=== PATIENT | male | born 1945 | race Caucasian/White ===

== ENCOUNTER → 2017-03-06 | Day surgery (SDC) | payer OTHER, BC ==
[2017-03-05 07:34] VITALS: Ht 170.2 cm; Wt 113.6 kg
[~2017-03-06] VITALS: Ht 170.2 cm; Wt 113.6 kg
[~2017-03-06] MED LIST: ACET-749 PO; ACETAMINOPHEN/CODEINE 300/30MG TAB PO PRN; ALLO300T2 PO; ATOR-54 PO; ATROPINE SULFATE 0.1 MG/ML 5ML SYR IV PRN; BUPIVACAINE 0.5 % 5 MG/1 ML MPF 30ML VIAL ONE; CLINDAMYCIN PHOS 150 MG/ML 2 ML VIAL IV SCH; DEXAMETHASONE SOD INJ 4 MG/ML VIAL ONE; FENTANYL CITRATE INJ 50 MCG/1 ML 2 ML VIAL IV PRN; FENTANYL CITRATE INJ 50 MCG/1 ML 2 ML VIAL ONE; KRIL1000 PO; LABETALOL HCL IV 5 MG/ML 20ML IV PRN; LACTATED RINGER'S 1000ML 1,000 ML IV SCH; LIDOCAINE HCL 2% 2 ML VIAL (20MG/ML) ONE; LIDOCAINE HCL 2% LOCAL 20 ML VIAL ONE; LISI20TA3 PO; MIDAZOLAM HCL 1 MG/ML 2ML VIAL ONE; NAPR1TAB9 PO; ONDANSETRON INJ 2 MG/ML 2 ML VIAL IV PRN; ONDANSETRON INJ 2 MG/ML 2 ML VIAL ONE; PANT40TA PO; PROPOFOL IV EMULSION 10 MG/ML 20 ML VIAL IV ONE; SODIUM CHLORIDE 0.9% 1000ML 1,000 ML IV SCH
--- NOTE | 2017-03-06 06:53 | History & Physical Bridge - [place] ---
H&P Re-Evaluation Bridge Note: I have examined the patient, reviewed the History & Physical and in the interval since the performance of the History & Physical I have noted the following changes of clinical significance: No changes noted
--- NOTE | 2017-03-06 07:35 | [facility] Post Operative Brief Note ---
Immediate Operative Summary Operative Date Mar 06, 2017. Pre-Operative Diagnosis Right Carpal Tunnel Syndrome Post-Operative Diagnosis Same Procedure(s) Performed Right Carpal Tunnel Release Surgeon Dr Atkinson Gettering Filament Machine Operator Surgeon(s) Norm Dukes PA-C Estimated Blood Loss Minimal Findings Right Carpal Tunnel Syndrome Specimens None Anesthesia Local with IV Sedation Complication(s) None Disposition Recovery Room / PACU
--- NOTE | 2017-03-06 07:36 | Discharge Instructions-SurgCtr ---
Discharge Instructions Date of Service Mar 06, 2017. Visit Reason for Visit: Right Carpal Tunnel Syndrome Discharge Discharge Diagnosis / Problem: RIGHT CARPAL TUNNEL SYNDROME Discharge Goals Goal(s): Decrease discomfort, Improve function, Therapeutic intervention Activity Recommendations Activity Limitations: per Instructions/Follow-up section LIMITED USE OF RIGHT HAND Anesthesia . Post Anesthesia Instructions: If you have had General Anesthesia or IV Sedation: * Do not drive today. * Resume driving when surgeon permits. * Do not make important decisions or sign legal documents today. * Call surgeon for: 1. Temperature elevations greater than 101 degrees F. 2. Uncontrollable pain. 3. Excessive bleeding. 4. Persistent nausea and vomiting. 5. Medication intolerance (nausea, vomiting or rash). * For nausea and vomiting use only clear liquids such as: tea, soda, bouillon until nausea subsides, then gradually increase diet as tolerated. * If you have any concerns or questions, call your surgeon's office. If physician is unavailable and it is an emergency, call 911 or go to the nearest emergency room. . Instructions / Follow-Up Instructions / Follow-Up MEDICATIONS: * Resume previous medications unless instructed otherwise by your surgeon. * Always take pain medication on a full stomach or with food to avoid upset stomach. * Do not drink alcohol or drive while taking narcotics. * Ibuprofen or Tylenol may be taken if narcotic not needed. SPECIAL CARE INSTRUCTIONS: __ None __ Keep extremity elevated and iced x 48 hours; apply ice 20-30 minutes 8-10 times/day. May remove at night. __ Sling __24 hrs/day __ Remove at night __ Shoulder Immobilizer __ 24 hrs/day __ Remove at night _X_ Dressing _X_ Maintain until seen in office, may shower with plastic over site __ Remove dressings in 24-48 hours and then may shower __ Cover incisions with band-aids after showering __ Do not remove steri-strips Call physician if chills or temperature rises above 102 degrees or pain unrelieved by prescribed pain medications at . . FOLLOW UP IN 2 WEEKS Diet Recommendations Home Diet: resume previous diet Procedures Procedures Performed: Right Carpal Tunnel Release Pending Studies Studies pending at discharge: no Medical Emergencies . Who to Call and When: Medical Emergencies: If at any time you feel your situation is an emergency, please call 911 immediately. . Non-Emergent Contact Non-Emergency issues call your: Surgeon . . "Provider Documentation" section prepared by Moreno Dukes. .
[2017-03-06 07:37] VITALS: TEMP 36.9
--- NOTE | 2017-03-06 07:50 | OPERATIVE REPORT ---
DATE OF OPERATION: 03/06/2017 SURGEON: Farhan Atkinson MD. RADIO ARTIST: REGLA Aceves. PREOPERATIVE DIAGNOSIS: Right carpal tunnel syndrome. POSTOPERATIVE DIAGNOSIS: Same. PROCEDURE PERFORMED: Right carpal tunnel release. COMPLICATION: None. ESTIMATED BLOOD LOSS: Minimal. TOURNIQUET TIME: 7 minutes at 250 mmHg. ANESTHESIA: Local with IV sedation. OPERATIVE INDICATIONS: The patient is a 71-year-old gentleman who has had a several-year history of right hand pain, discomfort and numbness consistent with a fairly classic carpal tunnel syndrome. His symptoms continued to progress despite conservative care. Significant nighttime awakening. He had some slight thenar atrophy as well. The patient elected to proceed with operative treatment. OPERATIVE PROCEDURE: The patient taken to the operating room, identified and placed on the operating table in supine position. All contact areas were appropriately padded. IV antibiotics provided by anesthesia team. A right forearm tourniquet was placed. Some IV sedation was provided. 9 mL of a 50:50 combination of 0.5% Marcaine and 2% lidocaine were then injected in and around the proposed incision site. The right hand was then prepped and draped in the usual sterile fashion. The right arm was elevated and exsanguinated with Esmarch and tourniquet was placed at 250 mmHg. A 3 cm incision was made in the palm, just ulnar to the palmaris longus tendon. Blunt dissection was carried out through the subcutaneous tissues down to the level of the palmar fascia. The palmar fascia was incised longitudinally in line with skin incision. The underlying transverse carpal ligament was identified. It was cleaned of all soft tissues. It was transected distally with use of a Donaldson blade knife and then bluntly spread. Attention then drawn proximally. Blunt dissection was carried out above and below the ligament proximally. The ligament was transected for a minimum distance of 3 cm proximal to the wrist flexion crease. The ligament was bluntly spread and found to be completely released. Of note, there was significant compression of the nerve underneath the ligament. The tourniquet was then let down for a tourniquet time of 7 minutes. Hemostasis was assured with use of electrocautery. The wound was once again irrigated. The skin was closed with 5-0 nylon suture in a horizontal mattress fashion. The hand was then cleaned and dried, and a sterile dressing of Xeroform, 4 x 4, sterile cast padding and Jaime bandage were applied. The patient then transferred to the recovery room in stable condition. The patient tolerated the procedure well with no complications. All needle and sponge counts were correct at the end of the operation. I attest to the content of the Intraoperative Record and any orders documented therein. Any exceptio ns are noted below.
[2017-03-06 07:58] VITALS: BP 137/84; PULSE 70; O2SAT 98
--- NOTE | 2017-03-06 08:05 | Anesthesia Progress Nt - [facility] ---
Anesthesia Post Op Note Date & Time Mar 06, 2017 at 08:04 Vital Signs Pain Intensity: 0 Vital Signs Past 12 Hours Date Time Temp Pulse Resp B/P Pulse Ox O2 Delivery O2 Flow Rate FiO2 03/06/17 07:58 70 18 137/84 98 Room Air 03/06/17 07:37 36.9 76 18 121/68 93 Room Air 03/06/17 06:22 36.8 79 20 139/78 96 Room Air Notes Mental Status: alert / awake / arousable, participated in evaluation Pt Amnestic to Procedure: Yes Nausea / Vomiting: adequately controlled Pain: adequately controlled Airway Patency, RR, SpO2: stable & adequate BP & HR: stable & adequate Hydration State: stable & adequate Anesthetic Complications: no major complications apparent
== END | disposition home or self-care (01) ==
LOC: X.SURG 06:06
PROVIDERS: ATTEND Orthopaedic Surgery Sports Medicine
DX: G56.01 Carpal tunnel syndrome, right upper limb (principal); I10 Essential (primary) hypertension; Z88.0 Allergy status to penicillin; Z96.651 Presence of right artificial knee joint; M19.90 Unspecified osteoarthritis, unspecified site

== ENCOUNTER → 2017-05-16 | Outpatient (CLI) | payer OTHER, BC ==
[~2017-05-16] MED LIST changes: -ACETAMINOPHEN/CODEINE 300/30MG TAB PO PRN; -ATROPINE SULFATE 0.1 MG/ML 5ML SYR IV PRN; -BUPIVACAINE 0.5 % 5 MG/1 ML MPF 30ML VIAL ONE; -CLINDAMYCIN PHOS 150 MG/ML 2 ML VIAL IV SCH; -DEXAMETHASONE SOD INJ 4 MG/ML VIAL ONE; -FENTANYL CITRATE INJ 50 MCG/1 ML 2 ML VIAL IV PRN; -FENTANYL CITRATE INJ 50 MCG/1 ML 2 ML VIAL ONE; -LABETALOL HCL IV 5 MG/ML 20ML IV PRN; -LACTATED RINGER'S 1000ML 1,000 ML IV SCH; -LIDOCAINE HCL 2% 2 ML VIAL (20MG/ML) ONE; -LIDOCAINE HCL 2% LOCAL 20 ML VIAL ONE; -MIDAZOLAM HCL 1 MG/ML 2ML VIAL ONE; -ONDANSETRON INJ 2 MG/ML 2 ML VIAL IV PRN; -ONDANSETRON INJ 2 MG/ML 2 ML VIAL ONE; -PROPOFOL IV EMULSION 10 MG/ML 20 ML VIAL IV ONE; -SODIUM CHLORIDE 0.9% 1000ML 1,000 ML IV SCH
[2017-05-16 09:37] LABS: BASO % 0.7 %; BASO ABS # 0.05 K/uL (0-0.2); COMPLETE YES; EOS % 4.7 %; HEMATOCRIT 42.3 % (42-52); IG% 0.4 %; LYMPH % 23.9 %; LYMPH ABS # 1.78 K/uL (1.2-3.4); MEAN CELL VOLUME 93.8 fL (80-100); MEAN CORPUSCULAR HEMOGLOBIN 29.5 pg (25-34); MEAN CORPUSCULAR HGB CONC 31.4 g/dl (32-36); MEAN PLATELET VOLUME 10.4 fL (7.4-10.4); MONO % 11.4 %; NEUT % 58.9 %; PLATELET COUNT 251 K/uL (130-400); RED BLOOD COUNT 4.51 M/uL (4.7-6.1); WHITE BLOOD COUNT 7.46 K/uL (4.8-10.8)
[2017-05-16 09:49] LABS: BLOOD UREA NITROGEN 28 mg/dl (7-18); BUN/CREATININE RATIO 21.3 (10-20); CALCIUM 9.4 mg/dl (8.5-10.1); CARBON DIOXIDE 23 mmol/L (21-32); CHLORIDE 104 mmol/L (98-107); GLUCOSE 95 mg/dl (70-99); POTASSIUM 4.8 mmol/L (3.5-5.1); SODIUM 135 mmol/L (136-145)
== END | disposition home or self-care (01) ==
LOC: C.LAB1850 07:00
PROVIDERS: ATTEND Internal Medicine Geriatric Medicine
DX: I10 Essential (primary) hypertension (principal); D64.9 Anemia, unspecified

== ENCOUNTER → 2017-08-05 | Outpatient (CLI) | payer OTHER, BC ==
[2017-08-05 13:24] LABS: BASO % 0.6 %; BASO ABS # 0.05 K/uL (0-0.2); COMPLETE YES; EOS % 2.8 %; IG% 0.5 %; LYMPH % 20.5 %; LYMPH ABS # 1.64 K/uL (1.2-3.4); MEAN CELL VOLUME 93.4 fL (80-100); MEAN CORPUSCULAR HEMOGLOBIN 32.1 pg (25-34); MEAN CORPUSCULAR HGB CONC 34.4 g/dl (32-36); MEAN PLATELET VOLUME 10.5 fL (7.4-10.4); MONO % 12.5 %; NEUT % 63.1 %; PLATELET COUNT 220 K/uL (130-400); RED BLOOD COUNT 4.39 M/uL (4.7-6.1)
[2017-08-05 17:26] LABS: ALT/SGPT 35 U/L (12-78); AMYLASE 79 U/L (25-115); AST/SGOT 27 U/L (15-37); BLOOD UREA NITROGEN 25 mg/dl (7-18); BUN/CREATININE RATIO 20.6 (10-20); CALCIUM 9.4 mg/dl (8.5-10.1); CARBON DIOXIDE 26 mmol/L (21-32); CHLORIDE 104 mmol/L (98-107); GLUCOSE 90 mg/dl (70-99); POTASSIUM 4.8 mmol/L (3.5-5.1); SODIUM 136 mmol/L (136-145)
[2017-08-05 17:29] LABS: ALB/GLOB RATIO 0.9 (0.9-2); ALKALINE PHOSPHATASE 75 U/L (45-117)
== END | disposition home or self-care (01) ==
LOC: C.LABBC 12:22
PROVIDERS: ATTEND Physician Assistant Medical
DX: R10.9 Unspecified abdominal pain (principal)

== ENCOUNTER → 2017-12-03 | Outpatient (CLI) | payer OTHER, BC ==
[~2017-12-03] MED LIST changes: -ACET-749 PO
[2017-12-03 09:33] LABS: BASO % 0.8 %; BASO ABS # 0.05 K/uL (0-0.2); EOS % 4.2 %; EOS ABS # 0.27 K/uL (0-0.5); HEMATOCRIT 40.7 % (42-52); HEMOGLOBIN 13.8 g/dL (14.0-18.0); IG# 0.02 K/uL (0.00-0.02); LYMPH % 25.8 %; LYMPH ABS # 1.68 K/uL (1.2-3.4); MEAN CELL VOLUME 95.1 fL (80-100); MEAN CORPUSCULAR HEMOGLOBIN 32.2 pg (25-34); MEAN CORPUSCULAR HGB CONC 33.9 g/dl (32-36); MONO ABS # 0.78 K/uL (0.11-0.59); NEUT % 56.9 %; PLATELET COUNT 249 K/uL (130-400); RED CELL DISTRIBUTION WIDTH SD 47.9 fL (36.4-46.3)
[2017-12-03 10:23] LABS: ALBUMIN 3.6 gm/dl (3.4-5.0); ALT/SGPT 35 U/L (12-78); AST/SGOT 27 U/L (15-37); BLOOD UREA NITROGEN 23 mg/dl (7-18); CALCIUM 9.6 mg/dl (8.5-10.1); CARBON DIOXIDE 28 mmol/L (21-32); CHOLESTEROL 165 mg/dl (0-200); CREATININE 1.17 mg/dl (0.60-1.40); GLUCOSE 93 mg/dl (70-99); POTASSIUM 4.3 mmol/L (3.5-5.1); SODIUM 138 mmol/L (136-145)
[2017-12-03 10:34] LABS: ALKALINE PHOSPHATASE 65 U/L (45-117); LDL CHOLESTEROL CALCULATED 74 mg/dl; TOTAL PROTEIN 7.4 gm/dl (6.4-8.2); URIC ACID 4.6 mg/dl (2.6-7.2)
== END | disposition home or self-care (01) ==
LOC: C.LAB1850 06:54
PROVIDERS: ATTEND Internal Medicine Geriatric Medicine
DX: Z12.5 Encounter for screening for malignant neoplasm of prostate (principal); I10 Essential (primary) hypertension; E78.5 Hyperlipidemia, unspecified; M19.90 Unspecified osteoarthritis, unspecified site; D64.9 Anemia, unspecified; M10.9 Gout, unspecified; R73.9 Hyperglycemia, unspecified; Z68.41 Body mass index [BMI] 40.0-44.9, adult

== ENCOUNTER 2022-02-01 06:37 | Inpatient (IN) ==
--- NOTE | 2022-01-26 13:39 | Anesthesiology Consultation ---
Date of Service January 26, 2022 Assessment & Plan (1) Encounter for pre-operative examination: Chart Review Chart Review: Acceptable Risk for Surgery (pending preop Covid testing results ) and Patient NOT seen in Pre Admission Testing Pt initially scheduled 12/04/21 for surgery (seen in PAT 11/14/21)- patient rescheduled to 02/01/22 Per nursing assessment 01/26/2022, patient denies any recent travel. Wears mask in public. No known Covid infection in the past 90 days. Patient is fully vaccinated for Covid. No known Covid positive exposures or Covid related symptoms. Preop Covid testing scheduled 01/30/22= will await results Patient seen by cardiology 11/24/2021= patient seen for preoperative cardiovascular evaluation. Recent diagnosis of left bundle branch block. "He is currently stable and asymptomatic from a cardiovascular standpoint with no anginal symptoms or shortness of breath. His functional status is somewhat limited due to his knee arthritis, though, and ECG shows new LBBB.Given his limited functional status, new LBBB, and cardiovascular risk factors, will perform a pharmacologic nuclear stress test to further evaluate for myocardial ischemia prior to surgery. The nuclear study will be scheduled in the near future. Pending the results, patient is at an acceptable risk to proceed with orthopedic surgery." Per cardio communication note 12/15/21= "Please notify patient that his stress test was normal... He can proceed with surgery from a heart standpoint." History Surgery Operation Date: 02/01/22 12:30 Proposed Procedures p Left Total Knee Arthroplasty - Farhan Atkinson MD Height/Weight Height: 5 ft 3 in Weight: 97 kg Allergies Allergy/AdvReac Type Severity Reaction Status Date / Time Penicillins Allergy Intermediate RASH Verified 01/26/22 11:52 clindamycin Allergy Unknown Rash Verified 01/26/22 11:52 shellfish derived Allergy Unknown Rash-WITH Verified 01/26/22 12:14 SHELLFISH Medications Home Medications Medication Instructions Recorded Confirmed Last Taken Prevagen 1 dose PO QAM 10/30/21 01/26/22 Unknown allopurinol 300 mg tablet 300 mg PO QAM 10/30/21 01/26/22 Unknown amino acids (Amino Acid) 1 cap PO QAM 10/30/21 01/26/22 Unknown atorvastatin 40 mg tablet 40 mg PO QAM 10/30/21 01/26/22 Unknown famotidine 20 mg tablet 20 mg PO QAM PRN 10/30/21 01/26/22 Unknown lisinopril 40 mg tablet 40 mg PO QAM 10/30/21 01/26/22 Unknown pantoprazole 40 mg tablet,delayed 40 mg PO QAM 10/30/21 01/26/22 Unknown release Past Medical History Medical History Chronic kidney disease F/U PCP GERD (gastroesophageal reflux disease) Well controlled and stable Gout No recent issues Hx of hiatal hernia Hyperlipidemia Hypertension Lumbar radiculopathy Mild cognitive disorder Osteoarthritis Past Family History Family History Mother Myocardial infarction Father Lung cancer Denies family history of Ovarian cancer Prostate cancer Breast cancer Colorectal cancer Past Surgical History Surgical History History of carpal tunnel release bilat History of colonoscopy History of total right knee replacement History of ventral hernia repair History of wisdom tooth extraction S/P cholecystectomy Social History Smoking Status: Never smoker Do You Dip or Chew Tobacco: No Hx Alcohol Use: Yes Alcohol type: beer alcohol intake frequency: a few times a week Hx Substance Use: No substance use type: does not use Lab Results Anesthesia Preop Results Results Anesthesia Widget: WBC 6.39 K/uL (4.8-10.8) 01/25/22 Hgb 13.3 g/dL (14.0-18.0) L 01/25/22 Hct 40.5 % (42-52) L 01/25/22 Plt 267 K/uL (130-400) 01/25/22 Na 139 mmol/L (136-145) 01/25/22 K 3.5 mmol/L (3.5-5.1) 01/25/22 Cl 104 mmol/L (98-107) 01/25/22 CO2 29 mmol/L (21-32) 01/25/22 BUN 17 mg/dl (6-23) 01/25/22 Creat 1.12 mg/dl (0.6-1.4) 01/25/22 Glucose Level 92 mg/dl (70-99(Fasting)) 01/25/22 PT 11.9 Seconds (9.0-12.0) 01/25/22 INR 1.1 (0.9-1.1) 01/25/22 Blood Type O Negative 01/25/22 Antibody Screen NEGATIVE 01/25/22 Lab Comments: Pt's creatinine on initial preop testing on 11/14/21 was 1.51- did inform PCP- had repeat labs- PCP changed patient from Aleve to Tylenol and cleared patient to proceed with surgery 12/22/21 per [employer] Communication notes- pt's creatinine improved on 01/25/22 labs Testing Electrocardiogram Date: 11/14/21 Findings: + NSR @ (73bpm) LBBB (Referred to cardio- had negative nuclear stress test 12/14/21) Chest X-Ray Date: 11/14/21 Findings: + NAD and + cardiomegaly (mild) Stress Test Date: 12/14/21 Type: nuclear Negative myocardial perfusion study for ischemia or infarct. Hyperdynamic LV systolic function. EF 71%. Normal wall motion. Left bundle branch block developed at faster heart rate suggesting rate related bundle. No Lexiscan induced symptoms. Indeterminate Lexiscan EKG due to left bundle branch block.
--- NOTE | 2022-01-29 00:50 | History and Physical Report ---
CHIEF COMPLAINT: Left knee pain and discomfort. HISTORY OF PRESENT ILLNESS: The patient is a 76-year-old gentleman well known to me from a previous right knee replacement 9 years ago. Over the years, he has developed increased pain and discomfort in his left knee. It is a global pain. The more he is up on it, the more it hurts. He limps more as the day goes on. He has difficulty going up and down steps. He uses a cane intermittently. The more he is up on it, the more it hurts. He has failed conservative treatment and would like to have his left knee replaced. Very happy with his right knee. PAST MEDICAL HISTORY: 1. Osteoarthritis. 2. Elevated cholesterol. 3. Hypertension. 4. Obesity with a BMI of 40. PAST SURGICAL HISTORY: Includes, 1. Cholecystectomy. 2. Right knee replacement done on 11/19/2011. 3. Left carpal tunnel release. ALLERGIES: PENICILLIN, REACTION IS UNKNOWN. ALSO, DESCRIBES AN ALLERGY TO CLINDAMYCIN. CURRENT MEDICATIONS: Include, 1. Allopurinol. 2. Atorvastatin. 3. Lisinopril. 4. Famotidine. 5. Unspecified med. SOCIAL HISTORY: A 76-year-old male. He is . One drink per week. He does not smoke. FAMILY HISTORY: Significant for lung cancer. REVIEW OF SYSTEMS: Negative for diabetes. Denies any chest pain or shortness of breath. No history of DVT or PE. He has a limited walking tolerance due to his knee. He did have a cardiac stress test, which was normal. PHYSICAL EXAMINATION: GENERAL: Shows a large middle-aged male. He looks to be in reasonably good health. HEENT: Benign. NECK: Supple. No lymphadenopathy. LUNGS: Clear to auscultation. HEART: Has a regular rate and rhythm. ABDOMEN: Soft, nontender, nondistended. EXTREMITIES: Grossly neurovascularly intact except as follows: Examination of the left knee reveals the patient walks with a stiff knee gait. He keeps his knee pretty straight. He does limp on this left side. Range of motion is about 5 degrees short of full extension to about 100 degrees of flexion at best. Fairly stiff knee. Small knee effusion. No pain with hip motion. Examination of the right knee reveals a well-healed incision. Anatomic alignment. Range of motion is 0-120. X-RAYS: X-rays of the left knee reveal advanced left knee tricompartment DJD. He has got complete loss of his medial joint space. He has significant tibiofemoral subluxation. He has got destruction of the medial tibial plateau. Osteophytes in all 3 compartments. ASSESSMENT: A 76-year-old male 9 years out from a right knee replacement with advanced left knee tricompartment degenerative joint disease. He has failed conservative measures. He has got other medical comorbidities including elevated cholesterol, hypertension, and obesity. PLAN: We are going to take him to the operating room and do a left knee replacement. The risks and benefits of this procedure were explained to the patient to include, but not limited to, DVT, PE, , infection, neurological injury, vascular injury, bleeding problems, pain, limited range of motion, stiffness, failure to relieve his symptoms, incomplete relief of symptoms, need for further surgery in the future, etc. The patient understands and desires to proceed. Informed consent was obtained. As far as discharge plans, he is going to be discharged to home using [facility]. We will likely put a stem in his tibia due to his severe deformity along with some vancomycin in the cement. Will hold the lisinopril the morning of surgery. Job ID: [id number] [facility]
[~2022-02-01 06:37] MED LIST changes: +ACETAMINOPHEN 500 MG TAB PO SCH; -ALLO300T2 PO; -ATOR-54 PO; +BUPIVACAINE 0.5 % 5 MG/1 ML PF 10ML VIAL ONE; -KRIL1000 PO; -LISI20TA3 PO; +LR 500ML BOLUS, THEN 15ML/HR IV SCH; +LR 60ML/HR IV SCH; -NAPR1TAB9 PO; -PANT40TA PO; +ceFAZolin 2000MG 2,000 MG/15 ML SYR IV SCH
--- NOTE | 2022-02-01 06:49 | History & Physical Bridge Note ---
Date of Service February 01, 2022 History & Physical Bridge Note I have examined the patient, reviewed the History & Physical and in the interval since the performance of the History & Physical I have noted the following changes of clinical significance: no changes noted
[2022-02-01] MEDS ORDERED: fentaNYL citrate 100 MCG/2 ML VIAL ONE (07:46)
[2022-02-01] MEDS ORDERED: MIDAZOLAM HCL 1 MG/ML 2ML VIAL ONE (07:46)
[2022-02-01] MEDS ORDERED: ATROPINE SULFATE 0.1 MG/ML 10ML SYR IV PRN (08:11)
[2022-02-01] MEDS ORDERED: fentaNYL citrate 100 MCG/2 ML VIAL IV PRN (08:11)
[2022-02-01] MEDS ORDERED: ePHEDrine sulfate 50 MG/ML AMP IV PRN (08:11)
[2022-02-01] MEDS ORDERED: ONDANSETRON INJ 2 MG/ML 2 ML VIAL IV PRN ×2 (08:11→12:36)
[2022-02-01] MEDS ORDERED: PROPOFOL IV EMULSION 10 MG/ML 20 ML VIAL IV ONE ×6 (08:12→10:41)
[2022-02-01] MEDS ORDERED: ONDANSETRON INJ 2 MG/ML 2 ML VIAL ONE (08:12)
[2022-02-01] MEDS ORDERED: ACETAMINOPHEN 500 MG TAB ONE (08:45)
[2022-02-01] MEDS ORDERED: FAMOTIDINE 20 MG TAB ONE (08:45)
[2022-02-01] MEDS ORDERED: TRANEXAMIC ACID / 0.7% NACL 1000MG/100ML BAG IV ONE (08:46)
[2022-02-01] MEDS ORDERED: SODIUM CHLORIDE 0.9% PF 50 ML VIAL ONE (09:05)
[2022-02-01] MEDS ORDERED: BUPIVACAINE/EPINEPHRINE 0.25% 1:200,000 30 ML VIAL ONE (09:05)
[2022-02-01] MEDS ORDERED: BUPIVACAINE LIPOSOME 1.3% 266 MG/20 ML VIAL ONE (09:06)
[2022-02-01] MEDS ORDERED: TRANEXAMIC ACID 1,000 MG **IV Intra-op IV SCH (09:15)
[2022-02-01] MEDS ORDERED: BUPIVACAINE LIPOSOME/PF 266 MG, BUPIVACAINE/EPINEPHRINE 50 ML, SODIUM CHLORIDE 0.9% 30 ... INFIL SCH (09:15)
[2022-02-01] MEDS ORDERED: FAMOTIDINE 20 MG TAB PO SCH (09:15)
[2022-02-01] MEDS ORDERED: LABETALOL HCL IV 5 MG/ML 20ML IV ONE (10:41)
--- NOTE | 2022-02-01 11:28 | Operative Report ---
[facility] Post Operative Report Pre & Post Diagnosis Operation Date: 02/01/22 08:50 Pre-Op Diagnosis: left knee tricompartment degenerative joint disease Post-Op Diagnosis: left knee tricompartment degenerative joint disease I identified the patient and participated in the time-out.: Yes Procedure Operation Date: 02/01/22 08:50 Actual Procedures p Left Total Knee Replacement(Left) - Farhan Atkinson MD Surgeon Farhan Atkinson MD Early Breastfeeding Care Specialist Norm Dukes PA-C Estimated Blood Loss 100 Findings Consistent with Post-Op Diagnosis Operative findings revealed extensive grade 4 [id number] disease in all 3 compartments. He had severe destruction medial tibial plateau. Large osteophytes in all 3 compartments. Fixed varus deformity to his knee and about a 10 degree flexion contracture. Chronic ACL deficiency. Fluids 500 cc Specimens Right knee sent for pathology Anesthesia Type Spinal MAC Complications none Disposition Accompanied Patient To Recovery: No Indications Patient is a 76-year-old gentleman said a long history of knee problems. He had a right knee replaced about 8 years ago and is done well from this. Over the past several years he developed increased pain discomfort in his knee. He has been through extensive conservative treatment. He was having trouble even walking at all due to his severe pain in this left knee. X-rays show extensive arthritis. He elected proceed with total knee arthroplasty. Patient had a very significant tibiofemoral subluxation and therefore we used a tibial stem to maximize that stability. Description of Procedure Operative implants consist of: 1 Biomet Vanguard size 65 left posterior stabilized femoral component. 2. Biomet size 71 tibial tray with an 80 mm x 14 mm stem with a 2.5 mm offset and small cruciate wing. 3. 14 mm posterior stabilized polyethylene insert. 4. 31 x 8 all polypatella. The patient was taken the operating, identified, and placed on the operating table supine position protectors were properly padded. IV antibiotics tried by anesthesia team. A spinal anesthetic and been implemented holding area. A White catheter was placed in sterile fashion. A left thigh tourniquet in place and left lower extremities then prepped and draped in usual sterile fashion. The left leg was elevated exsanguinated with use of an Esmarch in terms playset 300 mmHg. We eventually had to increase this to 350 as he continued to have some venous bleeding. An anterior approach left knee was then performed to longitudinal incision centered over the patella. Sharp dissection was carried through subcutaneous tissue down to the extensor mechanism. A medial parapatellar arthrotomy incision was made. Some subperiosteal dissection carried out medially. The fat pad was dissected from each patella tendon. Lateral patellofemoral ligament was released. Patella was subluxated laterally and the knee was flexed. The osteophyte taken off distal femur. ACL was absent. The notch was overgrown with bone. The osteophytes were removed from the notch. The PCL was then released from the distal femur and the tibia subluxated anteriorly. Due to his deformity we elect to use an IM guide to place a stem. The tibial eminence was resected. I reamed the IM canal up to 14. The reamer was left in place and the proximal tibial cut was made and was even above the most deficient area of the medial tibial. The tibia was then sized to a size 71. The 2.5 mm offset device was placed in the proximal tibia was prepared for a 2.5 mm offset stem small cruciate wing. The implant was assembled and placed in the tibia and fit nicely. Attention drawn the femur. Distal femur exam with a sharp drop with intramedullary canal was suction. A left 6 degree valgus cutting guide was placed. Distal femoral cutting block was pinned in place but distal femoral cut was made to take an additional 3 mm of bone off distal femur. Femur was then sized to a size 65. The AP cutting block was pinned parallel to the epicondylar axis which was 5 degrees of external rotation. The anterior cut, anterior chamfer, posterior cut, posterior chamfer cuts were made. The box cutting guide was placed in just slight lateral box cut was made. The knee was flexed. The remnants of the medial lateral menisci were excised. The osteophytes were taken off the posterior aspect of the femur. Trial femoral component was placed. The tibial tray was already in place. We then trialed the knee in the 14 mm insert for the seem to fit most appropriate and tried the most stability. Attention drawn the patella. Toe was cleaned of all soft tissue. Patella thickness measured 22 mm in thickness was cut down to 14. Was sized to a size 31 patella. The lug holes w ere drilled for the 31 patella. The lateral osteophyte is moved. Patella button was placed. Knee was taken through range of motion patella tracked nicely with no thumbs test. Attention drawn to placing permanent components. Nupathe all trial components were removed. Bone plug was placed in the distal femur to limit blood loss. A double batch of Palacos G cement was mixed. A Biomet Vanguard size 65 left posterior stabilized femoral component, a size 71 tibial tray with a 80 x 14 mm offset extension and a small cruciate wing, a 14 mm posterior stabilized polyethylene insert, and 31 x 8 all polypatella were then cemented in place. The knee was brought out in full extension total cement hardened. Final cement check was then performed. Pericapsular tissues were injected with total 100 cc of combination of 20 cc of Exparel, 30 cc normal saline, 50 cc of quarter Marcaine with epinephrine. Patient did receive 1 g tranexamic acid per the tourniquet was then let down for tourniquet time of 83 minutes. Hemostasis assured use electrocautery. Extensor mechanism closed with combination 1 PDS suture #1 Vicryl suture in [id number] fashion. Extensor mechanism checked by me intact with subcutaneous tissue then closed 2 Dexon suture in a buried knot fashion skin was closed skin hetal. Leg was then cleaned dried a sterile dressing both Xeroform, 4 x 4's, sterile cast padding, Jaime bandage applied. Patient then transferred to the recovery room in stable condition. Patient tolerated procedure well and there were no complications. Norm Dukes, my physician accounting assistant, was present for the entire procedure. His assistance was essential and required for appropriate patient positioning, prepping and draping, surgical exposure, performing the technical details of the operation, placement the implants, closure of the wound, and placement of the sterile bandage. I attest to the content of the Intraoperative Record and any orders documented therein. Any exceptions are noted below.
--- NOTE | 2022-02-01 12:08 | XRay Report ---
XR knee LT 1 or 2V routine CLINICAL HISTORY: Surgical Post Op COMPARISON: Left knee radiographs June 19, 2021. FINDINGS: Fluoroscopy was provided during total left knee arthroplasty with long stem tibial compone nt. There is no periprosthetic fracture. Skin hetal are present. Hardware is intact. Vascular calci fication is incidentally noted. IMPRESSION: Fluoroscopy provided during total left knee arthroplasty. ACT 112: Negative or not required by law. Electronically signed by: Carson Alvarado M.D. 02/01/2022 12:07 PM
[2022-02-01] MEDS ORDERED: FAMOTIDINE 20 MG TAB PO PRN (12:36)
[2022-02-01] MEDS ORDERED: METOCLOPRAMIDE HCL INJ 5 MG/ML 2 ML VIAL IV PRN (12:36)
[2022-02-01] MEDS ORDERED: oxyCODONE HCL IR 5 MG TAB (IMMEDIATE RELEASE) PO PRN (12:36)
[2022-02-01] MEDS ORDERED: ALUMINUM/MAGNESIUM SUSP 30 ML UDC PO PRN (12:36)
[2022-02-01] MEDS ORDERED: MAGNESIUM HYDROXIDE SUSP 30 ML UDC PO PRN (12:36)
[2022-02-01] MEDS ORDERED: NALOXONE HCL 0.4 MG/1 ML VIAL/CARP IV PRN (12:36)
[2022-02-01] MEDS ORDERED: HYDROmorphone INJ 0.5 MG/0.5 ML SYR IV PRN (12:36)
[2022-02-01] MEDS ORDERED: bisacodyL 10 MG SUPP PR PRN (12:36)
[2022-02-01] MEDS ORDERED: ONDANSETRON 4 MG OD TAB PO PRN (12:46)
[2022-02-01] MEDS: SODIUM CHLORIDE 0.9% 1000ML 1,000 ML IV SCH ×2 (12:47→21:30)
[2022-02-01] MEDS: KETOROLAC TROMETHAMINE 15 MG/ML VIAL IV SCH ×2 (13:09→18:11)
[2022-02-01] MEDS: ACETAMINOPHEN 500 MG TAB PO SCH ×2 (13:10→21:33)
--- NOTE | 2022-02-01 14:04 | Anesthesiology Progress Note ---
Date of Service February 01, 2022 Anesthesia Post Procedure Vital Signs Vital Signs: Temp Pulse Pulse Resp BP BP Pulse Ox 02/01/22 13:41 36.7 C 02/01/22 13:29 82 18 162/67 H 99 02/01/22 13:01 36.3 C L 67 16 148/74 H 97 02/01/22 12:15 72 16 124/76 95 02/01/22 12:00 36.4 C L 74 16 120/80 98 02/01/22 11:50 72 14 120/76 97 02/01/22 11:40 78 14 133/70 98 02/01/22 11:30 86 14 128/70 100 02/01/22 11:21 37.0 C 89 14 130/68 95 02/01/22 07:38 36.8 C 100 H 18 133/78 97 Transfer of Care Handoff Completed per policy Notes Mental Status: alert / awake / arousable and participated in evaluation Patient Amnestic to Procedure: Yes Nausea / Vomiting: adequately controlled Pain: adequately controlled Airway Patency, RR, SpO2: stable & adequate BP & HR: stable & adequate Hydration State: stable & adequate Neuraxial Anesthesia: was administered and sensory block is resolving Anesthetic Complications: no major complications apparent and Pt Satisfied with anesthetic care
--- NOTE | 2022-02-01 17:01 | Electrocardiogram Report ---
Test Reason : Blood Pressure : / mmHG Vent. Rate : 080 BPM Atrial Rate : 080 BPM P-R Int : 236 ms QRS Dur : 148 ms QT Int : 434 ms P-R-T Axes : 107 033 210 degrees QTc Int : 500 ms Sinus rhythm with 1st degree A-V block Left bundle branch block Abnormal ECG When compared with ECG of 15-NOV-2021 17:19, DC interval has increased T wave inversion more evident in Inferior leads Confirmed by Dakotah Ma ([id number]) on 02/01/2022 5:00:57 PM Referred By: Farhan Atkinson Confirmed By:Tk Ma
[2022-02-01] MEDS ORDERED: TRANEXAMIC ACID / 0.7% NACL 1,000 MG/100 ML BAG IV SCH (17:30)
[2022-02-01] MEDS: ceFAZolin 2000MG 2,000 MG/15 ML SYR IV SCH (18:03)
[2022-02-01] MEDS: ASCORBIC ACID 500 MG TAB PO SCH (18:03)
[2022-02-01] MEDS: TAPENTADOL HCL ER 50 MG TABCR PO SCH (21:31)
[2022-02-01] MEDS: DOCUSATE SODIUM 100 MG CAP PO SCH (21:32)
[2022-02-01] MEDS: SENNA 8.6 MG TAB PO SCH (21:32)
[2022-02-01] MEDS: ASPIRIN 81 MG ECTAB PO SCH (21:34)
[2022-02-02] MEDS: KETOROLAC TROMETHAMINE 15 MG/ML VIAL IV SCH ×4 (00:59→17:35)
[2022-02-02] MEDS: ceFAZolin 2000MG 2,000 MG/15 ML SYR IV SCH (01:00)
[2022-02-02] MEDS: ACETAMINOPHEN 500 MG TAB PO SCH ×3 (05:54→21:46)
[2022-02-02 06:18] LABS: Hematocrit (blood only) 33.8 % (42-52); Hemoglobin 11.2 g/dL (14.0-18.0); Mean Corpuscular Hemoglobin 31.2 pg (25-34); Mean Corpuscular Hgb Conc 33.1 g/dL (32-36); Mean Corpuscular Volume 94.2 fL (80-100); Mean Platelet Volume 10.6 fL (7.4-10.4); Platelet Count 202 K/uL (130-400); RDW Coefficient of Variation 13.7 % (11.5-14.5); RDW Standard Deviation 47.4 fL (36.4-46.3); Red Blood Count 3.59 M/uL (4.7-6.1); White Blood Count 9.03 K/uL (4.8-10.8)
[2022-02-02 06:43] LABS: BUN Creatinine Ratio 14.7 (10-20); Calcium 8.2 mg/dl (8.5-10.1); Creatinine Clr Calc Pharmacy 52.6 ml/min; Est GFR (African American) 61.6 ml/min; Est GFR (Non-African American) 53.1 ml/min; Potassium 3.9 mmol/L (3.5-5.1)
--- NOTE | 2022-02-02 07:51 | Progress Notes ---
DATE OF SERVICE: 02/02/2022. SUBJECTIVE: A 76-year-old gentleman, postoperative day 1 from a left knee replacement. He is doing pretty well. Pain is controlled. No chest pain or shortness of breath. Not feeling dizzy or lighth eaded. OBJECTIVE: VITAL SIGNS: Temperature 36.5. Vital signs are stable. GENERAL: Shows a pleasant, elderly male. He is sitting up in bed, looks pretty comfortable. Awake, alert and oriented. LUNGS: Clear to auscultation. HEART: Regular rate and rhythm. ABDOMEN: Soft, nontender, nondistended. EXTREMITIES: Grossly neurovascularly intact except as follows: Examination of the left leg reveals the leg to be well aligned. Dressing is clean, dry, and intact. He can dorsiflex and plantarflex hi s foot appropriately. He is neurologically intact. LABORATORY DATA: Hemoglobin is 11.2. Hematocrit 33.8. Electrolytes are stable. ASSESSMENT: A 76-year-old gentleman, postoperative day 1 from left knee replacement, doing well. Hi s pain is controlled. He is neurologically intact. PLAN: 1. DVT prophylaxis includes thigh-high TEDs, SCDs, and aspirin twice a day. 2. PT/OT. He can weight bear as tolerated. Left total knee protocol. 3. Pain control, doing okay with current pain regimen. 4. Disposition: He is hoping to be discharged to home with some home health. We will see how isamar corona goes today. Job ID: [id number]
[2022-02-02] MEDS ORDERED: dexAMETHasone 10 MG in SYRINGE 0 ML IV SCH (08:00)
[2022-02-02] MEDS: ASCORBIC ACID 500 MG TAB PO SCH ×2 (08:13→17:35)
[2022-02-02] MEDS: ASPIRIN 81 MG ECTAB PO SCH ×2 (08:13→20:30)
[2022-02-02] MEDS: DOCUSATE SODIUM/SENNA 50/8.6MG TAB PO SCH (08:14)
[2022-02-02] MEDS: PANTOprazole 40 MG TAB PO SCH (08:14)
[2022-02-02] MEDS: TAMSULOSIN HCL 0.4 MG CAP PO SCH (08:15)
[2022-02-02] MEDS: ATORVASTATIN 40 MG TAB PO SCH (08:15)
[2022-02-02] MEDS: allopurinoL 300 MG TAB PO SCH (08:15)
[2022-02-02] MEDS: lisinopril 40 MG TAB PO SCH (08:16)
[2022-02-02] MEDS: MULTIVITAMIN TAB PO SCH (08:17)
[2022-02-02] MEDS: DOCUSATE SODIUM 100 MG CAP PO SCH ×2 (08:17→20:29)
[2022-02-02] MEDS: TAPENTADOL HCL ER 50 MG TABCR PO SCH (08:25)
[2022-02-02] MEDS ORDERED: NON-FORMULARY MEDICATION (Prevagen 1 EA) PO SCH (09:00)
[2022-02-02] MEDS ORDERED: NON-FORMULARY MEDICATION (Amino Acids [Amino Acid] Capsule) PO SCH (09:00)
[2022-02-02] MEDS: SENNA 8.6 MG TAB PO SCH (20:30)
[2022-02-03] MEDS: KETOROLAC TROMETHAMINE 15 MG/ML VIAL IV SCH ×2 (00:52→06:01)
[2022-02-03] MEDS: ACETAMINOPHEN 500 MG TAB PO SCH ×2 (06:01→14:19)
[2022-02-03] MEDS: ASCORBIC ACID 500 MG TAB PO SCH ×2 (08:48→16:33)
[2022-02-03] MEDS: TAMSULOSIN HCL 0.4 MG CAP PO SCH (08:48)
[2022-02-03] MEDS: DOCUSATE SODIUM/SENNA 50/8.6MG TAB PO SCH (08:48)
[2022-02-03] MEDS: DOCUSATE SODIUM 100 MG CAP PO SCH (08:49)
[2022-02-03] MEDS: lisinopril 40 MG TAB PO SCH (08:49)
[2022-02-03] MEDS: ASPIRIN 81 MG ECTAB PO SCH (08:49)
[2022-02-03] MEDS: PANTOprazole 40 MG TAB PO SCH (08:49)
[2022-02-03] MEDS: MULTIVITAMIN TAB PO SCH (08:49)
[2022-02-03] MEDS: allopurinoL 300 MG TAB PO SCH (08:50)
[2022-02-03] MEDS: ATORVASTATIN 40 MG TAB PO SCH (08:50)
--- NOTE | 2022-02-03 09:13 | Progress Notes ---
DATE OF SERVICE: 02/03/2022. SUBJECTIVE: A 76-year-old gentleman postoperative day 2 from a left knee replacement. He has been a bit confused. Seems to be a little bit better today, but still some confusion. Denies any pain. N o chest pain or shortness of breath. Not feeling dizzy or lightheaded. OBJECTIVE: VITAL SIGNS: Temperature 36.5. Vital signs are stable. PHYSICAL EXAMINATION: GENERAL: Shows a pleasant elderly male. He is sitting up in bed. He is clearly to some degree conf used, but at other times says appropriate things. EXTREMITIES: Examination of the left leg reveals the leg to be well aligned. Dressing is clean, dry and intact. He can dorsiflex and plantarflex his foot appropriately. He can do a straight leg rais e. ASSESSMENT: A 76-year-old gentleman postoperative day 2 from a left knee replacement, doing okay. B iggest issue right now is confusion. Seems to be a little bit better, but still present. PLAN: 1. DVT prophylaxis including thigh-high TEDs, SCDs, and aspirin. 2. PT, OT, weightbear as tolerated. Left total knee protocol. 3. Pain control. We are going to hold all narcotic pain medicines and just use Tylenol to avoid con fusion. 4. Disposition: He was hoping to go home, but we will see how his confusion clears. In reality, pr obably the best thing for him to do is to go home. His is not feeling comfortable with that now . We may consider rehab if he has not gotten better in the next day or so. Job ID: [id number]
--- NOTE | 2022-02-08 08:37 | Discharge Summary ---
Date of Service February 08, 2022 Discharge Data Procedures Performed Operation Date: 02/01/22 08:50 Actual Procedures p Left Total Knee Replacement(Left) - Farhan Atkinson MD Hospital Course (1) Status post total left knee replacement: Francisco is a 76 year old patient admitted on 02/01/22 and underwent total knee arthroplasty. He tolerated the procedure well and there were no complications. Transferred to the PACU post op and later to the orthopedic floor for further care. He was given ancef for antibiotic prophylaxis. He was also given KEKE stockings, SCDs, and aspirin for DVT prophylaxis. Hemoglobin, hematocrit, and vital signs were monitored during his hospital stay and remained stable. Did not require any blood transfusions. There were no complications during his hospital stay. By post op day #2 the patient was tolerating a regular diet, pain was reasonably controlled with oral pain medicine, and he was participating in physical therapy. On post op day #2 the patient was discharged to a rehab facility. He was given printed discharge instructions including prescriptions for extra strength tylenol, aspirin, toradol, oxycodone, zofran, and flomax. Continue physical therapy, weight bearing as tolerated. Continue KEKE stockings. Follow up approximately 2 weeks post op or sooner if there are problems or concerns. Coding Level of Care Code None Diagnoses Status post total left knee replacement Z96.652
== END 2022-02-03 17:39 | DRG 470 ==
LOC: ASU 06:37 → 3E 06:37
DX: Z90.49 Acquired absence of other specified parts of digestive tract; N18.9 Chronic kidney disease, unspecified; M17.12 Unilateral primary osteoarthritis, left knee; E78.00 Pure hypercholesterolemia, unspecified; E66.9 Obesity, unspecified; Z91.013 Allergy to seafood; E78.5 Hyperlipidemia, unspecified; Z96.651 Presence of right artificial knee joint; Z79.82 Long term (current) use of aspirin; Z68.32 Body mass index [BMI] 32.0-32.9, adult; M10.9 Gout, unspecified; Z88.0 Allergy status to penicillin; K21.9 Gastro-esophageal reflux disease without esophagitis; Z88.1 Allergy status to other antibiotic agents; I12.9 Hypertensive chronic kidney disease with stage 1 through stage 4 chronic kidney disease, or unspecified chronic kidney disease

== ENCOUNTER 2022-05-24 14:46 | Inpatient (IN) ==
--- NOTE | 2022-05-24 15:07 | Emergency Department Note ---
Impression & Plan Pneumonia, GATO (acute kidney injury), Altered mental status ED Provider Note NAME: CHRISTINA NAJERA AGE: 77 SEX: M : 1945 ARRIVES VIA: Ambulance INFORMANT: Patient ED PROVIDER(S): Yunior Rinaldi DO CHIEF COMPLAINT: AMS HPI: Patient is a 77-year-old male with a past medical history of GERD, hyperlipidemia, hypertension, mild cognitive disorder that presents to the ER for confusion which been worsening the past 4 days associated with not eating or drinking. Patient denies all complaints and has no headache or change in vision. No chest pain or shortness of breath. No nausea, vomiting, or diarrhea. No dysuria, urgency, or frequency. No other exacerbating or remitting factors. does note that patient has not been eating or drinking. ROS: See above HPI for pertinent positives & negatives. A total of 10 systems reviewed and were otherwise negative. PAST MEDICAL HISTORY:See Below PAST SURGICAL HISTORY:See Below FAMILY HISTORY:See Below SOCIAL HISTORY:See Below HOME MEDICATIONS:See Below ALLERGIES:See Below VITALS:See Below PHYSICAL EXAMINATION: GENERAL: Sitting up in bed, alert, well appearing, well nourished, no distress, non-toxic EYE EXAM: normal conjunctiva. PERRL and EOM's grossly intact. OROPHARYNX: no exudate, no erythema, lips, buccal mucosa, and tongue normal and mucous membranes are moist NECK: supple, no nuchal rigidity, no adenopathy, non-tender LUNGS: Clear to auscultation. Normal chest wall mechanics HEART: no murmurs, S1 normal and S2 normal ABDOMEN: abdomen soft, non-tender, normo-active bowel sounds, no masses, no rebound or guarding. BACK: Back is symmetrical on inspection and there is no deformity, no midline tenderness, no CVA tenderness. UPPER EXTREMITIES: upper extremities are grossly normal. LOWER EXTREMITIES: No pitting edema. NEURO EXAM: Normal sensorium, cranial nerves II-XII grossly intact, normal speech, no gross weakness of arms, no gross weakness of legs. MEDICAL DECISION MAKING: Patient is a 77-year-old male who presents ER for above-stated complaint. IV was established blood work was obtained. Labs show no significant leukocytosis or anemia. INR was unremarkable. BMP with a slightly low CO2 and a creatinine of 2.2 up from baseline of 1. LFTs bilirubin and troponin were negative. Pro- Parmjit was normal. UA was unremarkable. Patient was COVID-positive but this did not result initially. CT suggested bilateral infiltrates in the chest when perf ormed on the abdomen pelvis which caught the lower lung gonzalez. Patient was given Rocephin and azithromycin. Was updated bedside. Admitted for further work-up. Triage Nursing notes reviewed. Limited review of prior medical records performed Vital Signs: reviewed and remarkable for HTN Differential diagnosis: Infection, dehydration, metabolic abnormality, hypo/hyperglycemia, electrolyte disturbance, anemia, hypoxia, cardiac sources, intracerebral event, toxicologic, neurologic, as well as other pathologies. ER treatment provided: See below Diagnostics interpreted by me: ECG: Sinus rhythm rate 88 Normal axis Poor baseline T wave inversions lateral leads QTC 498 No significant change from previous Cardiac Monitoring: An order was placed for continuous cardiac monitoring. The monitor shows a rate of 90 with sinus rhythm. Laboratory studies: As stated above and show below. Imaging studies: CT abdomen pelvis shows pneumonia bilateral bases CT head was unremarkable Consultation(s): Discussed with Matteo Potts for further evaluation Procedures: none Critical Care: None Past Med/Surg History Medical History Cellulitis Chronic kidney disease GERD (gastroesophageal reflux disease) Gout Hx of hiatal hernia Hyperlipidemia Hypertension Lumbar radiculopathy Mild cognitive disorder Osteoarthritis Surgical History History of carpal tunnel release History of colonoscopy History of total right knee replacement History of ventral hernia repair History of wisdom tooth extraction S/P cholecystectomy Family History Mother Myocardial infarction Father Lung cancer Denies family history of Ovarian cancer Prostate cancer Breast cancer Colorectal cancer Social History Smoking Status: Unknown if ever smoked Second Hand Exposure: No; Hx Alcohol Use: Yes Alcohol type: beer Alcohol Intake Frequency Comment: 2 beer A WEEK Hx Substance Use: No Preferred Language: Mac[place] Communication Ability: Effective Visual Impairment: Diminished Hearing Ability: Normal Property Claims Adjuster Required: No Beliefs That Will Affect Care: None marital status: Current Living Situation: Spouse current occupational status: retired How many Children do You have: 0 How many Children do You have Comment: none Feels Safe at Home: Yes Childhood Exposure to Second-Hand Smoke: No caffeine: Yes (drinks coffee ) Dental Care, Regularly: Yes Physical Activity Frequency: 1-2 Times per Week Physical Activity Frequency Comment: sometimes 3 times a week Seatbelt Use: always Sunscreen Use: Yes Assistive Devices: Walker Allergies Allergies Allergy/AdvReac Type Severity Reaction Status Date / Time Penicillins Allergy Intermediate RASH Verified 05/24/22 18:03 clindamycin Allergy Unknown Rash Verified 05/24/22 18:03 shellfish derived Allergy Unknown Rash-WITH Verified 05/24/22 18:03 SHELLFISH oxycodone AdvReac Intermediate confusion Verified 05/24/22 18:03 Home Meds Home Medications Medication Instructions Recorded Confirmed allopurinol 300 mg tablet 300 mg PO QAM 10/30/21 05/24/22 atorvastatin 40 mg tablet 40 mg PO QAM 10/30/21 05/24/22 famotidine 20 mg tablet 20 mg PO QAM PRN Acid Reflux 10/30/21 05/24/22 lisinopril 40 mg tablet 40 mg PO QAM 10/30/21 05/24/22 pantoprazole 40 mg tablet,delayed 40 mg PO QAM 10/30/21 05/24/22 release aspirin 81 mg tablet,delayed See Rx Instructions .Route 04/16/22 05/24/22 release .COMPLEX PRN .prevent blood clots Previous Rx's Medication Instructions Recorded nirmatrelvir 300 mg (150 mg x See Rx Instructions PO .COMPLEX 05/24/22 2)-ritonavir 100 mg tablet (EUA) #30 tabs (Paxlovid 300 mg () Results & Data (ED) Vital Signs Vital Signs - 24 hr 05/24/22 14:58 05/24/22 15:03 05/24/22 15:49 Temperature 36.6 C Temperature Source Oral Pulse Rate 90 Pulse Rate [Apical] 90 Respiratory Rate 20 18 Respiratory Effort / Characteristics Non-Labored Spontaneous Non-Labored Respiratory Depth Normal Blood Pressure 143/78 H Blood Pressure [Right Arm] 135/62 Blood Pressure Mean 99 Blood Pressure Mean [Right Arm] 86 Blood Pressure Position Lying Blood Pressure Position [Right Arm] Lying Pulse Oximetry 100 99 100 Oxygen Delivery Method Room Air Room Air Room Air Sepsis Recent Fever Within 48 Hours No Sepsis New/Unexplained Change in Mental Status No Sepsis Action Taken by Nursing No Action Required 05/24/22 16:52 05/24/22 17:56 05/24/22 19:00 Temperature Temperature Source Pulse Rate Pulse Rate [Apical] 89 85 108 H Respiratory Rate 20 20 18 Respiratory Effort / Characteristics Non-Labored Spontaneous Respiratory Depth Normal Normal Normal Blood Pressure Blood Pressure [Right Arm] 129/66 142/58 H Blood Pressure Mean Blood Pressure Mean [Right Arm] 87 86 Blood Pressure Position Blood Pressure Position [Right Arm] Lying Lying Pulse Oximetry 97 98 98 Oxygen Delivery Method Room Air Room Air Room Air Sepsis Recent Fever Within 48 Hours Sepsis New/Unexplained Change in Mental Status Sepsis Action Taken by Nursing Laboratory Data Result diagrams: 05/24/22 14:50 05/24/22 14:50 Lab Results 05/24/22 05/24/22 05/24/22 Range/Units 14:50 14:50 14:50 WBC 9.23 (4.8-10.8) K/ul RBC 4.38 L (4.63-6.08) M/uL Hgb 13.0 L (14.0-18.0) g/dl Hct 38.4 L (40.1-51.0) % MCV 87.7 (80.0-100.0) fL MCH 29.7 (25.0-34.0) pg MCHC 33.9 (32.0-36.0) g/dL RDW Std Deviation 44.2 (36.4-46.3) fL RDW Coeff of Andi 13.6 (11.5-14.5) % Plt Count 358 (130-400) K/uL MPV 10.5 (9.4-12.4) fL Immature Gran % (Auto) 0.5 % Neut % (Auto) 72.3 % Lymph % (Auto) 15.6 % [place] % (Auto) 10.2 % Eos % (Auto) 1.1 % Baso % (Auto) 0.3 % Neut # (Auto) 6.67 H (1.4-6.5) K/uL Lymph # (Auto) 1.44 (1.2-3.4) K/uL [place] # (Auto) 0.94 H (0.24-0.82) K/uL Eos # (Auto) 0.10 (0-0.50) K/uL Baso # (Auto) 0.03 (0-0.2) K/uL Immature Gran # (Auto) 0.05 H (0.00-0.02) K/uL PT 11.9 (9.0-12.0) Seconds INR 1.1 (0.9-1.1) Sodium 134 L (136-145) mmol/L Potassium 4.4 (3.5-5.1) mmol/L Chloride 99 (98-107) mmol/L Carbon Dioxide 20 L (21-32) mmol/L Anion Gap 15 H (3-11) BUN 57 H (6-23) mg/dl Creatinine 2.22 H (0.6-1.4) mg/dl Est Cr Clr Drug Dosing 26.5 ml/min Est GFR ( Amer) 31.7 ml/min Est GFR (Non-Af Amer) 27.4 ml/min BUN/Creatinine Ratio 25.7 H (10-20) Glucose 88 (70-99(Fasting)) mg/dl Calcium 9.8 (8.5-10.1) mg/dl Magnesium 2.0 (1.7-2.4) mg/dl Total Bilirubin 0.9 (0.2-1.0) mg/dl AST 24 (13-39) U/L ALT 11 (7-52) U/L Alkaline Phosphatase 103 (34-104) U/L Troponin I High Sens 14.8 (0-20) pg/ml Total Protein 7.9 (6.0-8.3) gm/dl Albumin 3.9 (3.4-5.0) gm/dl Globulin 4.0 (2.5-4.0) gm/dl Albumin/Globulin Ratio 1.0 (0.9-2) Procalcitonin (0-0.5) ng/ml TSH (0.300-4.500) uIu/ml Urine Color Urine Appearance (Clear) Urine pH (4.5-7.5) Ur Specific [place] (1.000-1.030) Urine Protein (Negative) Urine Glucose (UA) (Negative) Urine Ketones (Negative) Urine Blood (Negative) Urine Nitrite (Negative) Urine Bilirubin (Negative) Urine Urobilinogen (Negative) Ur Leukocyte Esterase (Negative) SARS-CoV-2, RNA, NAAT (NEGATIVE) 05/24/22 05/24/22 05/24/22 Range/Units 14:50 14:50 17:19 WBC (4.8-10.8) K/ul RBC (4.63-6.08) M/uL Hgb (14.0-18.0) g/dl Hct (40.1-51.0) % MCV (80.0-100.0) fL MCH (25.0-34.0) pg MCHC (32.0-36.0) g/dL RDW Std Deviation (36.4-46.3) fL RDW Coeff of Andi (11.5-14.5) % Plt Count (130-400) K/uL MPV (9.4-12.4) fL Immature Gran % (Auto) % Neut % (Auto) % Lymph % (Auto) % [place] % (Auto) % Eos % (Auto) % Baso % (Auto) % Neut # (Auto) (1.4-6.5) K/uL Lymph # (Auto) (1.2-3.4) K/uL [place] # (Auto) (0.24-0.82) K/uL Eos # (Auto) (0-0.50) K/uL Baso # (Auto) (0-0.2) K/uL Immature Gran # (Auto) (0.00-0.02) K/uL PT (9.0-12.0) Seconds INR (0.9-1.1) Sodium (136-145) mmol/L Potassium (3.5-5.1) mmol/L Chloride (98-107) mmol/L Carbon Dioxide (21-32) mmol/L Anion Gap (3-11) BUN (6-23) mg/dl Creatinine (0.6-1.4) mg/dl Est Cr Clr Drug Dosing ml/min Est GFR ( Amer) ml/min Est GFR (Non-Af Amer) ml/min BUN/Creatinine Ratio (10-20) Glucose (70-99(Fasting)) mg/dl Calcium (8.5-10.1) mg/dl Magnesium (1.7-2.4) mg/dl Total Bilirubin (0.2-1.0) mg/dl AST (13-39) U/L ALT (7-52) U/L Alkaline Phosphatase (34-104) U/L Troponin I High Sens (0-20) pg/ml Total Protein (6.0-8.3) gm/dl Albumin (3.4-5.0) gm/dl Globulin (2.5-4.0) gm/dl Albumin/Globulin Ratio (0.9-2) Procalcitonin < 0.05 (0-0.5) ng/ml TSH 1.859 (0.300-4.500) uIu/ml Urine Color Yellow Urine Appearance Clear (Clear) Urine pH 5.5 (4.5-7.5) Ur Specific [place] 1.010 (1.000-1.030) Urine Protein Negative (Negative) Urine Glucose (UA) Negative (Negative) Urine Ketones 1+ H (Negative) Urine Blood Negative (Negative) Urine Nitrite Negative (Negative) Urine Bilirubin Negative (Negative) Urine Urobilinogen Negative (Negative) Ur Leukocyte Esterase Negative (Negative) SARS-CoV-2, RNA, NAAT (NEGATIVE) 05/24/22 Range/Units 17:46 WBC (4.8-10.8) K/ul RBC (4.63-6.08) M/uL Hgb (14.0-18.0) g/dl Hct (40.1-51.0) % MCV (80.0-100.0) fL MCH (25.0-34.0) pg MCHC (32.0-36.0) g/dL RDW Std Deviation (36.4-46.3) fL RDW Coeff of Andi (11.5-14.5) % Plt Count (130-400) K/uL MPV (9.4-12.4) fL Immature Gran % (Auto) % Neut % (Auto) % Lymph % (Auto) % [place] % (Auto) % Eos % (Auto) % Baso % (Auto) % Neut # (Auto) (1.4-6.5) K/uL Lymph # (Auto) (1.2-3.4) K/uL [place] # (Auto) (0.24-0.82) K/uL Eos # (Auto) (0-0.50) K/uL Baso # (Auto) (0-0.2) K/uL Immature Gran # (Auto) (0.00-0.02) K/uL PT (9.0-12.0) Seconds INR (0.9-1.1) Sodium (136-145) mmol/L Potassium (3.5-5.1) mmol/L Chloride (98-107) mmol/L Carbon Dioxide (21-32) mmol/L Anion Gap (3-11) BUN (6-23) mg/dl Creatinine (0.6-1.4) mg/dl Est Cr Clr Drug Dosing ml/min Est GFR ( Amer) ml/min Est GFR (Non-Af Amer) ml/min BUN/Creatinine Ratio (10-20) Glucose (70-99(Fasting)) mg/dl Calcium (8.5-10.1) mg/dl Magnesium (1.7-2.4) mg/dl Total Bilirubin (0.2-1.0) mg/dl AST (13-39) U/L ALT (7-52) U/L Alkaline Phosphatase (34-104) U/L Troponin I High Sens (0-20) pg/ml Total Protein (6.0-8.3) gm/dl Albumin (3.4-5.0) gm/dl Globulin (2.5-4.0) gm/dl Albumin/Globulin Ratio (0.9-2) Procalcitonin (0-0.5) ng/ml TSH (0.300-4.500) uIu/ml Urine Color Urine Appearance (Clear) Urine pH (4.5-7.5) Ur Specific [place] (1.000-1.030) Urine Protein (Negative) Urine Glucose (UA) (Negative) Urine Ketones (Negative) Urine Blood (Negative) Urine Nitrite (Negative) Urine Bilirubin (Negative) Urine Urobilinogen (Negative) Ur Leukocyte Esterase (Negative) SARS-CoV-2, RNA, NAAT POSITIVE A* (NEGATIVE) Administered Medications Discontinued Medications Sodium Chloride (Nss) 500 mls @ 999 mls/hr IV .Q31M ALEJANDRO Stop: 05/24/22 15:45 Last Infusion: 05/24/22 16:30 Dose: 0 mls/hr Documented By: Admin: 05/24/22 15:47 Dose: 999 mls/hr Documented By: ROC Ceftriaxone Sodium (Rocephin) 2,000 mg in 70 mls @ 140 mls/hr IV NOW STA Stop: 05/24/22 17:04 Last Infusion: 05/24/22 17:24 Dose: 0 mls/hr Documented By: Admin: 05/24/22 16:52 Dose: 140 mls/hr Documented By: ROC Azithromycin 500 mg/ Dextrose 255 mls @ 125 mls/hr IV ONE ONE Stop: 05/24/22 18:37 Last Admin: 05/24/22 17:40 Dose: 125 mls/hr Documented By: ROC Imaging Data Radiologist's Impression: Chest X-Ray 05/24/22 15:02 XR chest 1V portable CLINICAL HISTORY: weakness TECHNIQUE: Single frontal radiograph of the chest was obtained. Comparison: Comparison is made to chest radiograph 11/14/2021 FINDINGS: No lines and tubes are seen. The cardiomediastinal silhouette is normal. Trace atelectasis at the left lung base. No evidence of pleural effusion or pneumothorax. IMPRESSION: No acute chest disease. ACT 112: Negative or not required by law. Electronically signed by: Germain Chairez M.D. 05/24/2022 4:[address] 05/24/22 15:02 CT head/brain wo con CLINICAL HISTORY: ams Technique: Contiguous axial CT images of the head were acquired from the base of the skull to the vertex without intravenous contrast administration. Images were viewed in brain, subdural and bone windows. Automated dose lowering techniques and/or adjustment according to patient size were utilized for this exam. Comparison: Comparison is made to CT head 03/09/2022 Findings: Areas of decreased attenuation are present in the periventricular and subcortical white matter bilaterally consistent with small vessel ischemic disease. Generalized cerebral atrophy with commensurate enlargement of the ventricles, sulci, and cisterns is also present. There is no acute intracranial hemorrhage or evidence of acute territorial infarction. No shift of the midline structures, mass effect, or extra-axial abnormalities are shown. Atherosclerotic calcifications are present in the intracranial segments of the internal carotid arteries. Imaged portions of the paranasal sinuses and mastoid air cells are clear. The orbits appear normal. There are no acute fractures of the calvaria or scalp swelling. Impression: No acute intracranial hemorrhage, no evidence of acute territorial infarction or other acute intracranial disease process. ACT 112: Negative or not required by law. Electronically signed by: Germain Chairez M.D. 05/24/2022 3:53 PM Abdomen/Pelvis CT 05/24/22 15:07 CT SCAN OF THE ABDOMEN AND PELVIS WITHOUT IV CONTRAST CLINICAL HISTORY: Change in mental status. COMPARISON STUDY: Abdominal CT dated 05/04/2015. TECHNIQUE: CT scan of the abdomen and pelvis is performed from the lung bases to the proximal femora. Images are reviewed in the axial, sagittal, and coronal planes. IV contrast was not administered for this examination. Note that the examination was performed in significantly suboptimal fashion without oral and IV contrast. There is also significant motion artifact, as well as streak artifact from the arms which could not be elevated above the abdomen. A dose lowering technique was utilized adhering to the principles of ALARA. CT DOSE: 3639.13 mGy.cm FINDINGS: Lung bases: The heart is top normal in size and without pericardial effusion. The coronary arteries and aortic valve leaflets are densely calcified. Patchy airspace consolidation is present at both lung bases, left greater than right. Liver: The unenhanced liver is normal in size, contour, and attenuation. There is no intrahepatic biliary ductal dilatation. Gallbladder: Surgically absent noting clips in the gallbladder fossa. Spleen: Normal in size and attenuation. Pancreas: The unenhanced pancreas is moderately atrophic and grossly unremarkable. Adrenal glands: Unremarkable. Kidneys: The unenhanced kidneys demonstrate cortical atrophy and are without hydronephrosis. There are no renal calculi identified. There is no evidence of contour deforming renal mass lesion. Abdominal vasculature: The abdominal aorta is normal in course and caliber noting advanced atherosclerotic calcification. Bowel: There is no bowel obstruction. The appendix is normal as visualized. Peritoneum: There is no intraperitoneal free air or abdominal ascites. Lymphadenopathy: None. Pelvic viscera: The prostate gland is mildly enlarged and heterogeneous. The bladder wall appears thickened and trabeculated indicating chronic outlet reduction. Skeletal structures: The skeletal structures are osteopenic. There is moderate to advanced lumbosacral spondylosis. Degenerative change is also noted in the hi ps and sacroiliac joints. No lytic or blastic lesions are seen. IMPRESSION: 1. Significantly suboptimal examination without oral and IV contrast. There is also streak and motion artifact. 2. Patchy bibasilar airspace consolidation is typical for pneumonia. Clinical correlation will be required and radiographic follow-up to resolution is recommended. 3. No acute infectious or inflammatory findings are identified in the abdomen or pelvis. 4. Additional findings as above. ACT 112: Negative or not required by law. Electronically signed by: Wild Vega M.D. 05/24/2022 3:54 PM Discharge Plan Visit Data Chief Complaint: Altered Mental Status ED Provider: Yunior Rinaldi Discharge Problem: Pneumonia, GATO (acute kidney injury), Altered mental status Forms Stand Alone Forms: [facility] Prescriptions Prescriptions: New Paxlovid (EUA) 300 mg (150 mg x 2)-100 mg tablet See Rx Instructions .ROUTE .COMPLEX Qty: 30 0RF Rx Instructions: take TWO 150 mg tablets of nirmatrelvir with ONE 100 mg tablet of ritonavir twice daily for 5 days No Action aspirin 81 mg tablet,delayed release (DR/EC) See Rx Instructions .ROUTE .COMPLEX PRN (Reason: .prevent blood clots) Dose Instruction: take 1 tablet by mouth twice a day TO PREVENT BLOOD CLOTS Rx Instructions: take 1 tablet by mouth twice a day TO PREVENT BLOOD CLOTS PRN; atorvastatin 40 mg tablet 40 mg PO QAM famotidine 20 mg tablet 20 mg PO QAM PRN (Reason: Acid Reflux) pantoprazole 40 mg tablet,delayed release (DR/EC) 40 mg PO QAM allopurinol 300 mg tablet 300 mg PO QAM lisinopril 40 mg tablet 40 mg PO QAM Referrals Referrals: Carlito Wynn DO [Primary Care Provider] -
[2022-05-24] MEDS ORDERED: SODIUM CHLORIDE 0.9% 500 ML IV SCH (15:15)
[2022-05-24 15:28] LABS: Basophils # (auto) 0.03 K/uL (0-0.2); Basophils % (auto) 0.3 %; Eosinophils % (auto) 1.1 %; Hematocrit (blood only) 38.4 % (40.1-51.0); Immature Granulocytes # (auto) 0.05 K/uL (0.00-0.02); Immature Granulocytes % (auto) 0.5 %; Lymphocytes # (auto) 1.44 K/uL (1.2-3.4); Lymphocytes % (auto) 15.6 %; Mean Corpuscular Hemoglobin 29.7 pg (25.0-34.0); Mean Corpuscular Hgb Conc 33.9 g/dL (32.0-36.0); Mean Corpuscular Volume 87.7 fL (80.0-100.0); Mean Platelet Volume 10.5 fL (9.4-12.4); Monocytes # (auto) 0.94 K/uL (0.24-0.82); Monocytes % (auto) 10.2 %; Neutrophils # (auto) 6.67 K/uL (1.4-6.5); Neutrophils % (auto) 72.3 %; Platelet Count 358 K/uL (130-400); RDW Coefficient of Variation 13.6 % (11.5-14.5); RDW Standard Deviation 44.2 fL (36.4-46.3); Red Blood Count 4.38 M/uL (4.63-6.08); White Blood Count 9.23 K/ul (4.8-10.8)
[2022-05-24 15:39] LABS: INR 1.1 (0.9-1.1); Prothrombin Time 11.9 Seconds (9.0-12.0)
[2022-05-24 15:49] LABS: Albumin Level 3.9 gm/dl (3.4-5.0); BUN Creatinine Ratio 25.7 (10-20); Bilirubin,Total 0.9 mg/dl (0.2-1.0); Calcium 9.8 mg/dl (8.5-10.1); Creatinine Clr Calc Pharmacy 26.5 ml/min; Est GFR (African American) 31.7 ml/min; Est GFR (Non-African American) 27.4 ml/min; Potassium 4.4 mmol/L (3.5-5.1); Total Protein 7.9 gm/dl (6.0-8.3)
[2022-05-24 15:53] LABS: Troponin I High Sensitivity 14.8 pg/ml (0-20)
--- NOTE | 2022-05-24 15:55 | CT Scan Report ---
CT SCAN OF THE ABDOMEN AND PELVIS WITHOUT IV CONTRAST CLINICAL HISTORY: Change in mental status. COMPARISON STUDY: Abdominal CT dated 05/04/2015. TECHNIQUE: CT scan of the abdomen and pelvis is performed from the lung bases to the proximal femora. Images are reviewed in the axial, sagittal, and coronal planes. IV contrast was not administered for this examination. Note that the examination was performed in significantly suboptimal fashion withou t oral and IV contrast. There is also significant motion artifact, as well as streak artifact from th e arms which could not be elevated above the abdomen. A dose lowering technique was utilized adhering to the principles of ALARA. CT DOSE: 3639.13 mGy.cm FINDINGS: Lung bases: The heart is top normal in size and without pericardial effusion. The coronary arteries a nd aortic valve leaflets are densely calcified. Patchy airspace consolidation is present at both lung bases, left greater than right. Liver: The unenhanced liver is normal in size, contour, and attenuation. There is no intrahepatic víctor iary ductal dilatation. Gallbladder: Surgically absent noting clips in the gallbladder fossa. Spleen: Normal in size and attenuation. Pancreas: The unenhanced pancreas is moderately atrophic and grossly unremarkable. Adrenal glands: Unremarkable. Kidneys: The unenhanced kidneys demonstrate cortical atrophy and are without hydronephrosis. There ar e no renal calculi identified. There is no evidence of contour deforming renal mass lesion. Abdominal vasculature: The abdominal aorta is normal in course and caliber noting advanced atheroscle rotic calcification. Bowel: There is no bowel obstruction. The appendix is normal as visualized. Peritoneum: There is no intraperitoneal free air or abdominal ascites. Lymphadenopathy: None. Pelvic viscera: The prostate gland is mildly enlarged and heterogeneous. The bladder wall appears thi ckened and trabeculated indicating chronic outlet reduction. Skeletal structures: The skeletal structures are osteopenic. There is moderate to advanced lumbosacra l spondylosis. Degenerative change is also noted in the hips and sacroiliac joints. No lytic or blast ic lesions are seen. IMPRESSION: 1. Significantly suboptimal examination without oral and IV contrast. There is also streak and motion artifact. 2. Patchy bibasilar airspace consolidation is typical for pneumonia. Clinical correlation will be req uired and radiographic follow-up to resolution is recommended. 3. No acute infectious or inflammatory findings are identified in the abdomen or pelvis. 4. Additional findings as above. ACT 112: Negative or not required by law. Electronically signed by: Wild Vega M.D. 05/24/2022 3:54 PM
--- NOTE | 2022-05-24 15:55 | CT Scan Report ---
CT head/brain wo con CLINICAL HISTORY: ams Technique: Contiguous axial CT images of the head were acquired from the base of the skull to the jeffrey chloe without intravenous contrast administration. Images were viewed in brain, subdural and [facility]. Automated dose lowering techniques and/or adjustment according to patient size were utilized for this exam. Comparison: Comparison is made to CT head 03/09/2022 Findings: Areas of decreased attenuation are present in the periventricular and subcortical white matter bilate rally consistent with small vessel ischemic disease. Generalized cerebral atrophy with commensurate e nlargement of the ventricles, sulci, and cisterns is also present. There is no acute intracranial hem orrhage or evidence of acute territorial infarction. No shift of the midline structures, mass effect, or extra-axial abnormalities are shown. Atherosclerotic calcifications are present in the intracran ial segments of the internal carotid arteries. Imaged portions of the paranasal sinuses and mastoid air cells are clear. The orbits appear normal. There are no acute fractures of the calvaria or scalp swelling. Impression: No acute intracranial hemorrhage, no evidence of acute territorial infarction or other acute intracra nial disease process. ACT 112: Negative or not required by law. Electronically signed by: Germain Chairez M.D. 05/24/2022 3:53 PM
[2022-05-24] MEDS ORDERED: AZITHROMYCIN 500 MG in DEXTROSE 5% 250 ML IV ONE (16:35)
[2022-05-24] MEDS ORDERED: cefTRIAXone SODIUM 2,000 MG/70 ML BAG IV STA (16:35)
--- NOTE | 2022-05-24 16:45 | XRay Report ---
XR chest 1V portable CLINICAL HISTORY: weakness TECHNIQUE: Single frontal radiograph of the chest was obtained. Comparison: Comparison is made to chest radiograph 11/14/2021 FINDINGS: No lines and tubes are seen. The cardiomediastinal silhouette is normal. Trace atelectasis at the lef t lung base. No evidence of pleural effusion or pneumothorax. IMPRESSION: No acute chest disease. ACT 112: Negative or not required by law. Electronically signed by: Germain Chairez M.D. 05/24/2022 4:44 PM
[2022-05-24 17:35] LABS: Appearance Urine Clear (Clear); Bilirubin Urine Negative (Negative); Blood Urine Negative (Negative); Color Urine Yellow; Glucose Urine UA Negative (Negative); Ketones Urine 1+ (Negative); Leukocyte Esterase Urine Negative (Negative); Nitrite Urine Negative (Negative); Protein Urine Negative (Negative); Urobilinogen Urine Negative (Negative); pH Urine 5.5 (4.5-7.5)
--- NOTE | 2022-05-24 17:53 | History & Physical Report ---
Date of Service May 24, 2022 Assessment & Plan (1) COVID: Plan: Vaccinated and Boosted. August 20/2021 - Moderna x3 COVID isolation precautions O2 sats 98% on room air on admission. No need for dexamethasone or remdesivir. Within 5 days of symptom - to picker and sorter load and unload Paxlovid at outpatient pharmacy and bring back to administer as patient had medication. May have to be delayed to do current renal function but suspect that will improve overnight with intravenous fluids as dehydrated on exam. Mainly causing fatigue and reduced appetite (2) GATO (acute kidney injury): Plan: Stop lisinopril IV fluids Repeat BMP in AM (3) Vitamin B12 deficiency: Plan: Cyanocobalamin 500 mcg PO daily (4) GERD (gastroesophageal reflux disease): Plan: Continue pantoprazole 40mg PO daily (5) Gout: Plan: Continue allopurinol 300mg PO daily (6) Hypertension: Plan: Hold lisinopril due to GATO (7) Hyperlipidemia: Plan: Discontinue atorvastatin due to Paxlovid use Plan VTE Prophylaxis - Heparin 5000 units SQ BID Diet - regular Disposition - admit to med/surg, COVID isolation Admission and Anticipated Discharge Date Admission Date: May 24, 2022 History of Present Illness Chief Complaint: Fatigue, generalized weakness Primary Care Provider: Carlito Wynn DO Francisco Guzman is a 77 year old male who presents to the ER with generalized weakness, fatigue and loss of appetite. Patient seen with his as patient is confused and unable to give reliable history, he has mild ongoing dementia in addition. His reports not sleeping well, fatigue, generalized weakness, decreased appetite, mild increased confusion and cough since Saturday. No known COVID exposure. No sore throat, shortness of breath, chest pain, abdominal pain or diarrhea. He started having rigors this afternoon therefore his called their family physician and on hold for a long time therefore she ended up calling [phone]. In the ER initially diagnosed with pneumonia and GATO and treated with IV fluids, ceftriaxone and azithromycin. Creatinine 2.22 from baseline 1.19. He was referred to medicine for admission and ongoing management of GATO and pneumonia prior to SARS-COV-2 PCR result which was subsequently positive. His reports he is vaccinated x2 with one booster in August 2021 (all Moderna). Allergies Allergy/AdvReac Type Severity Reaction Status Date / Time Penicillins Allergy Intermediate RASH Verified 05/24/22 18:03 clindamycin Allergy Unknown Rash Verified 05/24/22 18:03 shellfish derived Allergy Unknown Rash-WITH Verified 05/24/22 18:03 SHELLFISH oxycodone AdvReac Intermediate confusion Verified 05/24/22 18:03 Home Medications Medication Instructions Recorded Confirmed Type allopurinol 300 mg tablet 300 mg PO QAM 10/30/21 05/24/22 History atorvastatin 40 mg tablet 40 mg PO QAM 10/30/21 05/24/22 History famotidine 20 mg tablet 20 mg PO QAM PRN Acid Reflux 10/30/21 05/24/22 History lisinopril 40 mg tablet 40 mg PO QAM 10/30/21 05/24/22 History pantoprazole 40 mg tablet,delayed 40 mg PO QAM 10/30/21 05/24/22 History release aspirin 81 mg tablet,delayed See Rx Instructions .Route 04/16/22 05/24/22 History release .COMPLEX PRN .prevent blood clots nirmatrelvir 300 mg (150 mg x See Rx Instructions PO .COMPLEX 05/24/22 Rx 2)-ritonavir 100 mg tablet (EUA) #30 tabs (Paxlovid 300 mg () Past Med/Surg History Medical History Cellulitis Chronic kidney disease GERD (gastroesophageal reflux disease) Gout Hx of hiatal hernia Hyperlipidemia Hypertension Lumbar radiculopathy Mild cognitive disorder Osteoarthritis Surgical History History of carpal tunnel release History of colonoscopy History of total right knee replacement History of ventral hernia repair History of wisdom tooth extraction S/P cholecystectomy Family History Mother Myocardial infarction Father Lung cancer Denies family history of Ovarian cancer Prostate cancer Breast cancer Colorectal cancer Social History Smoking Status: Unknown if ever smoked Second Hand Exposure: No; Do You Dip or Chew Tobacco: No; Tobacco Cessation Education Requested by Patient: No Hx Alcohol Use: No Hx Substance Use: No Preferred Language: Chadian Communication Ability: confused Communication Ability Comment: confused Visual Impairment: Diminished Hearing Ability: Normal Youth Teacher Required: No Beliefs That Will Affect Care: None marital status: Current Living Situation: Spouse current occupational status: retired How many Children do You have: 0 How many Children do You have Comment: none Feels Safe at Home: Yes Safety Concerns: Feels Safe At This Time Childhood Exposure to Second-Hand Smoke: No caffeine: Yes (drinks coffee ) Dental Care, Regularly: Yes Physical Activity Frequency: 1-2 Times per Week Physical Activity Frequency Comment: sometimes 3 times a week Seatbelt Use: always Sunscreen Use: Yes Assistive Devices: Walker Review of Systems Review of Systems: All systems reviewed & are unremarkable except as noted in HPI & below Chronic neck and back pain but nothing new. Physical Exam Constitutional: WD/WN, vitals as above + frail appearing Eyes: PERRL, conjunctivae normal, anicteric sclerae ENMT: external ear and nose normal, oropharynx normal Mouth: + dry oral mucous membranes Neck: trachea midline, no thyromegaly Respiratory: normal respiratory effort Cardiovascular: RRR, no murmur, no edema Gastrointestinal (Abdomen): normal bowel sounds, soft, nontender, no hepatosplenomegaly Musculoskeletal: no cyanosis or clubbing, extremities motor strength 5/5 Skin: no rashes, warm and dry Neurologic: moves all extremities and awake; not confused Psychiatric: A+Ox3, euthymic affect Genitourinary: no CVA tenderness Results & Data Results & Data ([facility]) Vital Signs (Past 12 Hours) Vital Signs Temp Pulse Pulse Resp BP BP Pulse Ox 05/24/22 16:52 89 20 129/66 97 05/24/22 15:49 90 18 135/62 100 05/24/22 15:03 99 05/24/22 14:58 36.6 C 90 20 143/78 H 100 O2 Del Method 05/24/22 16:52 Room Air 05/24/22 15:49 Room Air 05/24/22 15:03 Room Air 05/24/22 14:58 Room Air Laboratory Results Abnormal lab results 05/24/22 05/24/22 05/24/22 Range/Units 14:50 14:50 17:19 RBC 4.38 L (4.63-6.08) M/uL Hgb 13.0 L (14.0-18.0) g/dl Hct 38.4 L (40.1-51.0) % Neut # (Auto) 6.67 H (1.4-6.5) K/uL Sampson # (Auto) 0.94 H (0.24-0.82) K/uL Immature Gran # (Auto) 0.05 H (0.00-0.02) K/uL Sodium 134 L (136-145) mmol/L Carbon Dioxide 20 L (21-32) mmol/L Anion Gap 15 H (3-11) BUN 57 H (6-23) mg/dl Creatinine 2.22 H (0.6-1.4) mg/dl BUN/Creatinine Ratio 25.7 H (10-20) Urine Ketones 1+ H (Negative) SARS-CoV-2, RNA, NAAT (NEGATIVE) 05/24/22 Range/Units 17:46 RBC (4.63-6.08) M/uL Hgb (14.0-18.0) g/dl Hct (40.1-51.0) % Neut # (Auto) (1.4-6.5) K/uL Sampson # (Auto) (0.24-0.82) K/uL Immature Gran # (Auto) (0.00-0.02) K/uL Sodium (136-145) mmol/L Carbon Dioxide (21-32) mmol/L Anion Gap (3-11) BUN (6-23) mg/dl Creatinine (0.6-1.4) mg/dl BUN/Creatinine Ratio (10-20) Urine Ketones (Negative) SARS-CoV-2, RNA, NAAT POSITIVE A* (NEGATIVE) Diagnostic Findings CT head/brain wo con CLINICAL HISTORY: ams Technique: Contiguous axial CT images of the head were acquired from the base of the skull to the vertex without intravenous contrast administration. Images were viewed in brain, subdural and bone windows. Automated dose lowering techniques and/or adjustment according to patient size were utilized for this exam. Comparison: Comparison is made to CT head 03/09/2022 Findings: Areas of decreased attenuation are present in the periventricular and subcortical white matter bilaterally consistent with small vessel ischemic disease. Generalized cerebral atrophy with commensurate enlargement of the ventricles, sulci, and cisterns is also present. There is no acute intracranial hemorrhage or evidence of acute territorial infarction. No shift of the midline structures, mass effect, or extra-axial abnormalities are shown. Atherosclerotic calcifications are present in the intracranial segments of the internal carotid arteries. Imaged portions of the paranasal sinuses and mastoid air cells are clear. The orbits appear normal. There are no acute fractures of the calvaria or scalp swelling. Impression: No acute intracranial hemorrhage, no evidence of acute territorial infarction or other acute intracranial disease process. XR chest 1V portable CLINICAL HISTORY: weakness TECHNIQUE: Single frontal radiograph of the chest was obtained. Comparison: Comparison is made to chest radiograph 11/14/2021 FINDINGS: No lines and tubes are seen. The cardiomediastinal silhouette is normal. Trace atelectasis at the left lung base. No evidence of pleural effusion or pneumothorax. IMPRESSION: No acute chest disease. CT SCAN OF THE ABDOMEN AND PELVIS WITHOUT IV CONTRAST CLINICAL HISTORY: Change in mental status. COMPARISON STUDY: Abdominal CT dated 05/04/2015. TECHNIQUE: CT scan of the abdomen and pelvis is performed from the lung bases to the proximal femora. Images are reviewed in the axial, sagittal, and coronal planes. IV contrast was not administered for this examination. Note that the examination was performed in significantly suboptimal fashion without oral and IV contrast. There is also significant motion artifact, as well as streak artifact from the arms which could not be elevated above the abdomen. A dose lowering technique was utilized adhering to the principles of ALARA. CT DOSE: 3639.13 mGy.cm FINDINGS: Lung bases: The heart is top normal in size and without pericardial effusion. The coronary arteries and aortic valve leaflets are densely calcified. Patchy a irspace consolidation is present at both lung bases, left greater than right. Liver: The unenhanced liver is normal in size, contour, and attenuation. There is no intrahepatic biliary ductal dilatation. Gallbladder: Surgically absent noting clips in the gallbladder fossa. Spleen: Normal in size and attenuation. Pancreas: The unenhanced pancreas is moderately atrophic and grossly unremarkable. Adrenal glands: Unremarkable. Kidneys: The unenhanced kidneys demonstrate cortical atrophy and are without hydronephrosis. There are no renal calculi identified. There is no evidence of contour deforming renal mass lesion. Abdominal vasculature: The abdominal aorta is normal in course and caliber noting advanced atherosclerotic calcification. Bowel: There is no bowel obstruction. The appendix is normal as visualized. Peritoneum: There is no intraperitoneal free air or abdominal ascites. Lymphadenopathy: None. Pelvic viscera: The prostate gland is mildly enlarged and heterogeneous. The bladder wall appears thickened and trabeculated indicating chronic outlet reduction. Skeletal structures: The skeletal structures are osteopenic. There is moderate to advanced lumbosacral spondylosis. Degenerative change is also noted in the hips and sacroiliac joints. No lytic or blastic lesions are seen. IMPRESSION: 1. Significantly suboptimal examination without oral and IV contrast. There is also streak and motion artifact. 2. Patchy bibasilar airspace consolidation is typical for pneumonia. Clinical correlation will be required and radiographic follow-up to resolution is recommended. 3. No acute infectious or inflammatory findings are identified in the abdomen or pelvis. 4. Additional findings as above. Medications Administered ER medications given: NSS 500 mL bolus Ceftriaxone 2 g IV Azithromycin 500 mg IV ECG Indication: chest pain Rate (beats per minute): 84 Rhythm: normal sinus Findings: + LBBB Comparison ECG Date: from (March 09, 2022) Change: no significant change Code Status & VTE Plan Code Status Full VTE Prophylaxis Plan VTE Prophylaxis will be ordered: Yes PG Care Time/CCT Total # of Minutes Spent Total Time Spent with Patient: Total time spent is greater than 50% in coordination of care (as documented) at patient's floor/unit and/or counseling patient: Coding Level of Care Code 71549 Initial Inpt Care Lvl 2 Diagnoses COVID U07.1 GATO (acute kidney injury) N17.9 Vitamin B12 deficiency E53.8 GERD (gastroesophageal reflux disease) K21.9 Gout M10.9 Hypertension I10 Hypertension type: primary hypertension Hyperlipidemia E78.5 (1) Hypertension Hypertension type: primary hypertension Qualified Code(s): I10 - Essential (primary) hypertension
[2022-05-24] MEDS ORDERED: POLYETHYLENE (MIRALAX) 17 GM PACK PO PRN (21:51)
[2022-05-24] MEDS ORDERED: ACETAMINOPHEN 325 MG TAB PO PRN (21:51)
[2022-05-24] MEDS: HEPARIN SOD 5,000 UNIT/0.5 ML VIAL SQ SCH (23:06)
--- NOTE | 2022-05-25 08:19 | Hospitalist Progress Note ---
Date of Service May 25, 2022 Assessment & Plan (1) COVID: Plan: Presented with generalized weakness, fatigue, loss of appetite, along with confusion (dementia issues baseline however recent B12 low 236 in April 2022) and cough since SATURDAY Vaccinated and Boosted. August 20/2021 - Moderna x3 +COVID testing, imaging with patchy airspace consolidation in bases of both lungs L>R Maintain COVID isolation precautions for now given positive testing * Given dose Ceftriaxone/Azithro in ER, however suspect viral pneumonia. No sputum production/elevated WBC * Procal negative * Has been 98-100% on room air, no shortness of breath reported or need for dexamethasone or remdesivir. 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 B12 checked earlier this year B12 low normal 236 in April 2022 --> will place on 1000mcg daily as should be taking at home however said something about taking a B complex instead Discussed with about low normal and would rec taking 1000mcg daily at d/c (4) GERD (gastroesophageal reflux disease): Plan: Continue pantoprazole 40mg PO daily (5) Gout: Plan: Continue allopurinol 300mg PO daily (6) Hypertension: Plan: Hold lisinopril due to GATO, BP stable 119/64 Monitor (7) Hyperlipidemia: Plan: Discontinue atorvastatin due to Paxlovid use -- will resume as not giving paxlovid Plan VTE Prophylaxis - Heparin 5000 units SQ BID PT/OT consulted Admission and Anticipated Discharge Date Admission Date: May 24, 2022 Subjective Patient evaluated this morning. Doing well. Eating/drinking but does endorse decreased appetitie. No cough appreciated, denies shortness of breath or chest pain. Discussed with about paxlovid and will hold off given respiratory status stable/no hypoxia or O2 requirement, and CRP not significantly elevated. and patient agreeable to hold off and will monitor/hydrate and encouraged patient to push oral fluids and maybe we could get him home tomorrow. Patient denies fever/chills, abdominal pain, nausea vomiting. Moving his bowels. states dementia issues at baseline however patient doing quite well, knows year/in hospital but not name of hospital. to visit around 11. Not symptomatic and took home test last evening which was negative however she is not sure if she did it correct and was waiting on testing from PCP to [facility] location. Review of Systems Review of Systems: All systems reviewed & are unremarkable except as noted in HPI & below Physical Exam Physical Exam: General: WD/WN obese male sitting up in bed, aide at bedside, no acute distress HEENT: head normocephalic, atraumatic, mm slightly dry, trachea midline without deviation Resp: CTAB, no w/c/r, on room air 99% CV: RRR, no m/r/g, no calf edema or tenderness, pulses palpable GI: +BS, nontender, no guarding : no mckay MSK/Neuro: moves all extremities, generalized weakness equally 4/5 Psych: Alert, oriented to person/in hospital, year, not to name of hospital, pleasant and cooperative Results & Data Results & Data ([facility]) Vital Signs (Past 12 Hours) Vital Signs Temp Pulse Pulse Pulse Resp BP Pulse Ox 05/25/22 07:03 36.7 C 78 20 119/64 99 05/24/22 22:12 05/24/22 21:56 36.4 C L 84 18 130/64 100 05/24/22 21:33 05/24/22 21:00 105 H 19 99 O2 Del Method 05/25/22 07:03 Room Air 05/24/22 22:12 Room Air 05/24/22 21:56 Room Air 05/24/22 21:33 Room Air 05/24/22 21:00 Room Air Laboratory Results 05/25/22 05/25/22 05/24/22 Range/Units 08:30 08:30 17:46 WBC 6.75 (4.8-10.8) K/ul RBC 4.21 L (4.63-6.08) M/uL Hgb 12.5 L (14.0-18.0) g/dl Hct 36.9 L (40.1-51.0) % MCV 87.6 (80.0-100.0) fL MCH 29.7 (25.0-34.0) pg MCHC 33.9 (32.0-36.0) g/dL RDW Std Deviation 44.8 (36.4-46.3) fL RDW Coeff of Andi 13.9 (11.5-14.5) % Plt Count 319 (130-400) K/uL MPV 10.1 (9.4-12.4) fL Immature Gran % (Auto) 0.3 % Neut % (Auto) 68.3 % Lymph % (Auto) 15.9 % [place]rie % (Auto) 13.8 % Eos % (Auto) 1.3 % Baso % (Auto) 0.4 % Neut # (Auto) 4.61 (1.4-6.5) K/uL Lymph # (Auto) 1.07 L (1.2-3.4) K/uL [place]rie # (Auto) 0.93 H (0.24-0.82) K/uL Eos # (Auto) 0.09 (0-0.50) K/uL Baso # (Auto) 0.03 (0-0.2) K/uL Immature Gran # (Auto) 0.02 (0.00-0.02) K/uL PT (9.0-12.0) Seconds INR (0.9-1.1) Sodium 138 (136-145) mmol/L Potassium 4.1 (3.5-5.1) mmol/L Chloride 105 (98-107) mmol/L Carbon Dioxide 22 (21-32) mmol/L Anion Gap 11 (3-11) BUN 44 H (6-23) mg/dl Creatinine 1.68 H D (0.6-1.4) mg/dl Est Cr Clr Drug Dosing 35.1 ml/min Est GFR ( Amer) 44.4 ml/min Est GFR (Non-Af Amer) 38.3 ml/min BUN/Creatinine Ratio 26.2 H (10-20) Glucose 88 (70-99(Fasting)) mg/dl Calcium 9.2 (8.5-10.1) mg/dl Magnesium (1.7-2.4) mg/dl Total Bilirubin (0.2-1.0) mg/dl AST (13-39) U/L ALT (7-52) U/L Alkaline Phosphatase (34-104) U/L Troponin I High Sens (0-20) pg/ml C-Reactive Protein 2.25 H (0-0.5) mg/dl Total Protein (6.0-8.3) gm/dl Albumin (3.4-5.0) gm/dl Globulin (2.5-4.0) gm/dl Albumin/Globulin Ratio (0.9-2) Procalcitonin (0-0.5) ng/ml TSH (0.300-4.500) uIu/ml Urine Color Urine Appearance (Clear) Urine pH (4.5-7.5) Ur Specific [place] (1.000-1.030) Urine Protein (Negative) Urine Glucose (UA) (Negative) Urine Ketones (Negative) Urine Blood (Negative) Urine Nitrite (Negative) Urine Bilirubin (Negative) Urine Urobilinogen (Negative) Ur Leukocyte Esterase (Negative) SARS-CoV-2, RNA, NAAT POSITIVE A* (NEGATIVE) 05/24/22 05/24/22 05/24/22 Range/Units 17:19 14:50 14:50 WBC (4.8-10.8) K/ul RBC (4.63-6.08) M/uL Hgb (14.0-18.0) g/dl Hct (40.1-51.0) % MCV (80.0-100.0) fL MCH (25.0-34.0) pg MCHC (32.0-36.0) g/dL RDW Std Deviation (36.4-46.3) fL RDW Coeff of Andi (11.5-14.5) % Plt Count (130-400) K/uL MPV (9.4-12.4) fL Immature Gran % (Auto) % Neut % (Auto) % Lymph % (Auto) % [place]rie % (Auto) % Eos % (Auto) % Baso % (Auto) % Neut # (Auto) (1.4-6.5) K/uL Lymph # (Auto) (1.2-3.4) K/uL [place] # (Auto) (0.24-0.82) K/uL Eos # (Auto) (0-0.50) K/uL Baso # (Auto) (0-0.2) K/uL Immature Gran # (Auto) (0.00-0.02) K/uL PT (9.0-12.0) Seconds INR (0.9-1.1) Sodium (136-145) mmol/L Potassium (3.5-5.1) mmol/L Chloride (98-107) mmol/L Carbon Dioxide (21-32) mmol/L Anion Gap (3-11) BUN (6-23) mg/dl Creatinine (0.6-1.4) mg/dl Est Cr Clr Drug Dosing ml/min Est GFR ( Amer) ml/min Est GFR (Non-Af Amer) ml/min BUN/Creatinine Ratio (10-20) Glucose (70-99(Fasting)) mg/dl Calcium (8.5-10.1) mg/dl Magnesium (1.7-2.4) mg/dl Total Bilirubin (0.2-1.0) mg/dl AST (13-39) U/L ALT (7-52) U/L Alkaline Phosphatase (34-104) U/L Troponin I High Sens (0-20) pg/ml C-Reactive Protein (0-0.5) mg/dl Total Protein (6.0-8.3) gm/dl Albumin (3.4-5.0) gm/dl Globulin (2.5-4.0) gm/dl Albumin/Globulin Ratio (0.9-2) Procalcitonin < 0.05 (0-0.5) ng/ml TSH 1.859 (0.300-4.500) uIu/ml Urine Color Yellow Urine Appearance Clear (Clear) Urine pH 5.5 (4.5-7.5) Ur Specific [place] 1.010 (1.000-1.030) Urine Protein Negative (Negative) Urine Glucose (UA) Negative (Negative) Urine Ketones 1+ H (Negative) Urine Blood Negative (Negative) Urine Nitrite Negative (Negative) Urine Bilirubin Negative (Negative) Urine Urobilinogen Negative (Negative) Ur Leukocyte Esterase Negative (Negative) SARS-CoV-2, RNA, NAAT (NEGATIVE) 05/24/22 05/24/22 05/24/22 Range/Units 14:50 14:50 14:50 WBC 9.23 (4.8-10.8) K/ul RBC 4.38 L (4.63-6.08) M/uL Hgb 13.0 L (14.0-18.0) g/dl Hct 38.4 L (40.1-51.0) % MCV 87.7 (80.0-100.0) fL MCH 29.7 (25.0-34.0) pg MCHC 33.9 (32.0-36.0) g/dL RDW Std Deviation 44.2 (36.4-46.3) fL RDW Coeff of Andi 13.6 (11.5-14.5) % Plt Count 358 (130-400) K/uL MPV 10.5 (9.4-12.4) fL Immature Gran % (Auto) 0.5 % Neut % (Auto) 72.3 % Lymph % (Auto) 15.6 % [place]rie % (Auto) 10.2 % Eos % (Auto) 1.1 % Baso % (Auto) 0.3 % Neut # (Auto) 6.67 H (1.4-6.5) K/uL Lymph # (Auto) 1.44 (1.2-3.4) K/uL [place] # (Auto) 0.94 H (0.24-0.82) K/uL Eos # (Auto) 0.10 (0-0.50) K/uL Baso # (Auto) 0.03 (0-0.2) K/uL Immature Gran # (Auto) 0.05 H (0.00-0.02) K/uL PT 11.9 (9.0-12.0) Seconds INR 1.1 (0.9-1.1) Sodium 134 L (136-145) mmol/L Potassium 4.4 (3.5-5.1) mmol/L Chloride 99 (98-107) mmol/L Carbon Dioxide 20 L (21-32) mmol/L Anion Gap 15 H (3-11) BUN 57 H (6-23) mg/dl Creatinine 2.22 H (0.6-1.4) mg/dl Est Cr Clr Drug Dosing 26.5 ml/min Est GFR ( Amer) 31.7 ml/min Est GFR (Non-Af Amer) 27.4 ml/min BUN/Creatinine Ratio 25.7 H (10-20) Glucose 88 (70-99(Fasting)) mg/dl Calcium 9.8 (8.5-10.1) mg/dl Magnesium 2.0 (1.7-2.4) mg/dl Total Bilirubin 0.9 (0.2-1.0) mg/dl AST 24 (13-39) U/L ALT 11 (7-52) U/L Alkaline Phosphatase 103 (34-104) U/L Troponin I High Sens 14.8 (0-20) pg/ml C-Reactive Protein (0-0.5) mg/dl Total Protein 7.9 (6.0-8.3) gm/dl Albumin 3.9 (3.4-5.0) gm/dl Globulin 4.0 (2.5-4.0) gm/dl Albumin/Globulin Ratio 1.0 (0.9-2) Procalcitonin (0-0.5) ng/ml TSH (0.300-4.500) uIu/ml Urine Color Urine Appearance (Clear) Urine pH (4.5-7.5) Ur Specific [place] (1.000-1.030) Urine Protein (Negative) Urine Glucose (UA) (Negative) Urine Ketones (Negative) Urine Blood (Negative) Urine Nitrite (Negative) Urine Bilirubin (Negative) Urine Urobilinogen (Negative) Ur Leukocyte Esterase (Negative) SARS-CoV-2, RNA, NAAT (NEGATIVE) Diagnostic Findings Chest X-Ray 05/24/22 15:02 XR chest 1V portable CLINICAL HISTORY: weakness TECHNIQUE: Single frontal radiograph of the chest was obtained. Comparison: Comparison is made to chest radiograph 11/14/2021 FINDINGS: No lines and tubes are seen. The cardiomediastinal silhouette is normal. Trace atelectasis at the left lung base. No evidence of pleural effusion or pneumothorax. IMPRESSION: No acute chest disease. ACT 112: Negative or not required by law. Electronically signed by: Germain Chairez M.D. 05/24/2022 4:[address] 05/24/22 15:02 CT head/brain wo con CLINICAL HISTORY: ams Technique: Contiguous axial CT images of the head were acquired from the base of the skull to the vertex without intravenous contrast administration. Images were viewed in brain, subdural and bone windows. Automated dose lowering techniques and/or adjustment according to patient size were utilized for this exam. Comparison: Comparison is made to CT head 03/09/2022 Findings: Areas of decreased attenuation are present in the periventricular and subcortical white matter bilaterally consistent with small vessel ischemic di sease. Generalized cerebral atrophy with commensurate enlargement of the ventricles, sulci, and cisterns is also present. There is no acute intracranial hemorrhage or evidence of acute territorial infarction. No shift of the midline structures, mass effect, or extra-axial abnormalities are shown. Atherosclerotic calcifications are present in the intracranial segments of the internal carotid arteries. Imaged portions of the paranasal sinuses and mastoid air cells are clear. The orbits appear normal. There are no acute fractures of the calvaria or scalp swelling. Impression: No acute intracranial hemorrhage, no evidence of acute territorial infarction or other acute intracranial disease process. ACT 112: Negative or not required by law. Electronically signed by: Germain Chairez M.D. 05/24/2022 3:53 PM Abdomen/Pelvis CT 05/24/22 15:07 CT SCAN OF THE ABDOMEN AND PELVIS WITHOUT IV CONTRAST CLINICAL HISTORY: Change in mental status. COMPARISON STUDY: Abdominal CT dated 05/04/2015. TECHNIQUE: CT scan of the abdomen and pelvis is performed from the lung bases to the proximal femora. Images are reviewed in the axial, sagittal, and coronal planes. IV contrast was not administered for this examination. Note that the examination was performed in significantly suboptimal fashion without oral and IV contrast. There is also significant motion artifact, as well as streak artifact from the arms which could not be elevated above the abdomen. A dose lowering technique was utilized adhering to the principles of ALARA. CT DOSE: 3639.13 mGy.cm FINDINGS: Lung bases: The heart is top normal in size and without pericardial effusion. The coronary arteries and aortic valve leaflets are densely calcified. Patchy airspace consolidation is present at both lung bases, left greater than right. Liver: The unenhanced liver is normal in size, contour, and attenuation. There is no intrahepatic biliary ductal dilatation. Gallbladder: Surgically absent noting clips in the gallbladder fossa. Spleen: Normal in size and attenuation. Pancreas: The unenhanced pancreas is moderately atrophic and grossly unremarkable. Adrenal glands: Unremarkable. Kidneys: The unenhanced kidneys demonstrate cortical atrophy and are without hydronephrosis. There are no renal calculi identified. There is no evidence of contour deforming renal mass lesion. Abdominal vasculature: The abdominal aorta is normal in course and caliber noting advanced atherosclerotic calcification. Bowel: There is no bowel obstruction. The appendix is normal as visualized. Peritoneum: There is no intraperitoneal free air or abdominal ascites. Lymphadenopathy: None. Pelvic viscera: The prostate gland is mildly enlarged and heterogeneous. The bladder wall appears thickened and trabeculated indicating chronic outlet reduction. Skeletal structures: The skeletal structures are osteopenic. There is moderate to advanced lumbosacral spondylosis. Degenerative change is also noted in the hips and sacroiliac joints. No lytic or blastic lesions are seen. IMPRESSION: 1. Significantly suboptimal examination without oral and IV contrast. There is also streak and motion artifact. 2. Patchy bibasilar airspace consolidation is typical for pneumonia. Clinical correlation will be required and radiographic follow-up to resolution is recommended. 3. No acute infectious or inflammatory findings are identified in the abdomen or pelvis. 4. Additional findings as above. ACT 112: Negative or not required by law. Electronically signed by: Wild Vega M.D. 05/24/2022 3:54 PM PG Care Time/CCT Total # of Minutes Spent Total Time Spent with Patient: Total time spent is greater than 50% in coordination of care (as documented) at patient's floor/unit and/or counseling patient: Coding Level of Care Code 65981 Subseq Hosp Care Lvl 2 Diagnoses COVID U07.1 GATO (acute kidney injury) N17.9 Vitamin B12 deficiency E53.8 GERD (gastroesophageal reflux disease) K21.9 Gout M10.9 Hypertension I10 Hypertension type: primary hypertension Hyperlipidemia E78.5 (1) Hypertension Hypertension type: primary hypertension Qualified Code(s): I10 - Essential (primary) hypertension
[2022-05-25] MEDS ORDERED: THIAMINE HCL 100 MG in SYRINGE 9 ML IV SCH (09:00)
[2022-05-25 09:09] LABS: Basophils # (auto) 0.03 K/uL (0-0.2); Basophils % (auto) 0.4 %; Eosinophils # (auto) 0.09 K/uL (0-0.50); Eosinophils % (auto) 1.3 %; Hematocrit (blood only) 36.9 % (40.1-51.0); Hemoglobin 12.5 g/dl (14.0-18.0); Immature Granulocytes # (auto) 0.02 K/uL (0.00-0.02); Immature Granulocytes % (auto) 0.3 %; Lymphocytes # (auto) 1.07 K/uL (1.2-3.4); Lymphocytes % (auto) 15.9 %; Mean Corpuscular Hemoglobin 29.7 pg (25.0-34.0); Mean Corpuscular Hgb Conc 33.9 g/dL (32.0-36.0); Mean Corpuscular Volume 87.6 fL (80.0-100.0); Mean Platelet Volume 10.1 fL (9.4-12.4); Monocytes # (auto) 0.93 K/uL (0.24-0.82); Monocytes % (auto) 13.8 %; Neutrophils # (auto) 4.61 K/uL (1.4-6.5); Neutrophils % (auto) 68.3 %; Platelet Count 319 K/uL (130-400); RDW Coefficient of Variation 13.9 % (11.5-14.5); RDW Standard Deviation 44.8 fL (36.4-46.3); Red Blood Count 4.21 M/uL (4.63-6.08); White Blood Count 6.75 K/ul (4.8-10.8)
[2022-05-25] MEDS: allopurinoL 100 MG TAB PO SCH (09:20)
[2022-05-25] MEDS: PANTOprazole 40 MG TAB PO SCH (09:20)
[2022-05-25] MEDS: CYANOCOBALAMIN (B-12) 500 MCG TABLET PO SCH (09:20)
[2022-05-25] MEDS: HEPARIN SOD 5,000 UNIT/0.5 ML VIAL SQ SCH ×2 (09:21→22:38)
[2022-05-25] MEDS: LACTATED RINGER'S 1,000 ML IV SCH ×2 (09:21→22:38)
[2022-05-25 09:30] LABS: BUN Creatinine Ratio 26.2 (10-20); C Reactive Protein 2.25 mg/dl (0-0.5); Calcium 9.2 mg/dl (8.5-10.1); Creatinine Clr Calc Pharmacy 35.1 ml/min; Est GFR (African American) 44.4 ml/min; Est GFR (Non-African American) 38.3 ml/min; Potassium 4.1 mmol/L (3.5-5.1)
[2022-05-25] MEDS ORDERED: LORazepam 1 MG TAB PO PRN (15:32)
[2022-05-25] MEDS ORDERED: LORazepam 0.5 MG TAB PO STA (15:32)
[2022-05-25] MEDS ORDERED: MELATONIN 3 MG TAB PO PRN (15:33)
[2022-05-25] MEDS ORDERED: LORazepam 0.5 MG TAB SL STA (15:36)
[2022-05-25] MEDS ORDERED: MULTI-VITAMIN INFUSION 10 ML, THIAMINE HCL 100 MG, FOLIC ACID 1 MG in SODIUM CHLORIDE 0... IV ONE (16:00)
--- NOTE | 2022-05-25 16:52 | Communication Note ---
Date of Service: May 25, 2022 Patient with increased confusion and not knowing where he was this afternoon. Ambulating to bathroom with and had difficulty with walking however per w demario was unable to locate the walker in the room and IV poll complicated ambulation ability. (prior added Lyme/repeat UA given reports of "forgot how to walk") Does have slight tremor to hands. Ammonia checked, wnl CT head negative on admit, no focal deficit. No new falls/trauma to head. Continues with 1:1 for safety Hx baseline dementia issues (talks about starting aricept), however also B12 borderline low and placed on PO 1000mcg daily Discussed etoh use -- does endorse 1-2 beers daily with dinner but hasn't been eating/drinking much prior couple days --> believes last drink around ay evening, just a sip. Discussed could have some withdrawal as >48 hours, will give banana bag, ativan 0.5mg SL x 1 Also did not get much sleep last night -- melatonin 3mg HS ordered
[2022-05-25] MEDS ORDERED: LORazepam 0.5 MG TAB PO PRN (16:53)
[2022-05-25 17:05] LABS: Lyme Ab IgG w/WB Rflx Negative (Negative); Lyme Ab IgM w/WB Rflx Negative (Negative)
--- NOTE | 2022-05-25 17:59 | Electrocardiogram Report ---
Test Reason : Blood Pressure : / mmHG Vent. Rate : 084 BPM Atrial Rate : 084 BPM P-R Int : 198 ms QRS Dur : 132 ms QT Int : 422 ms P-R-T Axes : 000 030 177 degrees QTc Int : 498 ms Poor data quality, interpretation may be adversely affected probably Normal sinus rhythm Left bundle branch block Abnormal ECG When compared with ECG of 09-MAR-2022 19:01, No significant change was found Confirmed by Dakotah Ma ([id number]) on 05/25/2022 5:58:36 PM Referred By: REFERRED SELF Confirmed By:Tk Ma
[2022-05-25 19:18] LABS: Appearance Urine Clear (Clear); Bilirubin Urine Negative (Negative); Blood Urine Negative (Negative); Color Urine Yellow; Glucose Urine UA Negative (Negative); Ketones Urine 1+ (Negative); Leukocyte Esterase Urine Negative (Negative); Nitrite Urine Negative (Negative); Protein Urine Negative (Negative); Specific Gravity Urine 1.011 (1.000-1.030); Urobilinogen Urine Negative (Negative)
[2022-05-26 08:03] LABS: Hematocrit (blood only) 35.2 % (40.1-51.0); Hemoglobin 11.5 g/dl (14.0-18.0); Mean Corpuscular Hemoglobin 29.8 pg (25.0-34.0); Mean Corpuscular Hgb Conc 32.7 g/dL (32.0-36.0); Mean Corpuscular Volume 91.2 fL (80.0-100.0); Mean Platelet Volume 10.4 fL (9.4-12.4); Platelet Count 276 K/uL (130-400); RDW Coefficient of Variation 14.3 % (11.5-14.5); RDW Standard Deviation 47.6 fL (36.4-46.3); Red Blood Count 3.86 M/uL (4.63-6.08); White Blood Count 6.05 K/ul (4.8-10.8)
[2022-05-26 08:16] LABS: BUN Creatinine Ratio 21.8 (10-20); Calcium 8.7 mg/dl (8.5-10.1); Creatinine Clr Calc Pharmacy 49.5 ml/min; Est GFR (African American) 67.4 ml/min; Est GFR (Non-African American) 58.2 ml/min; Potassium 4.2 mmol/L (3.5-5.1)
--- NOTE | 2022-05-26 08:39 | Hospitalist Progress Note ---
Date of Service May 26, 2022 Assessment & Plan (1) COVID: Plan: Presented with generalized weakness, fatigue, loss of appetite, along with confusion (dementia issues baseline however recent B12 low 236 in April 2022) and cough since SATURDAY Vaccinated and Boosted. August 20/2021 - Moderna x3 +COVID testing, imaging with patchy airspace consolidation in bases of both lungs L>R Maintain COVID isolation precautions for now given positive testing * Given dose Ceftriaxone/Azithro in ER, however suspect viral pneumonia. No sputum production/elevated WBC * Procal negative * Has been 98-100% on room air, no shortness of breath reported or need for dexamethasone or remdesivir. Within 5 days of symptoms and sent rx for Paxlovid and picked up and delivered however no O2 requirement/hypoxia/shortness of breath and discussed with and would hold off on giving this medication to prevent side effects/adverse reactions in patient that does not appear to have mod/severe disease Had not been eating/drinking much due to decreased taste/loss of appetite [employer] but was taking lisinopril at home for BP still during this period and Cr 2,22 on admit IVF provided, continuing Cr improved from max 2.2 --> 1.19 Encouraged PO intake Got increased confusion/agitation afternoon 05/25 and eval w/ at bedside, slightly shaky. Does admit 1-2 beers nightly w/ dinner, last drink Saturday. Also did not get much sleep Ativan 0.5mg SL x 1 provided, ordered melatonin. Banana bag x 1, continue folic acid/thiamine/b12 replacement (B12 low normal prior) PT/OT consulted If labs improved/stable on exam and keeping up with oral intake through day consider d/c home with over the weekend. (2) GATO (acute kidney injury): Plan: BUN 57 , Cr 2.22 on admit, pre-renal/dehydration given poor PO intake [employer] reported from decreased PO intake/diuretic use Hold lisinopril Ordered IVF -- 500cc in ER, addition LR @ 80cc/hr and encouraged PO intake BUN 26, Cr 1.19 and continue IVF for now/hold lisinopril at d/c/monitor BP at home over next 24-48 hours and if stable/taking good PO consider resuming BUN 44 Cr 1.68 BMP in AM (3) Vitamin B12 deficiency: Plan: with prior reports confusion "at baseline". B12 checked earlier this year B12 low normal 236 in April 2022 --> will place on 1000mcg daily as should be jody ing at home however said something about taking a B complex instead Discussed with about low normal and would rec taking 1000mcg daily at d/c (4) GERD (gastroesophageal reflux disease): Plan: Continue pantoprazole 40mg PO daily (5) Gout: Plan: Continue allopurinol 300mg PO daily (6) Hypertension: Plan: Hold lisinopril due to GATO, BP stable 119/64 Monitor (7) Hyperlipidemia: Plan: Discontinue atorvastatin due to Paxlovid use -- will resume as not giving paxlovid Plan VTE Prophylaxis - Heparin 5000 units SQ BID PT/OT consulted Admission and Anticipated Discharge Date Admission Date: May 24, 2022 Results & Data Results & Data ([facility]) Vital Signs (Past 12 Hours) Vital Signs Temp Pulse Resp BP Pulse Ox O2 Del Method 05/26/22 06:59 36.8 C 87 20 162/79 H 98 Room Air 05/26/22 03:15 36.6 C 81 16 138/70 94 Room Air Laboratory Results 05/26/22 05/26/22 05/25/22 Range/Units 07:21 07:21 19:06 WBC 6.05 (4.8-10.8) K/ul RBC 3.86 L (4.63-6.08) M/uL Hgb 11.5 L (14.0-18.0) g/dl Hct 35.2 L (40.1-51.0) % MCV 91.2 (80.0-100.0) fL MCH 29.8 (25.0-34.0) pg MCHC 32.7 (32.0-36.0) g/dL RDW Std Deviation 47.6 H (36.4-46.3) fL RDW Coeff of Andi 14.3 (11.5-14.5) % Plt Count 276 (130-400) K/uL MPV 10.4 (9.4-12.4) fL Immature Gran % (Auto) % Neut % (Auto) % Lymph % (Auto) % [place] % (Auto) % Eos % (Auto) % Baso % (Auto) % Neut # (Auto) (1.4-6.5) K/uL Lymph # (Auto) (1.2-3.4) K/uL [place] # (Auto) (0.24-0.82) K/uL Eos # (Auto) (0-0.50) K/uL Baso # (Auto) (0-0.2) K/uL Immature Gran # (Auto) (0.00-0.02) K/uL Sodium 139 (136-145) mmol/L Potassium 4.2 (3.5-5.1) mmol/L Chloride 109 H (98-107) mmol/L Carbon Dioxide 23 (21-32) mmol/L Anion Gap 7 (3-11) BUN 26 H (6-23) mg/dl Creatinine 1.19 D (0.6-1.4) mg/dl Est Cr Clr Drug Dosing 49.5 ml/min Est GFR ( Amer) 67.4 ml/min Est GFR (Non-Af Amer) 58.2 ml/min BUN/Creatinine Ratio 21.8 H (10-20) Glucose 82 (70-99(Fasting)) mg/dl Calcium 8.7 (8.5-10.1) mg/dl Ammonia (18-72) umol/L C-Reactive Protein (0-0.5) mg/dl Urine Color Yellow Urine Appearance Clear (Clear) Urine pH 6.0 (4.5-7.5) Ur Specific [place] 1.011 (1.000-1.030) Urine Protein Negative (Negative) Urine Glucose (UA) Negative (Negative) Urine Ketones 1+ H (Negative) Urine Blood Negative (Negative) Urine Nitrite Negative (Negative) Urine Bilirubin Negative (Negative) Urine Urobilinogen Negative (Negative) Ur Leukocyte Esterase Negative (Negative) Lyme Disease IgG Ab (Negative) Lyme Disease IgM Ab (Negative) 05/25/22 05/25/22 05/25/22 Range/Units 15:41 15:41 08:30 WBC (4.8-10.8) K/ul RBC (4.63-6.08) M/uL Hgb (14.0-18.0) g/dl Hct (40.1-51.0) % MCV (80.0-100.0) fL MCH (25.0-34.0) pg MCHC (32.0-36.0) g/dL RDW Std Deviation (36.4-46.3) fL RDW Coeff of Andi (11.5-14.5) % Plt Count (130-400) K/uL MPV (9.4-12.4) fL Immature Gran % (Auto) % Neut % (Auto) % Lymph % (Auto) % [place] % (Auto) % Eos % (Auto) % Baso % (Auto) % Neut # (Auto) (1.4-6.5) K/uL Lymph # (Auto) (1.2-3.4) K/uL [place] # (Auto) (0.24-0.82) K/uL Eos # (Auto) (0-0.50) K/uL Baso # (Auto) (0-0.2) K/uL Immature Gran # (Auto) (0.00-0.02) K/uL Sodium 138 (136-145) mmol/L Potassium 4.1 (3.5-5.1) mmol/L Chloride 105 (98-107) mmol/L Carbon Dioxide 22 (21-32) mmol/L Anion Gap 11 (3-11) BUN 44 H (6-23) mg/dl Creatinine 1.68 H D (0.6-1.4) mg/dl Est Cr Clr Drug Dosing 35.1 ml/min Est GFR ( Amer) 44.4 ml/min Est GFR (Non-Af Amer) 38.3 ml/min BUN/Creatinine Ratio 26.2 H (10-20) Glucose 88 (70-99(Fasting)) mg/dl Calcium 9.2 (8.5-10.1) mg/dl Ammonia 23.0 (18-72) umol/L C-Reactive Protein 2.25 H (0-0.5) mg/dl Urine Color Urine Appearance (Clear) Urine pH (4.5-7.5) Ur Specific [place] (1.000-1.030) Urine Protein (Negative) Urine Glucose (UA) (Negative) Urine Ketones (Negative) Urine Blood (Negative) Urine Nitrite (Negative) Urine Bilirubin (Negative) Urine Urobilinogen (Negative) Ur Leukocyte Esterase (Negative) Lyme Disease IgG Ab Negative (Negative) Lyme Disease IgM Ab Negative (Negative) 05/25/22 Range/Units 08:30 WBC 6.75 (4.8-10.8) K/ul RBC 4.21 L (4.63-6.08) M/uL Hgb 12.5 L (14.0-18.0) g/dl Hct 36.9 L (40.1-51.0) % MCV 87.6 (80.0-100.0) fL MCH 29.7 (25.0-34.0) pg MCHC 33.9 (32.0-36.0) g/dL RDW Std Deviation 44.8 (36.4-46.3) fL RDW Coeff of Andi 13.9 (11.5-14.5) % Plt Count 319 (130-400) K/uL MPV 10.1 (9.4-12.4) fL Immature Gran % (Auto) 0.3 % Neut % (Auto) 68.3 % Lymph % (Auto) 15.9 % [place] % (Auto) 13.8 % Eos % (Auto) 1.3 % Baso % (Auto) 0.4 % Neut # (Auto) 4.61 (1.4-6.5) K/uL Lymph # (Auto) 1.07 L (1.2-3.4) K/uL [place] # (Auto) 0.93 H (0.24-0.82) K/uL Eos # (Auto) 0.09 (0-0.50) K/uL Baso # (Auto) 0.03 (0-0.2) K/uL Immature Gran # (Auto) 0.02 (0.00-0.02) K/uL Sodium (136-145) mmol/L Potassium (3.5-5.1) mmol/L Chloride (98-107) mmol/L Carbon Dioxide (21-32) mmol/L Anion Gap (3-11) BUN (6-23) mg/dl Creatinine (0.6-1.4) mg/dl Est Cr Clr Drug Dosing ml/min Est GFR ( Amer) ml/min Est GFR (Non-Af Amer) ml/min BUN/Creatinine Ratio (10-20) Glucose (70-99(Fasting)) mg/dl Calcium (8.5-10.1) mg/dl Ammonia (18-72) umol/L C-Reactive Protein (0-0.5) mg/dl Urine Color Urine Appearance (Clear) Urine pH (4.5-7.5) Ur Specific [place] (1.000-1.030) Urine Protein (Negative) Urine Glucose (UA) (Negative) Urine Ketones (Negative) Urine Blood (Negative) Urine Nitrite (Negative) Urine Bilirubin (Negative) Urine Urobilinogen (Negative) Ur Leukocyte Esterase (Negative) Lyme Disease IgG Ab (Negative) Lyme Disease IgM Ab (Negative) PG Care Time/CCT Total # of Minutes Spent Total Time Spent with Patient: Total time spent is greater than 50% in coordination of care (as documented) at patient's floor/unit and/or counseling patient: Coding Diagnoses COVID U07.1 GATO (acute kidney injury) N17.9 Vitamin B12 deficiency E53.8 GERD (gastroesophageal reflux disease) K21.9 Gout M10.9 Hypertension I10 Hypertension type: primary hypertension Hyperlipidemia E78.5 (1) Hypertension Hypertension type: primary hypertension Qualified Code(s): I10 - Essential (primary) hypertension
[2022-05-26] MEDS ORDERED: ATORVASTATIN 40 MG TAB PO SCH (09:00)
[2022-05-26] MEDS ORDERED: FOLIC ACID 1 MG in SYRINGE 9.8 ML IV SCH (09:00)
[2022-05-26] MEDS ORDERED: THIAMINE HCL 100 MG in SYRINGE 9 ML IV SCH (09:00)
[2022-05-26] MEDS: PANTOprazole 40 MG TAB PO SCH (10:18)
[2022-05-26] MEDS: CYANOCOBALAMIN (B-12) 500 MCG TABLET PO SCH (10:18)
[2022-05-26] MEDS: HEPARIN SOD 5,000 UNIT/0.5 ML VIAL SQ SCH (10:19)
[2022-05-26] MEDS: allopurinoL 100 MG TAB PO SCH (10:19)
[2022-05-26] MEDS: LACTATED RINGER'S 1,000 ML IV SCH ×2 (10:19→10:28)
--- NOTE | 2022-05-26 12:12 | Discharge Summary ---
Date of Service May 26, 2022 Admission HPI Per Admitting Provider Francisco Guzman is a 77 year old male who presents to the ER with generalized weakness, fatigue and loss of appetite. Patient seen with his as patient is confused and unable to give reliable history, he has mild ongoing dementia in addition. His reports not sleeping well, fatigue, generalized weakness, decreased appetite, mild increased confusion and cough since Saturday. No known COVID exposure. No sore throat, shortness of breath, chest pain, abdominal pain or diarrhea. He started having rigors this afternoon therefore his called their family physician and on hold for a long time therefore she ended up calling 911. In the ER initially diagnosed with pneumonia and GATO and treated with IV fluids, ceftriaxone and azithromycin. Creatinine 2.22 from baseline 1.19. He was referred to medicine for admission and ongoing management of GATO and pneumonia prior to SARS-COV-2 PCR result which was subsequently positive. His reports he is vaccinated x2 with one booster in August 2021 (all Moderna). Admission Exam Per Admitting Provider Constitutional: WD/WN, vitals as above + frail appearing Eyes: PERRL, conjunctivae normal, anicteric sclerae ENMT: external ear and nose normal, oropharynx normal Mouth: + dry oral mucous membranes Neck: trachea midline, no thyromegaly Respiratory: normal respiratory effort Cardiovascular: RRR, no murmur, no edema Gastrointestinal (Abdomen): normal bowel sounds, soft, nontender, no hepatosplenomegaly Musculoskeletal: no cyanosis or clubbing, extremities motor strength 5/5 Skin: no rashes, warm and dry Neurologic: moves all extremities and awake; not confused C Psychiatric: A+Ox3, euthymic affect Genitourinary: no CVA tenderness Principal Diagnosis COVID-19, Acute Kidney Injury, AMS Discharge Exam General: WD/WN obese male sitting up in chair looking out the window, NAD HEENT: head normocephalic, atraumatic, mm slightly dry (much improved from days prior), trachea midline without deviation Resp: CTAB, no w/c/r, on room air 99% CV: RRR, no m/r/g, no calf edema or tenderness, pulses palpable GI: +BS, nontender, no guarding : no mckay MSK/Neuro: moves all extremities, generalized weakness equally 4/5 Psych: Alert, oriented to person/in hospital, year, not to name of hospital, [facility] Discharge Data Allergies Allergy/AdvReac Type Severity Reaction Status Date / Time Penicillins Allergy Intermediate RASH Verified 05/24/22 18:03 clindamycin Allergy Unknown Rash Verified 05/24/22 18:03 shellfish derived Allergy Unknown Rash-WITH Verified 05/24/22 18:03 SHELLFISH oxycodone AdvReac Intermediate confusion Verified 05/24/22 18:03 Consultations 05/24/22 16:36 ED Decision to Admit Stat Ordered Studies Chest X-Ray 05/24/22 15:02 XR chest 1V portable CLINICAL HISTORY: weakness TECHNIQUE: Single frontal radiograph of the chest was obtained. Comparison: Comparison is made to chest radiograph 11/14/2021 FINDINGS: No lines and tubes are seen. The cardiomediastinal silhouette is normal. Trace atelectasis at the left lung base. No evidence of pleural effusion or pneumothorax. IMPRESSION: No acute chest disease. ACT 112: Negative or not required by law. Electronically signed by: Germain Chairez M.D. 05/24/2022 4:[address] 05/24/22 15:02 CT head/brain wo con CLINICAL HISTORY: ams Technique: Contiguous axial CT images of the head were acquired from the base of the skull to the vertex without intravenous contrast administration. Images were viewed in brain, subdural and bone windows. Automated dose lowering techniques and/or adjustment according to patient size were utilized for this exam. Comparison: Comparison is made to CT head 03/09/2022 Findings: Areas of decreased attenuation are present in the periventricular and subcortical white matter bilaterally consistent with small vessel ischemic disease. Generalized cerebral atrophy with commensurate enlargement of the ventricles, sulci, and cisterns is also present. There is no acute intracranial hemorrhage or evidence of acute territorial infarction. No shift of the midline structures, mass effect, or extra-axial abnormalities are shown. Atherosclerotic calcifications are present in the intracranial segments of the internal carotid arteries. Imaged portions of the paranasal sinuses and mastoid air cells are clear. The orbits appear normal. There are no acute fractures of the calvaria or scalp swelling. Impression: No acute intracranial hemorrhage, no evidence of acute territorial infarction or other acute intracranial disease process. ACT 112: Negative or not required by law. Electronically signed by: Germain Chairez M.D. 05/24/2022 3:53 PM Abdomen/Pelvis CT 05/24/22 15:07 CT SCAN OF THE ABDOMEN AND PELVIS WITHOUT IV CONTRAST CLINICAL HISTORY: Change in mental status. COMPARISON STUDY: Abdominal CT dated 05/04/2015. TECHNIQUE: CT scan of the abdomen and pelvis is performed from the lung bases to the proximal femora. Images are reviewed in the axial, sagittal, and coronal planes. IV contrast was not administered for this examination. Note that the examination was performed in significantly suboptimal fashion without oral and IV contrast. There is also significant motion artifact, as well as streak artifact from the arms which could not be elevated above the abdomen. A dose lowering technique was utilized adhering to the principles of ALARA. CT DOSE: 3639.13 mGy.cm FINDINGS: Lung bases: The heart is top normal in size and without pericardial effusion. The coronary arteries and aortic valve leaflets are densely calcified. Patchy airspace consolidation is present at both lung bases, left greater than right. Liver: The unenhanced liver is normal in size, contour, and attenuation. There is no intrahepatic biliary ductal dilatation. Gallbladder: Surgically absent noting clips in the gallbladder fossa. Spleen: Normal in size and attenuation. Pancreas: The unenhanced pancreas is moderately atrophic and grossly unremarkable. Adrenal glands: Unremarkable. Kidneys: The unenhanced kidneys demonstrate cortical atrophy and are without hydronephrosis. There are no renal calculi identified. There is no evidence of contour deforming renal mass lesion. Abdominal vasculature: The abdominal aorta is normal in course and caliber noting advanced atherosclerotic calcification. Bowel: There is no bowel obstruction. The appendix is normal as visualized. Peritoneum: There is no intraperitoneal free air or abdominal ascites. Lymphadenopathy: None. Pelvic viscera: The prostate gland is mildly enlarged and heterogeneous. The bladder wall appears thickened and trabeculated indicating chronic outlet reduction. Skeletal structures: The skeletal structures are osteopenic. There is moderate to advanced lumbosacral spondylosis. Degenerative change is also noted in the hips and sacroiliac joints. No lytic or blastic lesions are seen. IMPRESSION: 1. Significantly suboptimal examination without oral and IV contrast. There is also streak and motion artifact. 2. Patchy bibasilar airspace consolidation is typical for pneumonia. Clinical correlation will be required and radiographic follow-up to resolution is recommended. 3. No acute infectious or inflammatory findings are identified in the abdomen or pelvis. 4. Additional findings as above. ACT 112: Negative or not required by law. Electronically signed by: Wild Vega M.D. 05/24/2022 3:54 PM Hospital Course (1) COVID: Presented with generalized weakness, fatigue, loss of appetite, along with confusion (dementia issues baseline however recent B12 low 236 in April 2022) and cough since SATURDAY Vaccinated and Boosted. August 20/2021 - Moderna x3 +COVID testing, imaging with patchy airspace consolidation in bases of both lungs L>R Maintain COVID isolation precautions for now given positive testing Given dose Ceftriaxone/Azithro in ER, however suspect viral pneumonia. No sputum production/elevated WBC Procal negative Has been 98-100% on room air, no shortness of breath reported or need for dexamethasone or remdesivir. 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 Did admit 1-2 beers nightly w/ dinner, last drink Saturday. Also did not get much sleep. Banana bag x 1, continue folic acid/thiamine/b12 replacement (B12 low normal prior) and instructed to continue B12 replacement at d/c * Ativan 0.5mg SL x 1 provided, ordered melatonin and patient was actually able to get good night's rest, improvement in AM Discussed with at bedside and patient at baseline cognitive status and wanting to take home. Discussed monitoring BP and holding lisinopril and encouraging oral fluids (sent with hospital cup for measuring) and resume if BP elevated/keeping up with oral intake. Also called ER and provided patient with home pack/pulse ox and to monitor O2 at home/return or call PCP if begins to drop to initiate steroid therapy but no cough/fever/sputum production or shortness of breath and remained ~98% on RA. 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 B12 checked earlier this year B12 low normal 236 in April 2022 --> will place on 1000mcg daily as should be taking at home however said something about taking a B complex instead Discussed with about low normal and would rec taking 500-1000mcg daily at d/c and can continue B complex while continuing to drink beer for completeness/prevention Completed course thiamine (level checked earlier in the year and high). TSH wnl (4) GERD (gastroesophageal reflux disease): Continued pantoprazole 40mg PO daily (5) Gout: Continued allopurinol 300mg PO daily (6) Hypertension: Held lisinopril due to GATO, BP stable Holding lisinopril for day or two at d/c as above and monitor BPs/resume if keeping up with oral intake to prevent worsening dehydration (7) Hyperlipidemia: Discontinue atorvastatin due to Paxlovid use -- will resume as not giving paxlovid (8) Weakness: secondary to covid/poor po intake/GATO on admit IVF provided, Cr resolving and holding DAMON as outlined PT/OT consulted and patient stable for home w/ home health services WBC remained normal off antibiotics, discussed with patient's if any sputum production/increased cough/fever could turn into bacterial pneumonia but lungs sound good on exam and remained stable 98% off oxygen without symptoms and no abx at d/c. Procal negative UA negative (9) Altered mental status: baseline dementia reported w but increased confusion w/ recent event since past week UA negative CT head negative for acute process Continue B12 at d/c given borderline low on prior labs Consider aricept per in discussions with f/u with PCP Tx of GATO and patient back to usual baseline per Did discuss warning signs/worsening confusion and to bring patient back if occurs or if unable to keep up w/ PO intake at home. Discussed boost drinks/ensure as well if not having much appetite but keeping up with fluids. demonstrated understanding Plan VTE Prophylaxis - Heparin 5000 units SQ BID while inpatient Discharge home w/ I certify that this patient is under my care and that I, or a physicians environmental emergencies assistant working with me, had a face to-face encounter that meets the home health [id number] encounter requirements with this patient. The encounter with the patient was in whole, or in part, for the following medi mendoza condition, which is the primary reason for home health care (list medical condition): I certify that, based on my findings, the following services are medically necessary home health services: My clinical findings support the need for the above services because: Further, I certify that my clinical findings support that this patient is homebound (i.e. absences from home require considerable and taxing effort and are for medical reasons or anabaptism services or infrequently or of short duration when for other reasons) because: Certification for Home Health Services: Based on the above findings, I certify that this patient is confined to the home and needs intermittent shelter care, physical therapy and/or speech therapy or continues to need occupational therapy. The patient is under my care, and I have initiated the establishment of the plan of care. This patient will be followed by a physician who will periodically review the plan of care. Total Time Total Time Spent Total Time Spent (In Minutes): 50 Discharge Plan Discharge Items Patient Disposition: Home - Home Health Services Reason For Visit: PNEUMONIA Discharge Diagnosis: COVID-19, Acute Kidney Injury, Dehydration Goals: You have been hospitalized for an acute medical problem. During your stay at [facility], we have made an effort to correct the problem that brought you to the hospital while keeping you as comfortable as possible. Medications were used to bring your condition under control and your discharge instructions will include directions for any medications you should take after leaving the hospital. Please make sure you see your Primary Care Provider as part of your follow up plan. Activity: Resume your previous activity Non-emergency contact: Primary Care Provider Call non-emergency contact if: you have any medication questions Follow-up/Referrals: Carlito Wynn, [Primary Care Provider] - Diet: Heart Healthy Addtl Attending Provider Instructions: You have been hospitalized for weakness, confusion, acute kidney injury and cough/viral pneumonia related to positive covid-19 infection. You have been stable on room air without cough or low oxygen and did not require treatment for covid with steroids or oral agents. Your blood pressure pill lisinopril 40mg has been HELD and would recommend checking your blood pressures at home and only resume if elevated above >160 if keeping up with oral intake. In the meantime you should hold this medication to prevent dehydration until your oral intake is improved. IV fluids were provided and your kidney number are almost back to baseline. Urine was checked and negative for infection. Your prior B12 levels were low and you should continue daily supplementation with B12 and B complex for other B vitamins as discussed. You should maintain isolation for 10 days since positive testing. Your should repeat testing if develops any symptoms. You have been arranged for home health. You should check your oxygen levels at home with a pulse oximeter that you can buy at [facility] and return to the ER if this drops below 94%. Please follow up with your PCP in the next 7-10 days to monitor your progress after discharge. You should return to the ER with any worsening confusion, inability to keep up with oral hydration, chest pain, shortness of breath, or for any other symptoms concerning for you. Pending Studies at Discharge: No Stand-Alone Forms: [facility] Medications and DC Order Prescriptions: New cyanocobalamin (vitamin B-12) 500 mcg Tablet 1,000 mcg PO QAM Qty: 0 0RF Continued aspirin 81 mg tablet,delayed release (DR/EC) See Rx Instructions .ROUTE .COMPLEX PRN (Reason: .prevent blood clots) Dose Instruction: take 1 tablet by mouth twice a day TO PREVENT BLOOD CLOTS Rx Instructions: take 1 tablet by mouth twice a day TO PREVENT BLOOD CLOTS PRN; atorvastatin 40 mg tablet 40 mg PO QAM famotidine 20 mg tablet 20 mg PO QAM PRN (Reason: Acid Reflux) pantoprazole 40 mg tablet,delayed release (DR/EC) 40 mg PO QAM allopurinol 300 mg tablet 300 mg PO QAM lisinopril 40 mg tablet 40 mg PO QAM Discharge Orders: Discharge Order (Routine); Ordered 05/26/22 Ordered By: Maria Esther Saez Admission Data Admit Date/Time: 05/24/22 17:46 Attending Provider: Hipolito Lewis Admit Provider: Matteo Potts Primary Care Provider: Carlito Wynn Other Providers: Matteo Potts ; [facility],Home Health Other Interventions: Discharge Summary Assessment (RN) Last Done: 05/26/22 12:43 Coding Level of Care Code D/C DAY MANAGEMENT >30 MINS Diagnoses COVID U07.1 GATO (acute kidney injury) N17.9 Vitamin B12 deficiency E53.8 GERD (gastroesophageal reflux disease) K21.9 Gout M10.9 Hypertension I10 Hypertension type: primary hypertension Hyperlipidemia E78.5 Weakness R53.1 Altered mental status R41.82
== END 2022-05-26 13:00 | disposition home health service (06) | DRG 178 ==
LOC: ED 14:46 → 3W 17:46 → SUATTDRO 17:46 → 3W 21:33
DX: N17.9 Acute kidney failure, unspecified; R63.0 Anorexia; Z96.651 Presence of right artificial knee joint; K21.9 Gastro-esophageal reflux disease without esophagitis; E86.0 Dehydration; Z88.5 Allergy status to narcotic agent; R53.83 Other fatigue; M10.9 Gout, unspecified; E78.5 Hyperlipidemia, unspecified; N18.9 Chronic kidney disease, unspecified; Z88.1 Allergy status to other antibiotic agents; E53.8 Deficiency of other specified B group vitamins; Z88.0 Allergy status to penicillin; U07.1 COVID-19; Z72.89 Other problems related to lifestyle; I12.9 Hypertensive chronic kidney disease with stage 1 through stage 4 chronic kidney disease, or unspecified chronic kidney disease; F03.90 Unspecified dementia, unspecified severity, without behavioral disturbance, psychotic disturbance, mood disturbance, and anxiety

== ENCOUNTER 2023-07-04 12:40 | Observation (INO) ==
[2023-07-04] MEDS ORDERED: BUPIVACAINE 0.25% PF 30 ML VIAL ONE (12:53)
[2023-07-04] MEDS ORDERED: WATER, STERILE FOR INJ 10 ML VIAL ONE (12:53)
[2023-07-04] MEDS ORDERED: VANCOMYCIN HCL 1000MG/20ML VIAL ONE (12:53)
[2023-07-04] MEDS ORDERED: LIDOCAINE 1% LOCAL 20 ML VIAL ONE (12:53)
--- NOTE | 2023-07-04 13:13 | History & Physical Bridge Note ---
Date of Service July 04, 2023 History & Physical Bridge Note I have examined the patient, reviewed the History & Physical and in the interval since the performance of the History & Physical I have noted the following changes of clinical significance: no changes noted
--- NOTE | 2023-07-04 13:13 | Pre Anesthesia Assessment ---
Date of Service July 04, 2023 Pre Sedation Assessment Cardiovascular + bradycardic Respiratory + respiratory effort normal Pre-Sedation Airway Assessment Smoking Status: Never smoker Hx Sleep Apnea: No Hx Difficult Intubation: No Short, Thick Neck: No Thyromental Distance: > or= 3.5 Finger Breadths Oral Cavity: + WNL Mallampati Class: III ASA: ASA3 Procedure Planning Contraindications for Sedation: none Current Medications Reviewed: Yes Notes The planned sedation has been discussed with the patient. Informed Consent was obtained. I have identified the patient, determined the appropriateness of sedation and have assessed the patient immediately prior to the procedure. All medicine(s) and interventions are by my order.
[2023-07-04] MEDS ORDERED: fentaNYL citrate PF 100 MCG/2 ML VIAL ONE ×2 (13:31→14:12)
[2023-07-04] MEDS ORDERED: ceFAZolin 330 MG/ML 1 GM VIAL ONE (13:31)
[2023-07-04] MEDS ORDERED: MIDAZOLAM HCL 5 MG/ML 1 ML VIAL ONE (13:31)
[2023-07-04] MEDS ORDERED: diphenhydrAMINE 50 MG/ML VIAL ONE (13:43)
[2023-07-04] MEDS ORDERED: ACETAMINOPHEN 325 MG TAB PO PRN (14:47)
--- NOTE | 2023-07-04 14:47 | Post Anesthesia Assessment ---
Date of Service July 04, 2023 Post Sedation Assessment Vital Signs Pulse Resp BP Pulse Ox O2 Del Method 07/04/23 12:59 45 L 18 158/48 H 99 Room Air Recovery Score Activity: Moves 4 extremities Respiration: Deep Breath/Cough Circulation: +/-20% PreAnes Value Consciousness: Fully Awake Oxygen Saturation: > 92% On Room Air Discharge Sedation Level of Care: Fast Track Phase II Post Sedation Plan On clinical assessment, the patient appears to have tolerated the sedation without complications. Patient is recovering as anticipated. Patient will continue to be monitored by nursing and may be discharged when debbie tion discharge criteria are met per below protocol. Upon Completions of procedure up to 15 minutes continue every 5 minute vital signs and the P.A.R. score; then discharge to a Phase I or Fast Track to Phase II per the following guidelines: * Discharge Patient to appropriate Phase II area if PAR is 8 or greater or return to pre- procedure baseline. The post - procedure orders will be as directed. * If PAR score is less than 8 or not return to pre-procedure baseline then patient will follow Phase I monitoring till PAR is reached for Phase II. The Phase I may be done in procedure room or may call to secure a Phase I area. * If naloxone or flumazenil are used for reversal, hold in Phase I for continued monitoring from when last reversal dose was given for a minimum of 60 minutes or longer pending the nurse and/or physician discretion of patient condition before discharge to Phase II. Please call the Sedation Physician to re-evaluate and complete post-note for discharge to Phase II area. Do NOT discharge from procedure sedation or Phase 1 until post- sedation evaluation note is complete by procedure /sedation MD Sedation Discharge Instructions to be given to the patient at discharge to home.
--- NOTE | 2023-07-04 14:47 | Electrophysiology Report ---
Date of Service July 04, 2023 Electrophysiology Procedure Electrophysiology Procedure Report Procedure performed: Implantation of dual-chamber permanent pacemaker with left bundle pacing lead Staff entertainment & media correspondent: Dakotah Ma MD Indication: The patient is a 78-year-old gentleman who presented to his primary care physician with evidence of complete heart block and symptomatic bradycardia. He is felt to be a good candidate for a permanent pacemaker due to symptomatic nonreversible AV node dysfunction. Dual-chamber device was selected as he is currently in sinus rhythm and wish to maintain AV synchrony. Procedure in detail: The patient was informed of the risks benefits and alternatives to the intended procedure and she wished to proceed. [] was taken to the electrophysiology suite in a fasting state. A preoperative antibiotic had been administered. The patient was monitored electrocardiographically throughout today's procedure and conscious sedation was administered per protocol. The left upper pectoral area is prepped and draped in usual sterile fashion. This area was anesthetized using subcutaneous administration of a xylocaine solution. An incision was made at this site and carried down to the prepectoralis fascia using sharp dissection. Electrocautery was also employed for dissection as well as for hemostasis. A device pocket was fashioned tissues above the pectoralis muscle. Subsequent to this maneuver the left axillary vein was accessed using modified Seldinger technique. Sheath was placed over a guidewire and used to facilitate passage of the pacing lead to the right ventricular apex where it was secured for backup pacing. A sheath was placed over the remaining guidewire and use facilitate passage of the guiding catheter for mapping of the interventricular septum. Once an adequate location was identified the pacing lead was then advanced into the interventricular septum under fluoroscopic guidance. Adequate sensing and threshold parameters were obtained prior to removal of the guiding catheter. The proximal portion of the lead was then sutured to the prepectoralis fascia using nonabsorbable suture. The previously placed right ventricular apical lead was then moved to the right atrium. Adequate sensing and threshold parameters were obtained prior to active fixation of this lead to the endocardial surface. The proximal portion of lead was then sutured to prepectoralis fascia using nonabsorbable suture. The device pocket was irrigated with antibiotic solution. The leads were then attached to the device. The device and leads were then placed in the pocket and pocket was closed in 3 layers of absorbable suture. Steri-Strips and sterile dressing were applied. The device was tested noninvasively prior to conclusion the procedure. The patient tolerated procedure well there no immediate complications. Equipment used: New pulse generator: [employer] Medtronic. Model number: [id number] serial number Right atrial lead: [employer] Medtronic. Model number: [id number] serial number Right ventricular lead: [employer] Medtronic. Model number: [id number] serial number Measured data: Right atrial lead: P waves measured 2.8 mV. Pacing threshold 0.7 V at 0.4 ms with a pacing impedance of Right ventricular lead: R waves measured 9.5 mV. Pacing threshold was 0.5 V at 0.4 ms with a pacing impedance of Impression: Successful implantation of dual-chamber permanent pacemaker with left bundle pacing lead [facility] Electrophysiology codes Pacing Procedure 1: Pacin Insert/Replace Pacer A & V PG Moderate Sedation Codes Moderate Sedation Codes Procedure 1: Sedation/Anesthesia: 01715 Mod Sedation by the same physician;Init15 Min Child Age 5 & Up Procedure 2: Sedation/Anesthesia: 69695 Mod Sedation by the same physician; Ea [id number] Minutes
--- NOTE | 2023-07-04 15:34 | XCELERA ---
[id number]
[2023-07-04] MEDS ORDERED: ceFAZolin 1000MG 1,000 MG/7.5 ML SYR IV ONE (21:30)
[2023-07-04] MEDS ORDERED: MELATONIN 3 MG TAB PO PRN (23:55)
[2023-07-05] MEDS ORDERED: lisinopril 10 MG TAB PO SCH (09:00)
[2023-07-05] MEDS ORDERED: allopurinoL 300 MG TAB PO SCH (09:00)
[2023-07-05] MEDS ORDERED: ASPIRIN 81 MG ECTAB PO SCH (09:00)
[2023-07-05] MEDS ORDERED: ATORVASTATIN 40 MG TAB PO SCH (09:00)
--- NOTE | 2023-07-05 09:12 | Discharge Summary ---
Date of Service July 05, 2023 Admission HPI Per Admitting Provider The patient is a 78-year-old gentleman who presented to an outpatient facility with evidence of complete heart block. He was scheduled for permanent pacemaker implantation for symptomatic nonreversible AV node dysfunction. Principal Diagnosis High-degree AV block Discharge Exam On the day of discharge the patient was mentating at baseline. Normal respiratory effort The device implant site was without significant hematoma. No drainage. Some mild ecchymosis. Discharge Data Allergies Allergy/AdvReac Type Severity Reaction Status Date / Time Penicillins Allergy Intermediate RASH Verified 07/04/23 13:22 clindamycin Allergy Unknown Rash Verified 07/04/23 13:22 shellfish derived Allergy Unknown Rash-WITH Verified 07/04/23 13:22 SHELLFISH oxycodone AdvReac Intermediate confusion Verified 07/04/23 13:22 Procedures Performed Operation Date: 07/04/23 14:00 Actual Procedures p Pacer with A/V Leads (Dual) - Dakotah Ma MD Ordered Studies 07/04/23 07:00 EP Lab Images for PACS ONCE Hospital Course (1) Second degree AV block, Mobitz type II: Plan 1. High-degree AV block: On the day of admission the patient underwent implantation of a dual-chamber Medtronic pacemaker with left bundle pacing lead. The remainder of his hospitalization was uneventful. On the morning of discharge device interrogation revealed normal function on both leads. Chest x- ray demonstrated stable lead position without evidence of pneumothorax. Total Time Total Time Spent Total Time Spent (In Minutes): 15 Discharge Plan Discharge Items Patient Disposition: Home - Self-Care Reason For Visit: S/P DUAL CHAMBER PACEMAKER Discharge Diagnosis: Heart block Condition on Discharge: Good Activity: Per Instructions section Activity Comment: No lifting left arm above shoulder or behind neck for 6 weeks Lifting: No more than 10 pounds Lifting Comment: May use right arm unrestricted Bathing: Keep incision dry Bathing Comment: Keep wound dry and steri-strip intact until f/u in 1 week Exercise/Sports: Rest today Driving/Machine Use: Resume 1 day after discharge Non-emergency contact: Cp Bleacher Operator Call non-emergency contact if: you have any medication questions, your symptoms worsen, you have a fever, your wound has increased redness and your wound has increased drainage Follow-up/Referrals: Carlito Wynn DO [Primary Care Provider] - 07/08/23 11:30 am (Follow up scheduled on 07/08/23 @ 11:30) Diet: Heart Healthy Addtl Attending Provider Instructions: none Pending Studies at Discharge: No Stand-Alone Forms: [facility], Smoking Cessation Medications and DC Order Prescriptions: Continued allopurinol 300 mg tablet 300 mg PO QAM Qty: 90 3RF atorvastatin 40 mg tablet 40 mg PO QAM Qty: 90 3RF famotidine 20 mg tablet 20 mg PO QAM PRN (Reason: Acid Reflux) Qty: 30 3RF lisinopril 10 mg tablet 10 mg PO DAILY Qty: 90 3RF vitamin B complex Tablet 1 tab PO DAILY Rx Instructions: Started taking in addition to B12 daily. aspirin 81 mg tablet,delayed release (DR/EC) 81 mg PO DAILY PRN (Reason: .prevent blood clots) Discharge Orders: Discharge Order (Routine); Ordered 07/05/23 Ordered By: Dakotah Ma Admission Data Admit Date/Time: 07/04/23 13:10 Attending Provider: Dakotah Ma Admit Provider: Dakotah Ma Primary Care Provider: Carlito Wynn Other Interventions: Discharge Summary Assessment (RN) Last Done: 07/05/23 09:39 Coding Level of Care Code 61433 IN/OBS DISCH 30 MIN/LESS Diagnoses Second degree AV block, Mobitz type II I44.1
--- NOTE | 2023-07-05 09:12 | XRay Report ---
XR chest 2V PA/lateral CLINICAL HISTORY: Pacemaker insertion. COMPARISON STUDY: Chest radiograph May 24, 2022. Chest CT August 01, 2022. FINDINGS: There is no pneumothorax following placement of a dual-lead left subclavian pacemaker. Lead tips project over the right atrial appendage and right ventricle. Cardiomediastinal silhouette is st able. There is no evidence for pulmonary edema. Several old right rib fractures are incidentally note d. IMPRESSION: No pneumothorax following placement of a left subclavian pacemaker. ACT 112: Negative or not required by law. Electronically signed by: Carson Alvarado M.D. 07/05/2023 9:10 AM
--- NOTE | 2023-07-05 15:07 | Electrocardiogram Report ---
Test Reason : Blood Pressure : / mmHG Vent. Rate : 060 BPM Atrial Rate : 060 BPM P-R Int : 138 ms QRS Dur : 130 ms QT Int : 468 ms P-R-T Axes : 000 -34 104 degrees QTc Int : 468 ms AV dual-paced rhythm Abnormal ECG When compared with ECG of 24-MAY-2022 16:15, Electronic ventricular pacemaker has replaced Sinus rhythm Confirmed by Henry Parker ([id number]) on 07/05/2023 3:06:43 PM Referred By: Tk Ma Confirmed By:Henry Parker
== END 2023-07-05 10:13 | disposition home or self-care (01) | DRG 244 ==
LOC: EP 12:40 → 2S 13:10 → INTOOBSV 13:10

== ENCOUNTER 2023-11-29 19:49 | Inpatient (IN) ==
[2023-11-29] MEDS ORDERED: SODIUM CHLORIDE 0.9% 500 ML IV SCH (20:45)
--- NOTE | 2023-11-29 20:47 | Emergency Department Note ---
Impression & Plan Acute confusion, Agitation, COVID-19, Leukocytosis, Urinary frequency ED Provider Note NAME: CHRISTINA NAJERA AGE: 78 SEX: M : 1945 ARRIVES VIA: Ambulance INFORMANT: [Patient][] ED PROVIDER(S): [Wild Aguero MD] CHIEF COMPLAINT: Confusion HISTORY OF PRESENT ILLNESS: The patient is a 78-year-old male who presents to the ER with 2 days of confusion. He is doing unusual things, not making sense, forgetting which is his right and left. His also noticed increased urination in the last 24 hours. There has been a cough for about 24 hours. No fever, no complaints of chest pain or headache or abdominal pain. No nausea or vomiting. The patient has not fallen. The patient is a poor historian and really does not know why he is here. PMHx/PSHx/Social Hx: See Below PHYSICAL EXAM: GENERAL: Patient is in no acute distress. HEENT: No acute trauma, normocephalic atraumatic, mucous membranes moist, no nasal congestion. NECK: No stridor, no adenopathy, no meningismus, trachea is midline. LUNGS: Clear to auscultation bilaterally, no wheeze, no rhonchi, breath sounds equal. HEART: Without murmurs gallops or rubs, regular rate and rhythm. ABDOMEN: Soft, nontender, no peritonitis. EXTREMITIES: No cyanosis, full range of motion of all the joints without pain or difficulty. Mild bilateral pedal edema. NEUROLOGIC: Awake and alert, no focal motor deficits, poor historian. SKIN: No jaundice, no diaphoresis. DIFFERENTIAL DIAGNOSIS: Liver or renal failure, dehydration, viral illness, intracranial bleeding, stroke, UTI, among others. EMERGENCY DEPARTMENT PROCEDURES: MEDICAL DECISION MAKING: There is a mild leukocytosis, this could be consistent with infection. A very mild anemia was seen. There was a normal platelet count. Sodium slightly low but not in need of emergent correction. No renal failure. Lactic acid level was elevated consistent with dehydration and or potentially infection. No concerning liver enzyme elevation. The patient appeared to be in a euthyroid state. ECG shows a ventricular pacemaker, no obvious ischemia. Cardiac enzyme testing x 1 is slightly elevated. This troponin elevation could be secondary to cardiac injury or potentially just mismatch. Chest x-ray does not show mediastinal widening, pneumonia or pneumothorax. Urinalysis does not show findings of infection. Brain CT shows no acute bleed or mass effect. COVID test returned positive, influenza and RSV test returned negative. The patient required 2 mg of IV Haldol to help with relaxation and agitation. He was given a liter of IV saline for hydration. He received IV ceftriaxone as empiric antibiotic coverage. Patient presents with increased confusion. He has a leukocytosis. There is an elevated lactic acid level and troponin value. He was found to be COVID- positive. I suspect the confusion is secondary to his viral illness. He has some baseline dementia and things are now worse, likely, a result of his COVID infection. Given the circumstances, I do think a hospital stay is warranted. I spoke with the patient and case management, I spoke with the . The on-call hospitalist was consulted. Prior/Outside records/notes reviewed: Today's EMS notes describing his complaints and transport to this ED. ECG per my interpretation: Indication was weakness. The ECG shows a ventricular pacemaker with a rate of 87. There is some baseline artifact. No concerning ST elevation, no PVCs. The QTc is 570. Continuous Cardiac Monitoring per my interpretation: An order was placed for continuous cardiac monitoring. The monitor shows a rate of 90 with a ventricular pacemaker. Imaging/x-ray results per my interpretation: Chest x-ray does not show mediastinal widening, pneumonia or pneumothorax. Chronic Medical/Social conditions affecting care: Advanced age. Care/Management discussed with: Case management, the on-call hospitalist. Level of care consideration(s): After review of the information above and other included data: --I believe the patient requires escalation of care to admission DISPOSITION: Admission Past Med/Surg History Medical History Gait abnormality Multiple fractures of ribs of right side GATO (acute kidney injury) Encounter for pre-operative examination Hx of hiatal hernia Mild cognitive disorder Lumbar radiculopathy Gout No recent issues Osteoarthritis Hyperlipidemia Hypertension GERD (gastroesophageal reflux disease) Well controlled and stable Surgical History History of bilateral knee replacement History of carpal tunnel release History of colonoscopy History of total right knee replacement History of ventral hernia repair History of wisdom tooth extraction S/P cholecystectomy Status post total left knee replacement Family History Mother Myocardial infarction Father Lung cancer Denies family history of Ovarian cancer Prostate cancer Breast cancer Colorectal cancer Social History Smoking Status: Never smoker Second Hand Exposure: No; Do You Dip or Chew Tobacco: No; Hx Alcohol Use: No Hx Substance Use: No Preferred Language: Thai Communication Ability: Effective Communication Ability Comment: confused Visual Impairment: Diminished Hearing Ability: Normal Sound Engineer Audio Control Required: No Beliefs That Will Affect Care: None marital status: Current Living Situation: Spouse current occupational status: retired How many Children do You have: 0 How many Children do You have Comment: none Feels Safe at Home: Yes Childhood Exposure to Second-Hand Smoke: No caffeine: Yes (drinks coffee ) Dental Care, Regularly: Yes Physical Activity Frequency: 1-2 Times per Week Physical Activity Frequency Comment: sometimes 3 times a week Seatbelt Use: always Sunscreen Use: Yes Assistive Devices: Walker Allergies Allergies Allergy/AdvReac Type Severity Reaction Status Date / Time clindamycin Allergy Intermediate Rash Verified 11/29/23 21:25 Penicillins Allergy Intermediate RASH Verified 11/29/23 21:25 shellfish derived Allergy Intermediate Rash-WITH Verified 11/29/23 21:25 SHELLFISH oxycodone AdvReac Intermediate confusion Verified 11/29/23 21:25 Home Meds Home Medications Medication Instructions Recorded Confirmed vitamin B complex 1 tab PO DAILY 05/28/22 11/29/23 aspirin 81 mg tablet,delayed 81 mg PO DAILY PRN .prevent blood 06/27/23 11/29/23 release clots Previous Rx's Medication Instructions Recorded allopurinol 300 mg tablet 300 mg PO QAM #90 tabs 08/28/22 atorvastatin 40 mg tablet 40 mg PO QAM #90 tabs 08/28/22 famotidine 20 mg tablet 20 mg PO QAM PRN Acid Reflux #30 08/28/22 tabs lisinopril 10 mg tablet 10 mg PO DAILY #90 tabs 10/14/23 Results & Data (ED) Vital Signs Vital Signs - 24 hr 11/29/23 20:06 11/29/23 21:25 11/29/23 21:38 Temperature 37.2 C Temperature Source Oral Pulse Rate 100 H 87 91 H Respiratory Rate 16 24 Respiratory Effort / Characteristics Non-Labored Spontaneous Respiratory Depth Normal Respiratory Pattern Regular Blood Pressure 147/67 H Blood Pressure Mean 93 Pulse Oximetry 99 98 Oxygen Delivery Method Room Air Oxygen Flow Rate Sepsis Recent Fever Within 48 Hours No Sepsis New/Unexplained Change in Mental Status Yes Sepsis Action Taken by Nursing No Action Required 11/29/23 23:13 11/29/23 23:18 Temperature Temperature Source Pulse Rate 90 Respiratory Rate 24 Respiratory Effort / Characteristics Respiratory Depth Respiratory Pattern Blood Pressure 151/80 H Blood Pressure Mean 103 Pulse Oximetry 96 97 Oxygen Delivery Method Room Air Oxygen Flow Rate 0 Sepsis Recent Fever Within 48 Hours Sepsis New/Unexplained Change in Mental Status Sepsis Action Taken by Shelter Medications Current Medication List: was personally reviewed by me Laboratory Data Attestation: I reviewed the patient's lab results. 11/29/23 21:40 11/29/23 22:39 Lab Results 11/29/23 11/29/23 11/29/23 Range/Units 21:40 22:39 22:55 WBC 11.09 H (4.8-10.8) K/ul RBC 4.32 L (4.70-6.10) M/uL Hgb 13.9 L (14.0-18.0) g/dl Hct 39.4 L (42.0-52.0) % MCV 91.2 (80.0-100.0) fL MCH 32.2 (25.0-34.0) pg MCHC 35.3 (32.0-36.0) g/dL RDW Std Deviation 41.2 (36.4-46.3) fL RDW Coeff of Andi 12.4 (11.5-14.5) % Plt Count 230 (130-400) K/uL MPV 10.7 (9.4-12.4) fL Immature Gran % (Auto) 0.4 % Neut % (Auto) 76.5 % Lymph % (Auto) 10.7 % [place] % (Auto) 11.5 % Eos % (Auto) 0.4 % Baso % (Auto) 0.5 % Neut # (Auto) 8.48 H (1.40-6.50) K/uL Lymph # (Auto) 1.19 L (1.20-3.40) K/uL [place] # (Auto) 1.28 H (0.11-0.59) K/uL Eos # (Auto) 0.04 (0.00-0.50) K/uL Baso # (Auto) 0.06 (0.00-0.20) K/uL Immature Gran # (Auto) 0.04 (0.01-0.20) K/uL Sodium 134 L (136-145) mmol/L Potassium TNP 3.8 Chloride 100 (98-107) mmol/L Carbon Dioxide 24 (21-32) mmol/L Anion Gap 10 (3-11) BUN 20 (6-23) mg/dl Creatinine 1.08 (0.6-1.4) mg/dl Est Cr Clr Drug Dosing Not Reportable Est GFR ( Amer) 75.3 ml/min Est GFR (Non-Af Amer) 64.9 ml/min BUN/Creatinine Ratio 18.5 (10-20) Glucose 65 L (70-99(Fasting)) mg/dl Lactate 2.5 H* (0.4-2.0) mmol/L Calcium 9.6 (8.6-10.3) mg/dl Magnesium 1.8 (1.7-2.4) mg/dl Total Bilirubin 0.8 (0.2-1.0) mg/dl AST TNP 26 ALT 15 (7-52) U/L Alkaline Phosphatase 86 (34-104) U/L Ammonia TNP 22.0 Troponin I High Sens 24.3 H (0-20) pg/ml Total Protein 7.6 (6.0-8.3) gm/dl Albumin 4.2 (3.4-5.0) gm/dl Globulin 3.4 (2.5-4.0) gm/dl Albumin/Globulin Ratio 1.2 (0.9-2) TSH 1.259 (0.300-4.500) uIu/ml Urine Color Yellow Urine Appearance Clear (Clear) Urine pH 5.5 (4.5-7.5) Ur Specific [place] 1.009 (1.000-1.030) Urine Protein Negative (Negative) Urine Glucose (UA) Negative (Negative) Urine Ketones Negative (Negative) Urine Blood Negative (Negative) Urine Nitrite Negative (Negative) Urine Bilirubin Negative (Negative) Urine Urobilinogen Negative (Negative) Ur Leukocyte Esterase Negative (Negative) SARS-CoV-2 (PCR) (Negative) Influenza Type A (PCR) (Neg) Influenza Type B (PCR) (Neg) RSV (RT-PCR) (Neg) 11/29/23 11/30/23 Range/Units 23:48 Unknown WBC (4.8-10.8) K/ul RBC (4.70-6.10) M/uL Hgb (14.0-18.0) g/dl Hct (42.0-52.0) % MCV (80.0-100.0) fL MCH (25.0-34.0) pg MCHC (32.0-36.0) g/dL RDW Std Deviation (36.4-46.3) fL RDW Coeff of Andi (11.5-14.5) % Plt Count (130-400) K/uL MPV (9.4-12.4) fL Immature Gran % (Auto) % Neut % (Auto) % Lymph % (Auto) % [place] % (Auto) % Eos % (Auto) % Baso % (Auto) % Neut # (Auto) (1.40-6.50) K/uL Lymph # (Auto) (1.20-3.40) K/uL [place] # (Auto) (0.11-0.59) K/uL Eos # (Auto) (0.00-0.50) K/uL Baso # (Auto) (0.00-0.20) K/uL Immature Gran # (Auto) (0.01-0.20) K/uL Sodium (136-145) mmol/L Potassium Chloride (98-107) mmol/L Carbon Dioxide (21-32) mmol/L Anion Gap (3-11) BUN (6-23) mg/dl Creatinine (0.6-1.4) mg/dl Est Cr Clr Drug Dosing Est GFR ( Amer) ml/min Est GFR (Non-Af Amer) ml/min BUN/Creatinine Ratio (10-20) Glucose (70-99(Fasting)) mg/dl Lactate (0.4-2.0) mmol/L Calcium (8.6-10.3) mg/dl Magnesium (1.7-2.4) mg/dl Total Bilirubin (0.2-1.0) mg/dl AST ALT (7-52) U/L Alkaline Phosphatase (34-104) U/L Ammonia Troponin I High Sens 30.3 H (0-20) pg/ml Total Protein (6.0-8.3) gm/dl Albumin (3.4-5.0) gm/dl Globulin (2.5-4.0) gm/dl Albumin/Globulin Ratio (0.9-2) TSH (0.300-4.500) uIu/ml Urine Color Urine Appearance (Clear) Urine pH (4.5-7.5) Ur Specific [place] (1.000-1.030) Urine Protein (Negative) Urine Glucose (UA) (Negative) Urine Ketones (Negative) Urine Blood (Negative) Urine Nitrite (Negative) Urine Bilirubin (Negative) Urine Urobilinogen (Negative) Ur Leukocyte Esterase (Negative) SARS-CoV-2 (PCR) POSITIVE A* (Negative) Influenza Type A (PCR) Negative (Neg) Influenza Type B (PCR) Negative (Neg) RSV (RT-PCR) Negative (Neg) Administered Medications Discontinued Medications Haloperidol Lactate (Haloperidol Lactate 5 Mg/Ml 1 Ml Vial) 2 mg IV NOW STA Stop: 11/29/23 22:32 Last Admin: 11/29/23 22:41 Dose: 2 mg Documented By: STEVE Sodium Chloride (Nss) 500 mls @ 999 mls/hr IV .Q31M ALEJANDRO Stop: 11/29/23 21:15 Last Infusion: 11/29/23 23:51 Dose: Infused Documented By: Admin: 11/29/23 21:58 Dose: 999 mls/hr Documented By: STEVE Ceftriaxone Sodium (Rocephin) 2,000 mg in 50 mls @ 100 mls/hr IV NOW STA Stop: 11/29/23 23:25 Last Infusion: 11/29/23 23:51 Dose: Infused Documented By: Admin: 11/29/23 23:07 Dose: 100 mls/hr Documented By: STEVE Imaging Data Radiologist's Impression: Head CT 11/29/23 20:40 Exam(s): CT HEAD Without Contrast EXAM: CT Head Without Intravenous Contrast CLINICAL HISTORY: Reason for exam: confusion. TECHNIQUE: Axial computed tomography images of the head/brain without intravenous contrast. CTDI is 36.67 mGy and DLP is 1406.31 mGy-cm. Automated exposure control was utilized for the study. A dose lowering technique was utilized adhering to the principles of ALARA. COMPARISON: 07/26/2023 FINDINGS: Brain: Mild periventricular white matter changes stable from prior exam. No hemorrhage. 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 Findings are stable from prior study. Bones/joints: Unremarkable. No acute fracture. Soft tissues: Unremarkable. Sinuses: Unremarkable as visualized. No acute sinusitis. Mastoid air cells: Unremarkable as visualized. No mastoid effusion. 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 Findings are stable from prior study. Electronically signed by: Michael Fontaine M.D. 11/30/23 00:35 AM Discharge Plan Visit Data Chief Complaint: Confusion Stated Complaint: CONFUSION, MENTAL STATUS CHANGE ED Provider: Wild Aguero Discharge Problem: Acute confusion, Agitation, COVID-19, Leukocytosis, Urinary frequency Patient Disposition: Admitted As Inpatient Condition: Fair Forms Stand Alone Forms: [facility]aleo Prescriptions Prescriptions: No Action allopurinol 300 mg tablet 300 mg PO QAM Qty: 90 3RF atorvastatin 40 mg tablet 40 mg PO QAM Qty: 90 3RF famotidine 20 mg tablet 20 mg PO QAM PRN (Reason: Acid Reflux) Qty: 30 3RF lisinopril 10 mg tablet 10 mg PO DAILY Qty: 90 3RF vitamin B complex Tablet 1 tab PO DAILY Rx Instructions: Started taking in addition to B12 daily. aspirin 81 mg tablet,delayed release (DR/EC) 81 mg PO DAILY PRN (Reason: .prevent blood clots) Referrals Referrals: Carlito Wynn DO [Primary Care Provider] - Discharge Problem: Leukocytosis Qualifiers: Leukocytosis type: unspecified Qualified Code(s): D72.829 - Elevated white blood cell count, unspecified
[2023-11-29 22:19] LABS: Basophils # (auto) 0.06 K/uL (0.00-0.20); Basophils % (auto) 0.5 %; Eosinophils # (auto) 0.04 K/uL (0.00-0.50); Eosinophils % (auto) 0.4 %; Hematocrit (blood only) 39.4 % (42.0-52.0); Hemoglobin 13.9 g/dl (14.0-18.0); Immature Granulocytes # (auto) 0.04 K/uL (0.01-0.20); Immature Granulocytes % (auto) 0.4 %; Lymphocytes # (auto) 1.19 K/uL (1.20-3.40); Lymphocytes % (auto) 10.7 %; Mean Corpuscular Hemoglobin 32.2 pg (25.0-34.0); Mean Corpuscular Hgb Conc 35.3 g/dL (32.0-36.0); Mean Corpuscular Volume 91.2 fL (80.0-100.0); Mean Platelet Volume 10.7 fL (9.4-12.4); Monocytes # (auto) 1.28 K/uL (0.11-0.59); Monocytes % (auto) 11.5 %; Neutrophils # (auto) 8.48 K/uL (1.40-6.50); Neutrophils % (auto) 76.5 %; Platelet Count 230 K/uL (130-400); RDW Coefficient of Variation 12.4 % (11.5-14.5); RDW Standard Deviation 41.2 fL (36.4-46.3); Red Blood Count 4.32 M/uL (4.70-6.10); White Blood Count 11.09 K/ul (4.8-10.8)
[2023-11-29] MEDS ORDERED: HALOPERIDOL LACTATE 5 MG/ML 1 ML VIAL IV STA (22:31)
[2023-11-29 22:35] LABS: Alanine Aminotransferase 15 U/L (7-52); Albumin Globulin Ratio 1.2 (0.9-2); Albumin Level 4.2 gm/dl (3.4-5.0); Alkaline Phosphatase 86 U/L (34-104); Anion Gap 10 (3-11); BUN Creatinine Ratio 18.5 (10-20); Bilirubin,Total 0.8 mg/dl (0.2-1.0); Blood Urea Nitrogen 20 mg/dl (6-23); Calcium 9.6 mg/dl (8.6-10.3); Carbon Dioxide 24 mmol/L (21-32); Chloride 100 mmol/L (98-107); Est GFR (African American) 75.3 ml/min; Est GFR (Non-African American) 64.9 ml/min; Globulin 3.4 gm/dl (2.5-4.0); Glucose 65 mg/dl (70-99(Fasting)); Magnesium 1.8 mg/dl (1.7-2.4); Sodium 134 mmol/L (136-145); Total Protein 7.6 gm/dl (6.0-8.3)
[2023-11-29 22:42] LABS: Troponin I High Sensitivity 24.3 pg/ml (0-20)
[2023-11-29 22:51] LABS: Thyroid Stimulating Hormone 1.259 uIu/ml (0.300-4.500)
[2023-11-29] MEDS ORDERED: cefTRIAXone SODIUM 2,000 MG/50 ML BAG IV STA (22:56)
[2023-11-29 23:02] LABS: Potassium 3.8 mmol/L (3.5-5.1)
[2023-11-29 23:33] LABS: Appearance Urine Clear (Clear); Bilirubin Urine Negative (Negative); Blood Urine Negative (Negative); Color Urine Yellow; Glucose Urine UA Negative (Negative); Ketones Urine Negative (Negative); Leukocyte Esterase Urine Negative (Negative); Nitrite Urine Negative (Negative); Protein Urine Negative (Negative); Specific Gravity Urine 1.009 (1.000-1.030); Urobilinogen Urine Negative (Negative); pH Urine 5.5 (4.5-7.5)
[2023-11-30 00:25] LABS: Troponin I High Sensitivity 30.3 pg/ml (0-20)
[2023-11-30] MEDS ORDERED: SODIUM CHLORIDE 0.9% 500 ML IV ONE (00:29)
--- NOTE | 2023-11-30 00:36 | CT Scan Report ---
Exam(s): CT HEAD Without Contrast EXAM: CT Head Without Intravenous Contrast CLINICAL HISTORY: Reason for exam: confusion. TECHNIQUE: Axial computed tomography images of the head/brain without intravenous contrast. CTDI is 36.67 mGy and DLP is 1406.31 mGy-cm. Automated exposure control was utilized for the study. A dose lowering technique was utilized adhering to the principles of ALARA. COMPARISON: 07/26/2023 FINDINGS: Brain: Mild periventricular white matter changes stable from prior exam. No hemorrhage. 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 Findings are stable from prior study. Bones/joints: Unremarkable. No acute fracture. Soft tissues: Unremarkable. Sinuses: Unremarkable as visualized. No acute sinusitis. Mastoid air cells: Unremarkable as visualized. No mastoid effusion. 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 Findings are stable from prior study. Electronically signed by: Michael Fontaine M.D. 11/30/23 00:35 AM
--- NOTE | 2023-11-30 01:05 | History & Physical Report ---
Date of Service November 30, 2023 Assessment & Plan (1) COVID-19: Plan: 78yo male with history of HTN, HLP, cognitive impairment presenting with several days of worsening confusion. Labs significant for mildly elevated Lacate at 2.5, Glucose of 65, WBC=11.09 Covid-19 positive. No respiratory complaints. Adequate oxygenation on room air. Suspect acute Covid-19 infection with encephalopathy as cause of patient's worsening confusion -Admit to medical -Maintain isolation precautions -Oxygen saturations adequate - no indication for treatment with Dexamethasone or Remdesivir -Tylenol PRN -Will order fingersticks qACHS as patient's blood sugar low at 65 on arrival -Order EtOH level -Trend troponin. Patient does not endorse chest pain (2) Hypertension: Plan: Chronic -Continue Lisinopril (3) Hyperlipidemia: Plan: Chronic -Continue Atorvastatin History of Present Illness Chief Complaint: confusion Primary Care Provider: Carlito Wynn DO Francisco Guzman is a 78yo male with history of HTN, HLP, GERD, CKD presenting with confusion. Majority of history obtained from patient's as patient is confused and unable to provide details of events prior to arrival. His reports that patient has had worsening mental state for the last several weeks with acute worsening over the last two days. He has been getting confused about his right and left and having difficulty following commands. He developed a cough today as well as a headache. His called 911. No sick contacts or recent travel. No tick bites. ER Course: Ceftriaxone Haldol 2mg IV NSS x 500mL Allergies Allergy/AdvReac Type Severity Reaction Status Date / Time clindamycin Allergy Intermediate Rash Verified 11/29/23 21:25 Penicillins Allergy Intermediate RASH Verified 11/29/23 21:25 shellfish derived Allergy Intermediate Rash-WITH Verified 11/29/23 21:25 SHELLFISH oxycodone AdvReac Intermediate confusion Verified 11/29/23 21:25 Home Medications Medication Instructions Recorded Confirmed Type vitamin B complex 1 tab PO DAILY 05/28/22 11/29/23 History allopurinol 300 mg tablet 300 mg PO QAM #90 tabs 08/28/22 11/29/23 Rx atorvastatin 40 mg tablet 40 mg PO QAM #90 tabs 08/28/22 11/29/23 Rx famotidine 20 mg tablet 20 mg PO QAM PRN Acid Reflux #30 08/28/22 11/29/23 Rx tabs aspirin 81 mg tablet,delayed 81 mg PO DAILY PRN .prevent blood 06/27/23 11/29/23 History release clots lisinopril 10 mg tablet 10 mg PO DAILY #90 tabs 10/14/23 11/29/23 Rx Past Med/Surg History Medical History Gait abnormality Multiple fractures of ribs of right side GATO (acute kidney injury) Encounter for pre-operative examination Hx of hiatal hernia Mild cognitive disorder Lumbar radiculopathy Gout No recent issues Osteoarthritis Hyperlipidemia Hypertension GERD (gastroesophageal reflux disease) Well controlled and stable Surgical History History of bilateral knee replacement Status post total left knee replacement History of carpal tunnel release bilat History of colonoscopy History of wisdom tooth extraction History of total right knee replacement History of ventral hernia repair S/P cholecystectomy Family History Mother Myocardial infarction Father Lung cancer Denies family history of Ovarian cancer Prostate cancer Breast cancer Colorectal cancer Social History Smoking Status: Never smoker Second Hand Exposure: No; Do You Dip or Chew Tobacco: No; Hx Alcohol Use: No Hx Substance Use: No Preferred Language: Maltese Communication Ability: Effective Communication Ability Comment: confused Visual Impairment: Diminished Hearing Ability: Normal Laborer Laboratory Required: No Beliefs That Will Affect Care: None marital status: Current Living Situation: Spouse current occupational status: retired How many Children do You have: 0 How many Children do You have Comment: none Feels Safe at Home: Yes Childhood Exposure to Second-Hand Smoke: No caffeine: Yes (drinks coffee ) Dental Care, Regularly: Yes Physical Activity Frequency: 1-2 Times per Week Physical Activity Frequency Comment: sometimes 3 times a week Seatbelt Use: always Sunscreen Use: Yes Assistive Devices: Walker Review of Systems Review of Systems: Unobtainable due to cognitive status Physical Exam Physical Exam: General: patient resting comfortably, confused, oriented to self only. Fo llowing some commands and answering some question Skin: warm, dry, intact, no rashes or lesions HEENT: NC/AT, PERRL, EOMI, anicteric sclera, conjunctiva without injection, external ear normal to inspection and nontender, nares patent, moist mucus membranes, dentition intact, no oropharyngeal lesions, neck supple, trachea midline, no LAD, no thyromegaly, no JVD Heart: +S1/S2, regular, no m/r/g Lungs: equal air entry bilaterally, no rales/rhonchi/wheezes Abd: +BS, soft, NT/ND, no masses/organomegaly/ascites Ext: warm, 2+ pulses in UE/LE bilaterally, no clubbing/cyanosis or edema Neuro: speech clear, following some commands, strength 5/5 in UE/LE bilaterally Results & Data Results & Data Vital Signs (Past 12 Hours) Vital Signs Temp Pulse Resp BP Pulse Ox O2 Del Method O2 Flow Rate 11/29/23 23:18 97 Room Air 0 11/29/23 23:13 90 24 151/80 H 96 11/29/23 21:38 91 H 11/29/23 21:25 87 24 147/67 H 98 11/29/23 20:06 37.2 C 100 H 16 99 Room Air Laboratory Results Laboratory Results WBC 11.09 K/ul (4.8-10.8) H 11/29/23 21:40 RBC 4.32 M/uL (4.70-6.10) L 11/29/23 21:40 Hgb 13.9 g/dl (14.0-18.0) L 11/29/23 21:40 Hct 39.4 % (42.0-52.0) L 11/29/23 21:40 MCV 91.2 fL (80.0-100.0) 11/29/23 21:40 MCH 32.2 pg (25.0-34.0) 11/29/23 21:40 MCHC 35.3 g/dL (32.0-36.0) 11/29/23 21:40 RDW Std Deviation 41.2 fL (36.4-46.3) 11/29/23 21:40 RDW Coeff of Andi 12.4 % (11.5-14.5) 11/29/23 21:40 Plt Count 230 K/uL (130-400) 11/29/23 21:40 MPV 10.7 fL (9.4-12.4) 11/29/23 21:40 Immature Gran % (Auto) 0.4 % 11/29/23 21:40 Neut % (Auto) 76.5 % 11/29/23 21:40 Lymph % (Auto) 10.7 % 11/29/23 21:40 Preble % (Auto) 11.5 % 11/29/23 21:40 Eos % (Auto) 0.4 % 11/29/23 21:40 Baso % (Auto) 0.5 % 11/29/23 21:40 Neut # (Auto) 8.48 K/uL (1.40-6.50) H 11/29/23 21:40 Lymph # (Auto) 1.19 K/uL (1.20-3.40) L 11/29/23 21:40 Preble # (Auto) 1.28 K/uL (0.11-0.59) H 11/29/23 21:40 Eos # (Auto) 0.04 K/uL (0.00-0.50) 11/29/23 21:40 Baso # (Auto) 0.06 K/uL (0.00-0.20) 11/29/23 21:40 Immature Gran # (Auto) 0.04 K/uL (0.01-0.20) 11/29/23 21:40 Sodium 134 mmol/L (136-145) L 11/29/23 21:40 Potassium 3.8 mmol/L (3.5-5.1) 11/29/23 22:39 Chloride 100 mmol/L (98-107) 11/29/23 21:40 Carbon Dioxide 24 mmol/L (21-32) 11/29/23 21:40 Anion Gap 10 (3-11) 11/29/23 21:40 BUN 20 mg/dl (6-23) 11/29/23 21:40 Creatinine 1.08 mg/dl (0.6-1.4) 11/29/23 21:40 Est Cr Clr Drug Dosing Not Reportable 11/29/23 21:40 Est GFR ( Amer) 75.3 ml/min 11/29/23 21:40 Est GFR (Non-Af Amer) 64.9 ml/min 11/29/23 21:40 BUN/Creatinine Ratio 18.5 (10-20) 11/29/23 21:40 Glucose 65 mg/dl (70-99(Fasting)) L 11/29/23 21:40 Lactate 2.5 mmol/L (0.4-2.0) H* 11/29/23 22:39 Calcium 9.6 mg/dl (8.6-10.3) 11/29/23 21:40 Magnesium 1.8 mg/dl (1.7-2.4) 11/29/23 21:40 Total Bilirubin 0.8 mg/dl (0.2-1.0) 11/29/23 21:40 AST 26 U/L (13-39) 11/29/23 22:39 ALT 15 U/L (7-52) 11/29/23 21:40 Alkaline Phosphatase 86 U/L (34-104) 11/29/23 21:40 Ammonia 22.0 umol/L (18-72) 11/29/23 22:39 Troponin I High Sens 30.3 pg/ml (0-20) H 11/29/23 23:48 Total Protein 7.6 gm/dl (6.0-8.3) 11/29/23 21:40 Albumin 4.2 gm/dl (3.4-5.0) 11/29/23 21:40 Globulin 3.4 gm/dl (2.5-4.0) 11/29/23 21:40 Albumin/Globulin Ratio 1.2 (0.9-2) 11/29/23 21:40 TSH 1.259 uIu/ml (0.300-4.500) 11/29/23 21:40 Urine Color Yellow 11/29/23 22:55 Urine Appearance Clear (Clear) 11/29/23 22:55 Urine pH 5.5 (4.5-7.5) 11/29/23 22:55 Ur Specific [place] 1.009 (1.000-1.030) 11/29/23 22:55 Urine Protein Negative (Negative) 11/29/23 22:55 Urine Glucose (UA) Negative (Negative) 11/29/23 22:55 Urine Ketones Negative (Negative) 11/29/23 22:55 Urine Blood Negative (Negative) 11/29/23 22:55 Urine Nitrite Negative (Negative) 11/29/23 22:55 Urine Bilirubin Negative (Negative) 11/29/23 22:55 Urine Urobilinogen Negative (Negative) 11/29/23 22:55 Ur Leukocyte Esterase Negative (Negative) 11/29/23 22:55 SARS-CoV-2 (PCR) POSITIVE (Negative) A* 11/30/23 Unknown Influenza Type A (PCR) Negative (Neg) 11/30/23 Unknown Influenza Type B (PCR) Negative (Neg) 11/30/23 Unknown RSV (RT-PCR) Negative (Neg) 11/30/[address] 11/29/23 20:40 Exam(s): CT HEAD Without Contrast EXAM: CT Head Without Intravenous Contrast CLINICAL HISTORY: Reason for exam: confusion. TECHNIQUE: Axial computed tomography images of the head/brain without intravenous contrast. CTDI is 36.67 mGy and DLP is 1406.31 mGy-cm. Automated exposure control was utilized for the study. A dose lowering technique was utilized adhering to the principles of ALARA. COMPARISON: 07/26/2023 FINDINGS: Brain: Mild periventricular white matter changes stable from prior exam. No hemorrhage. 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 Findings are stable from prior study. Bones/joints: Unremarkable. No acute fracture. Soft tissues: Unremarkable. Sinuses: Unremarkable as visualized. No acute sinusitis. Mastoid air cells: Unremarkable as visualized. No mastoid effusion. 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 Findings are stable from prior study. Electronically signed by: Michael Fontaine M.D. 11/30/23 00:35 AM PG Care Time/CCT Total # of Minutes Spent Total Time Spent with Patient: Total time spent is greater than 50% in coordination of care (as documented) at patient's floor/unit and/or counseling patient: Coding Level of Care Code 70937 INT INP/OBS CARE 2/55MIN Diagnoses COVID-19 U07.1 Hypertension I10 Hypertension type: primary hypertension Hyperlipidemia E78.5 (2) Hypertension Hypertension type: primary hypertension Qualified Code(s): I10 - Essential (primary) hypertension
[2023-11-30 01:15] LABS: Influenza A virus by PCR Negative (Neg); Influenza B virus by PCR Negative (Neg); RSV by PCR Negative (Neg)
[2023-11-30 01:31] LABS: SARS CoV2 RNA(COVID-19) Ceph POSITIVE (Negative)
[2023-11-30] MEDS ORDERED: OLANZapine ZYDIS 5 MG ORALLY DIS. TAB PO STA (01:46)
[2023-11-30] MEDS ORDERED: GLUCOSE 10 TAB/TUBE PO PRN (03:10)
[2023-11-30] MEDS ORDERED: GLUCAGON FOR INJ 1 MG VIAL SQ PRN (03:10)
[2023-11-30] MEDS ORDERED: DEXTROSE 50% 50 ML SYRINGE IV PRN (03:10)
[2023-11-30] MEDS ORDERED: LACTATED RINGER'S 1,000 ML IV SCH (03:10)
[2023-11-30] MEDS ORDERED: CARBOHYDRATES FOR HYPOGLYCEMIA PO PRN (03:10)
[2023-11-30] MEDS ORDERED: GLUCOSE 40% GEL 15 GM TUBE PO PRN (03:10)
[2023-11-30] MEDS ORDERED: ONDANSETRON INJ 2 MG/ML 2 ML VIAL IV PRN (03:10)
[2023-11-30 03:46] LABS: Phosphorus 2.6 mg/dl (2.5-4.9)
[2023-11-30] MEDS ORDERED: ENOXAPARIN 1 MG/KG SQ SCH (08:00)
--- NOTE | 2023-11-30 08:10 | XRay Report ---
XR chest 1V portable HISTORY: weakness COMPARISON: Chest 07/26/2023. FINDINGS: There are low lung volumes. No pneumothorax. No pleural effusions. The heart remains border line enlarged. No focal lung consolidations to suggest pneumonia. No evidence for pulmonary edema. Th ere is a left-sided dual-chamber pacemaker. Prior cholecystectomy. Old right-sided rib fractures agai n noted. IMPRESSION: No significant change compared to the prior study. No acute process. ACT 112: Negative or not required by law. Electronically signed by: Antonio Sweet M.D. 11/30/2023 8:08 AM
[2023-11-30] MEDS: ENOXAPARIN 80 MG/0.8 ML SYR SQ SCH ×2 (12:38→21:12)
[2023-11-30] MEDS: allopurinoL 300 MG TAB PO SCH (12:38)
[2023-11-30] MEDS: lisinopril 10 MG TAB PO SCH (12:38)
[2023-11-30] MEDS: ASPIRIN 81 MG ECTAB PO SCH (12:38)
[2023-11-30] MEDS: ATORVASTATIN 40 MG TAB PO SCH (12:38)
[2023-11-30] MEDS ORDERED: HALOPERIDOL LACTATE 5 MG/ML 1 ML VIAL IM STA (13:05)
--- NOTE | 2023-11-30 13:33 | Communication Note ---
Date of Service: November 30, 2023 Please refer to the H&P dictated by Dr. Rachelle Atkinson earlier this morning for details of presentation on admission. In brief, the patient presented with confusion that has been progressively getting worse over several weeks and acutely worse over the last 2 days. In the emergency room, he was noted to be positive for COVID-19 without any hypoxia, shortness of breath or any symptoms. The patient's encephalopathy is possibly related to COVID-19. He is going to be treated symptomatically. He has been getting agitated. He will be treated with Haldol as needed and Seroquel nightly. Troponin elevated. No chest pain. Spoke to the who agrees with conservative management and does not expect any heroic measures at this time. Confirmed CODE STATUS. Ordered echocardiogram. Started Lovenox therapeutic dose. EKG shows paced rhythm.
--- NOTE | 2023-11-30 15:54 | XCELERA ---
[id number] [id number]
--- NOTE | 2023-11-30 16:10 | Electrocardiogram Report ---
Test Reason : Blood Pressure : / mmHG Vent. Rate : 087 BPM Atrial Rate : 093 BPM P-R Int : 000 ms QRS Dur : 178 ms QT Int : 474 ms P-R-T Axes : 000 135 132 degrees QTc Int : 570 ms Ventricular-paced rhythm Abnormal ECG When compared with ECG of 26-JUL-2023 19:10, Vent. rate has increased BY 20 BPM Confirmed by Dakotah Ma ([id number]) on 11/30/2023 4:10:10 PM Referred By: REFERRED SELF Confirmed By:kT Ma
[2023-11-30] MEDS: ACETAMINOPHEN 325 MG TAB PO PRN (21:12)
[2023-11-30] MEDS: QUEtiapine FUMARATE 25 MG TABLET PO SCH (21:13)
[2023-12-01 07:43] LABS: Hematocrit (blood only) 42.3 % (42.0-52.0); Hemoglobin 14.1 g/dl (14.0-18.0); Mean Corpuscular Hemoglobin 31.5 pg (25.0-34.0); Mean Corpuscular Hgb Conc 33.3 g/dL (32.0-36.0); Mean Corpuscular Volume 94.4 fL (80.0-100.0); Mean Platelet Volume 10.4 fL (9.4-12.4); Platelet Count 179 K/uL (130-400); RDW Coefficient of Variation 12.3 % (11.5-14.5); RDW Standard Deviation 43.2 fL (36.4-46.3); Red Blood Count 4.48 M/uL (4.70-6.10); White Blood Count 11.37 K/ul (4.8-10.8)
[2023-12-01 08:21] LABS: Calcium 8.9 mg/dl (8.6-10.3); Potassium 3.9 mmol/L (3.5-5.1)
[2023-12-01 08:27] LABS: BUN Creatinine Ratio 23.1 (10-20); Est GFR (African American) 75.3 ml/min; Est GFR (Non-African American) 64.9 ml/min
[2023-12-01] MEDS: allopurinoL 300 MG TAB PO SCH (08:55)
[2023-12-01] MEDS: ASPIRIN 81 MG ECTAB PO SCH (08:55)
[2023-12-01] MEDS: ENOXAPARIN 80 MG/0.8 ML SYR SQ SCH ×2 (08:55→20:19)
[2023-12-01] MEDS: lisinopril 10 MG TAB PO SCH (08:55)
[2023-12-01] MEDS: ATORVASTATIN 40 MG TAB PO SCH (08:55)
[2023-12-01] MEDS: METOPROLOL TARTRATE 25 MG TAB PO SCH ×2 (10:40→20:20)
--- NOTE | 2023-12-01 12:42 | Hospitalist Progress Note ---
Date of Service December 01, 2023 Assessment & Plan (1) COVID-19: Plan: -Maintain isolation precautions Asymptomatic No hypoxia -Oxygen saturations adequate - no indication for treatment with Dexamethasone or Remdesivir -Tylenol PRN (2) Acute metabolic encephalopathy: Plan: Patient most likely has underlying dementia as he has been confused over the past several months Worse over the past few days possibly due to COVID Currently not agitated but has been agitated during this hospital stay, requiring Haldol as needed Patient is now on Seroquel nightly Per nurse, slept well through the night on Seroquel (3) Gait abnormality: Plan: Patient is generally weak Consult PT/OT (4) Elevated troponin: Plan: Troponin went up from 18-21-58-122. No complaints of chest pain EKG shows paced rhythm Echocardiogram shows no wall motion abnormalities or depressed EF does not want any aggressive intervention thus cardiology has not been consulted Patient is being treated with Lovenox therapeutic dose Continue aspirin Add metoprolol (patient has a pacemaker for heart block) (5) Hypertension: Plan: Chronic -Continue Lisinopril Metoprolol added at smallest dose Monitor blood pressure (6) Hyperlipidemia: Plan: Chronic -Continue Atorvastatin Plan DVT prophylaxis: Lovenox therapeutic dose. Will discontinue tomorrow after 48 hours Admission and Anticipated Discharge Date Admission Date: November 30, 2023 Subjective Patient remains confused. Overnight he slept well, per nurse. Not agitated at this time. Accompanied by his at the bedside Review of Systems Review of Systems: All systems reviewed & are unremarkable except as noted in Subjective Physical Exam Physical Exam: General: Awake, conversant but pleasantly confused. Heart: S1, S2/regular rate and rhythm, no murmur rubs or gallops Lungs: Clear to auscultation bilaterally. Normal effort Abdomen: Soft/nontender/nondistended. No hepatosplenomegaly Extremities: No clubbing/cyanosis. No edema Behavior: Appropriate, cooperative Results & Data Results & Data Vital Signs (Past 12 Hours) Vital Signs Temp Pulse Pulse Resp BP Pulse Ox O2 Del Method 12/01/23 11:24 36.8 C 81 20 110/66 99 Room Air 12/01/23 08:40 72 12/01/23 08:00 36.8 C 77 18 113/64 98 Room Air 12/01/23 02:38 36.4 C L 82 18 130/81 99 Room Air 12/01/23 00:48 126/75 Laboratory Results Abnormal lab results 11/30/23 12/01/23 Range/Units 12:36 07:02 WBC 11.37 H (4.8-10.8) K/ul RBC 4.48 L (4.70-6.10) M/uL Sodium 135 L (136-145) mmol/L BUN 25 H (6-23) mg/dl BUN/Creatinine Ratio 23.1 H (10-20) Glucose 63 L (70-99(Fasting)) mg/dl Troponin I High Sens 122.4 H* D (0-20) pg/ml PG Care Time/CCT Total # of Minutes Spent Total Time Spent with Patient: Total time spent is greater than 50% in coordination of care (as documented) at patient's floor/unit and/or counseling patient: Coding Level of Care Code 58178 SUB INP/OBS CARE 2/35MIN Diagnoses COVID-19 U07.1 Acute metabolic encephalopathy G93.41 Gait abnormality R26.9 Elevated troponin R79.89 Hypertension I10 Hypertension type: primary hypertension Hyperlipidemia E78.5 (5) Hypertension Hypertension type: primary hypertension Qualified Code(s): I10 - Essential (primary) hypertension
[2023-12-01] MEDS: QUEtiapine FUMARATE 25 MG TABLET PO SCH (20:20)
[2023-12-02] MEDS: ENOXAPARIN 80 MG/0.8 ML SYR SQ SCH (08:13)
[2023-12-02] MEDS: lisinopril 10 MG TAB PO SCH (08:14)
[2023-12-02] MEDS: allopurinoL 300 MG TAB PO SCH (08:14)
[2023-12-02] MEDS: ASPIRIN 81 MG ECTAB PO SCH (08:14)
[2023-12-02] MEDS: ATORVASTATIN 40 MG TAB PO SCH (08:14)
[2023-12-02] MEDS: METOPROLOL TARTRATE 25 MG TAB PO SCH ×2 (08:55→20:41)
--- NOTE | 2023-12-02 13:03 | Hospitalist Progress Note ---
Date of Service December 02, 2023 Assessment & Plan (1) COVID-19: Plan: -Maintain isolation precautions Asymptomatic No hypoxia -Oxygen saturations adequate - no indication for treatment with Dexamethasone or Remdesivir -Tylenol PRN (2) Acute metabolic encephalopathy: Plan: Patient most likely has underlying dementia as he has been confused over the past several months Worse over the past few days possibly due to COVID Currently not agitated but has been agitated during this hospital stay, requiring Haldol as needed Patient is now on Seroquel nightly to help with sleep-wake cycle. Per nurse, slept well through the night on Seroquel (3) Gait abnormality: Plan: Patient is generally weak PT/OT consulted. Awaiting their notes prefers that the patient goes home with home health services. (4) Elevated troponin: Plan: Troponin went up from 23-71-80-122. No complaints of chest pain EKG shows paced rhythm Echocardiogram shows no wall motion abnormalities or depressed EF does not want any aggressive intervention thus cardiology has not been consulted Patient was treated with Lovenox therapeutic dose for 48 hours Continue aspirin Added metoprolol (patient has a pacemaker for heart block) Follow-up with patient's primary dietitian assistant outpatient (5) Hypertension: Plan: Chronic -Continue Lisinopril Metoprolol added at smallest dose Blood pressure stable with the added metoprolol (6) Hyperlipidemia: Plan: Chronic -Continue Atorvastatin Plan DVT prophylaxis: Was on Lovenox therapeutic dose for 48 hours. Switch to prophylactic dose starting tomorrow Admission and Anticipated Discharge Date Admission Date: November 30, 2023 Subjective Patient feels well. Denies chest pain or shortness of breath. Per nurse, patient slept well overnight. at the bedside. Patient remains slightly confused. Review of Systems Review of Systems: All systems reviewed & are unremarkable except as noted in Subjective Physical Exam Physical Exam: General: Awake, conversant but pleasantly confused. Heart: S1, S2/regular rate and rhythm, no murmur rubs or gallops Lungs: Clear to auscultation bilaterally. Normal effort Abdomen: Soft/nontender/nondistended. No hepatosplenomegaly Extremities: No clubbing/cyanosis. No edema Behavior: Appropriate, cooperative Results & Data Results & Data Vital Signs (Past 12 Hours) Vital Signs Temp Pulse Resp BP Pulse Ox O2 Del Method 12/02/23 08:15 Room Air 12/02/23 08:04 34.9 C L 85 18 133/77 97 Room Air 12/02/23 02:45 36.8 C 98 H 18 147/84 H 95 Room Air Laboratory Results Abnormal lab results 12/02/23 Range/Units 11:31 POC Glucose 126 H (70-99) mg/dl PG Care Time/CCT Total # of Minutes Spent Total Time Spent with Patient: Total time spent is greater than 50% in coordination of care (as documented) at patient's floor/unit and/or counseling patient: Coding Level of Care Code 78294 SUB INP/OBS CARE 2/35MIN Diagnoses COVID-19 U07.1 Acute metabolic encephalopathy G93.41 Gait abnormality R26.9 Elevated troponin R79.89 Hypertension I10 Hypertension type: primary hypertension Hyperlipidemia E78.5 (5) Hypertension Hypertension type: primary hypertension Qualified Code(s): I10 - Essential (primary) hypertension
[2023-12-02] MEDS: QUEtiapine FUMARATE 25 MG TABLET PO SCH (20:46)
[2023-12-02] MEDS: ACETAMINOPHEN 325 MG TAB PO PRN (20:46)
[2023-12-03] MEDS: ATORVASTATIN 40 MG TAB PO SCH (08:20)
[2023-12-03] MEDS: allopurinoL 300 MG TAB PO SCH (08:20)
[2023-12-03] MEDS: ASPIRIN 81 MG ECTAB PO SCH (08:20)
[2023-12-03] MEDS: METOPROLOL TARTRATE 25 MG TAB PO SCH ×2 (08:21→20:07)
[2023-12-03 08:49] LABS: Calcium 8.9 mg/dl (8.6-10.3); Potassium 3.6 mmol/L (3.5-5.1)
[2023-12-03 08:57] LABS: BUN Creatinine Ratio 24.9 (10-20); Creatinine Clr Calc Pharmacy 30.8 ml/min; Est GFR (African American) 39.3 ml/min; Est GFR (Non-African American) 33.9 ml/min
[2023-12-03] MEDS ORDERED: ENOXAPARIN INJ 40 MG/0.4 ML SYR SQ SCH (09:00)
[2023-12-03] MEDS: SODIUM CHLORIDE 0.9% 1,000 ML IV SCH ×2 (10:44→17:03)
--- NOTE | 2023-12-03 15:17 | Hospitalist Progress Note ---
Date of Service December 03, 2023 Assessment & Plan (1) COVID-19: Plan: -Maintain isolation precautions Asymptomatic No hypoxia -Oxygen saturations adequate - no indication for treatment with Dexamethasone or Remdesivir -Tylenol PRN (2) Acute metabolic encephalopathy: Plan: Patient most likely has underlying dementia as he has been confused over the past several months Worse over the past few days possibly due to COVID Currently not agitated but has been agitated during this hospital stay, requiring Haldol as needed Patient is now on Seroquel nightly to help with sleep-wake cycle. Per nurse, slept well through the night on Seroquel (3) Gait abnormality: Plan: Patient is generally weak PT/OT on board prefers that the patient goes home with home health services. (4) Elevated troponin: Plan: Troponin went up from 39-22-53-122. No complaints of chest pain EKG shows paced rhythm Echocardiogram shows no wall motion abnormalities or depressed EF does not want any aggressive intervention thus cardiology has not been consulted Patient was treated with Lovenox therapeutic dose for 48 hours Continue aspirin Added metoprolol (patient has a pacemaker for heart block) Follow-up with patient's primary safety tech outpatient Most likely secondary to demand ischemia (5) Hypertension: Plan: Chronic Blood pressure has been low yesterday. Probably because of the added metoprolol Discontinue lisinopril IV hydration Continue metoprolol with holding parameters (6) Hyperlipidemia: Plan: Chronic -Continue Atorvastatin (7) GATO (acute kidney injury): Plan: Blood pressure was rather low yesterday Patient was not symptomatic Creatinine is bumped at 1.85 today most likely secondary to low blood pressure and prerenal azotemia Will hydrate gently Monitor labs Discontinued lisinopril Switch from prophylactic dose of Lovenox to heparin Plan DVT prophylaxis: Was on Lovenox therapeutic dose for 48 hours. Switch to heparin prophylactic dose Admission and Anticipated Discharge Date Admission Date: November 30, 2023 Subjective Patient was noted to be relatively hypotensive yesterday. He was not symptomatic. BMP showed elevated creatinine. Patient still remains confused. Denies feeling dizzy or lightheaded. Accompanied by his at the bedside Review of Systems Review of Systems: All systems reviewed & are unremarkable except as noted in Subjective Physical Exam Physical Exam: General: Awake, conversant but pleasantly confused. Heart: S1, S2/regular rate and rhythm, no murmur rubs or gallops Lungs: Clear to auscultation bilaterally. Normal effort Abdomen: Soft/nontender/nondistended. No hepatosplenomegaly Extremities: No clubbing/cyanosis. No edema Behavior: Appropriate, cooperative Results & Data Results & Data Vital Signs (Past 12 Hours) Vital Signs Temp Pulse Pulse Resp BP Pulse Ox O2 Del Method 12/03/23 11:25 36.4 C L 98 H 18 92/58 L 95 Room Air 12/03/23 07:30 71 12/03/23 07:29 36.3 C L 59 L 18 104/63 97 Room Air 12/03/23 04:08 36.8 C 87 20 95/62 L 95 Room Air Laboratory Results Abnormal lab results 12/02/23 12/02/23 12/03/23 Range/Units 17:22 20:52 08:08 Sodium 135 L (136-145) mmol/L BUN 46 H (6-23) mg/dl Creatinine 1.85 H (0.6-1.4) mg/dl BUN/Creatinine Ratio 24.9 H (10-20) POC Glucose 124 H 152 H (70-99) mg/dl PG Care Time/CCT Total # of Minutes Spent Total Time Spent with Patient: Total time spent is greater than 50% in coordination of care (as documented) at patient's floor/unit and/or counseling patient: Coding Level of Care Code 19343 SUB INP/OBS CARE 2/35MIN Diagnoses COVID-19 U07.1 Acute metabolic encephalopathy G93.41 Gait abnormality R26.9 Elevated troponin R79.89 Hypertension I10 Hypertension type: primary hypertension Hyperlipidemia E78.5 GATO (acute kidney injury) N17.9 (5) Hypertension Hypertension type: primary hypertension Qualified Code(s): I10 - Essential (primary) hypertension
[2023-12-03] MEDS ORDERED: POTASSIUM CHLORIDE CRTAB 20 MEQ TABCR PO STA (15:41)
[2023-12-03] MEDS ORDERED: SODIUM CHLORIDE 0.9% 500 ML IV ONE (15:55)
[2023-12-03] MEDS ORDERED: MAGNESIUM SULFATE / D5W 1 GM/100 ML BAG IV ONE (16:40)
[2023-12-03] MEDS: HEPARIN SOD 5,000 UNIT/0.5 ML VIAL SQ SCH (20:07)
[2023-12-03] MEDS: QUEtiapine FUMARATE 25 MG TABLET PO SCH (20:07)
[2023-12-04] MEDS: SODIUM CHLORIDE 0.9% 1,000 ML IV SCH ×2 (01:23→09:08)
[2023-12-04] MEDS: HEPARIN SOD 5,000 UNIT/0.5 ML VIAL SQ SCH ×3 (05:10→20:59)
[2023-12-04] MEDS: METOPROLOL TARTRATE 25 MG TAB PO SCH ×2 (09:03→20:57)
[2023-12-04] MEDS: ASPIRIN 81 MG ECTAB PO SCH (09:04)
[2023-12-04] MEDS: ATORVASTATIN 40 MG TAB PO SCH (09:04)
[2023-12-04] MEDS: allopurinoL 300 MG TAB PO SCH (09:04)
[2023-12-04 09:06] LABS: Hematocrit (blood only) 32.5 % (42.0-52.0); Hemoglobin 11.2 g/dl (14.0-18.0); Mean Corpuscular Hemoglobin 31.4 pg (25.0-34.0); Mean Corpuscular Hgb Conc 34.5 g/dL (32.0-36.0); Mean Platelet Volume 10.3 fL (9.4-12.4); Platelet Count 224 K/uL (130-400); RDW Coefficient of Variation 12.3 % (11.5-14.5); RDW Standard Deviation 40.8 fL (36.4-46.3); Red Blood Count 3.57 M/uL (4.70-6.10); White Blood Count 8.12 K/ul (4.8-10.8)
[2023-12-04 09:36] LABS: Calcium 8.2 mg/dl (8.6-10.3); Potassium 3.8 mmol/L (3.5-5.1)
[2023-12-04 09:41] LABS: BUN Creatinine Ratio 27.3 (10-20); Creatinine Clr Calc Pharmacy 41.1 ml/min; Est GFR (African American) 55.5 ml/min; Est GFR (Non-African American) 47.9 ml/min
--- NOTE | 2023-12-04 13:51 | Hospitalist Progress Note ---
Date of Service December 04, 2023 Assessment & Plan (1) COVID-19: Plan: -Maintain isolation precautions Asymptomatic No hypoxia -Oxygen saturations adequate - no indication for treatment with Dexamethasone or Remdesivir -Tylenol PRN (2) Acute metabolic encephalopathy: Plan: Patient most likely has underlying dementia as he has been confused over the past several months Worse over the past few days possibly due to COVID Currently not agitated but has been agitated during this hospital stay, requiring Haldol as needed Patient is now on Seroquel nightly to help with sleep-wake cycle. Per nurse, slept well through the night on Seroquel (3) Gait abnormality: Plan: Patient is generally weak PT/OT on board prefers that the patient goes home with home health services. (4) Elevated troponin: Plan: Troponin went up from 64-75-69-122. No complaints of chest pain EKG shows paced rhythm Echocardiogram shows no wall motion abnormalities or depressed EF does not want any aggressive intervention thus cardiology has not been consulted Patient was treated with Lovenox therapeutic dose for 48 hours Continue aspirin Added metoprolol (patient has a pacemaker for heart block) Follow-up with patient's primary facility coordinator outpatient Most likely secondary to demand ischemia (5) Hypertension: Plan: Chronic Blood pressure had been low 12/02. Probably because of the added metoprolol Discontinue lisinopril 12/03 IV hydration given Continue metoprolol with holding parameters Blood pressure stable today (6) Hyperlipidemia: Plan: Chronic -Continue Atorvastatin (7) GATO (acute kidney injury): Plan: Blood pressure was rather low 12/02 in 12/03 Patient was not symptomatic Creatinine had bumped at 1.85 on 12/03 most likely secondary to low blood pressure and prerenal azotemia Creatinine came down to 1.39 today. Discontinue IV fluids. Encourage p.o. intake Monitor labs Discontinued lisinopril Plan DVT prophylaxis: Heparin subcu 3 times daily Disposition: Likely discharge to home tomorrow provided good renal function Admission and Anticipated Discharge Date Admission Date: November 30, 2023 Subjective Patient remains pleasantly confused. Accompanied by his at the bedside. Patient denies any chest pain or shortness of breath. Review of Systems Review of Systems: All systems reviewed & are unremarkable except as noted in Subjective Physical Exam Physical Exam: General: Awake, conversant but pleasantly confused. Heart: S1, S2/regular rate and rhythm, no murmur rubs or gallops Lungs: Clear to auscultation bilaterally. Normal effort Abdomen: Soft/nontender/nondistended. No hepatosplenomegaly Extremities: No clubbing/cyanosis. No edema Behavior: Appropriate, cooperative Results & Data Results & Data Vital Signs (Past 12 Hours) Vital Signs Temp Pulse Pulse Resp BP Pulse Ox O2 Del Method 12/04/23 08:07 36.3 C L 69 16 113/64 97 Room Air 12/04/23 06:29 65 12/04/23 04:54 69 12/04/23 04:16 36.2 C L 72 20 106/63 98 Room Air Laboratory Results Abnormal lab results 12/04/23 Range/Units 08:42 RBC 3.57 L (4.70-6.10) M/uL Hgb 11.2 L (14.0-18.0) g/dl Hct 32.5 L (42.0-52.0) % Chloride 111 H (98-107) mmol/L BUN 38 H (6-23) mg/dl BUN/Creatinine Ratio 27.3 H (10-20) Calcium 8.2 L (8.6-10.3) mg/dl PG Care Time/CCT Total # of Minutes Spent Total Time Spent with Patient: Total time spent is greater than 50% in coordination of care (as documented) at patient's floor/unit and/or counseling patient: Coding Level of Care Code 72383 SUB INP/OBS CARE 2/35MIN Diagnoses COVID-19 U07.1 Acute metabolic encephalopathy G93.41 Gait abnormality R26.9 Elevated troponin R79.89 Hypertension I10 Hypertension type: primary hypertension Hyperlipidemia E78.5 GATO (acute kidney injury) N17.9 (5) Hypertension Hypertension type: primary hypertension Qualified Code(s): I10 - Essential (primary) hypertension
[2023-12-04] MEDS: QUEtiapine FUMARATE 25 MG TABLET PO SCH (20:57)
[2023-12-05] MEDS: HEPARIN SOD 5,000 UNIT/0.5 ML VIAL SQ SCH (05:14)
[2023-12-05 08:05] LABS: Hematocrit (blood only) 33.7 % (42.0-52.0); Hemoglobin 11.2 g/dl (14.0-18.0); Mean Corpuscular Hemoglobin 31.1 pg (25.0-34.0); Mean Corpuscular Hgb Conc 33.2 g/dL (32.0-36.0); Mean Corpuscular Volume 93.6 fL (80.0-100.0); Mean Platelet Volume 10.6 fL (9.4-12.4); Platelet Count 242 K/uL (130-400); RDW Coefficient of Variation 12.3 % (11.5-14.5); RDW Standard Deviation 42.7 fL (36.4-46.3); White Blood Count 6.49 K/ul (4.8-10.8)
[2023-12-05 08:29] LABS: BUN Creatinine Ratio 26.2 (10-20); Calcium 8.8 mg/dl (8.6-10.3); Creatinine Clr Calc Pharmacy 58.4 ml/min; Est GFR (African American) 79.7 ml/min; Est GFR (Non-African American) 68.8 ml/min; Potassium 3.7 mmol/L (3.5-5.1)
[2023-12-05] MEDS: allopurinoL 300 MG TAB PO SCH (09:18)
[2023-12-05] MEDS: ATORVASTATIN 40 MG TAB PO SCH (09:18)
[2023-12-05] MEDS: ASPIRIN 81 MG ECTAB PO SCH (09:18)
[2023-12-05] MEDS: METOPROLOL TARTRATE 25 MG TAB PO SCH (09:40)
--- NOTE | 2023-12-05 10:26 | Discharge Summary ---
Date of Service December 05, 2023 Admission HPI Per Admitting Provider Francisco Guzman is a 78yo male with history of HTN, HLP, GERD, CKD presenting with confusion. Majority of history obtained from patient's as patient is confused and unable to provide details of events prior to arrival. His reports that patient has had worsening mental state for the last several weeks with acute worsening over the last two days. He has been getting confused about his right and left and having difficulty following commands. He developed a cough today as well as a headache. His called 911. No sick contacts or recent travel. No tick bites. ER Course: Ceftriaxone Haldol 2mg IV NSS x 500mL Admission Exam Per Admitting Provider General: patient resting comfortably, confused, oriented to self only. Following some commands and answering some question Skin: warm, dry, intact, no rashes or lesions HEENT: NC/AT, PERRL, EOMI, anicteric sclera, conjunctiva without injection, external ear normal to inspection and nontender, nares patent, moist mucus membranes, dentition intact, no oropharyngeal lesions, neck supple, trachea midline, no LAD, no thyromegaly, no JVD Heart: +S1/S2, regular, no m/r/g Lungs: equal air entry bilaterally, no rales/rhonchi/wheezes Abd: +BS, soft, NT/ND, no masses/organomegaly/ascites Ext: warm, 2+ pulses in UE/LE bilaterally, no clubbing/cyanosis or edema Neuro: speech clear, following some commands, strength 5/5 in UE/LE bilaterally Principal Diagnosis COVID-19 Acute metabolic encephalopathy possibly worsened by to COVID-19 Ambulatory dysfunction Demand ischemia Acute kidney injury, now resolved Discharge Exam General: Awake, conversant but pleasantly confused. Heart: S1, S2/regular rate and rhythm, no murmur rubs or gallops Lungs: Clear to auscultation bilaterally. Normal effort Abdomen: Soft/nontender/nondistended. No hepatosplenomegaly Extremities: No clubbing/cyanosis. No edema Behavior: Appropriate, cooperative Discharge Data Allergies Allergy/AdvReac Type Severity Reaction Status Date / Time clindamycin Allergy Intermediate Rash Verified 11/29/23 21:25 Penicillins Allergy Intermediate RASH Verified 11/29/23 21:25 shellfish derived Allergy Intermediate Rash-WITH Verified 11/29/23 21:25 SHELLFISH oxycodone AdvReac Intermediate confusion Verified 11/29/23 21:25 Consultations 11/30/23 00:28 ED Decision to Admit Stat Ordered Studies 11/29/23 20:40 CT head/brain wo con Stat Hospital Course (1) COVID-19: Asymptomatic No hypoxia -Oxygen saturations adequate - no indication for treatment with Dexamethasone or Remdesivir -Tylenol PRN (2) Acute metabolic encephalopathy: Patient most likely has underlying dementia as he has been confused over the past several months Worse over the past few days possibly due to COVID Currently not agitated She has needed a few doses of as needed Haldol during this hospital stay Patient is now on Seroquel nightly to help with sleep-wake cycle. Sleeping well through the night on Seroquel Will discharge on Seroquel (3) Gait abnormality: Patient is generally weak PT/OT on board prefers that the patient goes home with home health services. (4) Elevated troponin: Troponin went up from 71-02-92-122. No complaints of chest pain EKG shows paced rhythm Echocardiogram shows no wall motion abnormalities or depressed EF does not want any aggressive intervention thus cardiology has not been consulted Patient was treated with Lovenox therapeutic dose for 48 hours Continue aspirin Added metoprolol (patient has a pacemaker for heart block) Follow-up with patient's primary post office clerk outpatient Most likely secondary to demand ischemia (5) Hypertension: Chronic Blood pressure had been low 12/02. Probably because of the added metoprolol Discontinued lisinopril 12/03 IV hydration given Continue metoprolol with holding parameters Blood pressure stable today Will discharge on p.o. metoprolol in place of lisinopril (6) Hyperlipidemia: Chronic -Continue Atorvastatin (7) GATO (acute kidney injury): Blood pressure was rather low 12/02 and 12/03 Patient was not symptomatic Creatinine had bumped at 1.85 on 12/03 most likely secondary to low blood pressure and prerenal azotemia After IV hydration, GATO resolved Discontinued IV fluids. Encourage p.o. intake Continues to be stable today Discontinued lisinopril Plan Discharge today to home with home health services Total Time Total Time Spent Total Time Spent (In Minutes): 35 Discharge Plan Discharge Items Patient Disposition: Home - Home Health Services Reason For Visit: CONFUSION Discharge Diagnosis: COVID-19 Acute metabolic encephalopathy, likely worsened by COVID-19 Gait instability and ambulatory dysfunction Demand ischemia Acute kidney injury, now resolved Condition on Discharge: Fair Activity: Resume your previous activity Non-emergency contact: Primary Care Provider Call non-emergency contact if: you have any medication questions and your symptoms worsen Follow-up/Referrals: Carlito Wynn DO [Primary Care Provider] - 12/12/23 2:00 pm Diet: Heart Healthy Addtl Attending Provider Instructions: Advised to follow-up with PCP in 1 week Advised to follow-up with post office clerk in 2 weeks Pending Studies at Discharge: No Stand-Alone Forms: My [facility] Medications and DC Order Prescriptions: New quetiapine 25 mg Tablet 25 mg PO HS Qty: 30 0RF metoprolol tartrate 25 mg Tablet 12.5 mg PO BID Qty: 60 0RF Continued allopurinol 300 mg tablet 300 mg PO QAM Qty: 90 3RF atorvastatin 40 mg tablet 40 mg PO QAM Qty: 90 3RF famotidine 20 mg tablet 20 mg PO QAM PRN (Reason: Acid Reflux) Qty: 30 3RF vitamin B complex Tablet 1 tab PO DAILY Rx Instructions: Started taking in addition to B12 daily. aspirin 81 mg tablet,delayed release (DR/EC) 81 mg PO DAILY PRN (Reason: .prevent blood clots) Discontinued lisinopril 10 mg tablet 10 mg PO DAILY Qty: 90 3RF Discharge Orders: Discharge Order (Routine); Ordered 12/05/23 Ordered By: Gaby Robbins/Other Patient Handouts: COVID-19 Home Care, Metoprolol Oral Tablet, Quetiapine Oral Tablet Admission Data Admit Date/Time: 11/30/23 01:04 Attending Provider: Gaby Hatch Admit Provider: Rachelle Atkinson Primary Care Provider: Carlito Wynn Other Providers: Rachelle Atkinson; [facility] Other Interventions: Discharge Summary Assessment (RN) Last Done: 12/05/23 10:51 Coding Level of Care Code 24978 INP/OBS DISCH >30 MIN Diagnoses COVID-19 U07.1 Acute metabolic encephalopathy G93.41 Gait abnormality R26.9 Elevated troponin R79.89 Hypertension I10 Hypertension type: primary hypertension Hyperlipidemia E78.5 GATO (acute kidney injury) N17.9
== END 2023-12-05 11:27 | disposition home health service (06) | DRG 177 ==
LOC: ED 19:49 → SUATTDRO 11-30 01:04 → EDINP 11-30 01:04 → 2N 11-30 03:10

== ENCOUNTER 2025-06-09 19:36 | Inpatient (IN) ==
--- NOTE | 2025-06-09 20:10 | Emergency Department Note ---
Impression & Plan Generalized weakness, Ambulatory dysfunction, Acute confusion, Leukocytosis, GATO (acute kidney injury) ED Provider Note HISTORY OF PRESENT ILLNESS: Patient is an 80-year-old male presenting with increased confusion and weakness. helps provide history given the patient has baseline dementia. Reports the patient is much more confused today than his normal baseline. Reports that the patient was unable to get up out of his chair today and required 3 people to get him up. He normally is ambulatory in the house with the assistance of a cane or a walker. denies the patient having any recent fevers or chills. Patient denies any complaints on arrival to the emergency department. denies the patient recently falling or hitting his head. No vomiting. No chest pain or shortness of breath. does report that the patient's left leg seems more swollen than normal. He is not on any anticoagulation or antiplatelet therapies. ROS: as above PHYSICAL EXAM: Constitutional: Patient appears in no acute distress. HENT: Head: Normocephalic and atraumatic. Eyes: EOMI, PERRL Mouth/Throat: Mucous membranes moist. Neck: Trachea midline. Neck supple. Cardiovascular: Paced rhythm. No murmurs, rubs or gallops. Intact distal pulses. Pulmonary/Chest: No respiratory distress. Breath sounds clear and equal bilaterally. No wheezes or rales. Abdominal: Abdomen soft, no tenderness, rebound or guarding. Musculoskeletal: No tenderness or deformity noted. +1 edema of bilateral lower extremities extending to mid-tibias. Skin: Warm and dry. No rash, erythema, pallor or cyanosis Psychiatric: Appropriate mood and affect for situation. Neurological: Alert but confused. CN II-XII grossly intact, moving all extremities equally and fully. MDM: - Vitals signs showed tachycardia - History obtained via patient's , given patient's baseline dementia. History as above. - Chronic conditions affecting care: CKD; GERD; HLD; HTN; dementia - Differential diagnoses include, but are not limited to: pneumonia; UTI; viral syndrome; CVA; intracranial hemorrhage; ACS - Order placed for continuous cardiac monitoring. At this time, monitor showed rate of 79 bpm with normal sinus rhythm, per my interpretation. - External medical records reviewed. Wellness visit note dated 12/31/2024 was reviewed. Patient was seen for their annual wellness exam. - EKG image interpreted by myself showed paced rhythm. Rate 83 bpm. QT 364. - Laboratory workup interpreted by myself showed leukocytosis (WBC 11.29); normal PT/INR; GATO on CKD (Cr 1.43); slight hyponatremia (Na 135); normal troponin; normal BNP; normal lactate; normal procalcitonin - CXR image viewed by myself is negative for pneumonia, per my interpretation. - Viral respiratory panel negative - CT head wo contrast negative for acute pathology. - Patient given 500 cc NS in ER - UA ordered, but patient has not urinated in ER. - Discussed results with patient and his family at bedside. expresses significant concern about the patient's ability to get up and get around at home. He required multiple nurses to assist in getting him from the wheelchair to the bed in the examination room from triage. Will discuss case with hospitalist service. - Discussion was had with piano case and bench assembler about patient's case and need for admission - Hospitalist consulted for admission - Patient admitted to [facility] hospitalist service for further evaluation and management. ASSESSMENT AND PLAN: Diagnosis: generalized weakness; ambulatory dysfunction; acute confusion; leukocytosis; GATO Plan: admit Past Med/Surg History Problem List (Updated 06/09/25 @ 22:05 by Lena Rojas MD) GATO (acute kidney injury) (Acute) Leukocytosis (Acute) Acute confusion (Acute) Ambulatory dysfunction (Acute) Generalized weakness (Acute) Dementia Hypertension (Chronic) Pacemaker Bradycardia by electrocardiogram Aortic stenosis Hyperlipidemia (Chronic) CKD (chronic kidney disease) stage 3, GFR 30-59 ml/min GERD (gastroesophageal reflux disease) (Chronic) Well controlled and stable Memory changes Abnormal CT scan, head NPH (normal pressure hydrocephalus) Urinary frequency (Acute) Second degree AV block, Mobitz type II 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 EMG Vitamin B12 deficiency Left knee DJD Osteoarthritis (Chronic) Lumbar radiculopathy (Acute) Physical deconditioning Gait abnormality (Acute) Medical History CHB (complete heart block) Gout Multiple fractures of ribs of right side Encounter for pre-operative examination Hx of hiatal hernia Surgical History History of bilateral knee replacement Status post total left knee replacement History of carpal tunnel release History of colonoscopy History of wisdom tooth extraction History of total right knee replacement History of ventral hernia repair S/P cholecystectomy Family History Mother Myocardial infarction Father Lung cancer Denies family history of Ovarian cancer Prostate cancer Breast cancer Colorectal cancer Social History Smoking Status: Never smoker Second Hand Exposure: No; Do You Dip or Chew Tobacco: No; Hx Alcohol Use: Yes Alcohol type: beer Alcohol Intake Frequency: 2-4 x/Month Alcohol Intake Frequency Comment: Averages 1 beer a week Hx Substance Use: No Preferred Language: [place] Communication Ability: Effective Communication Ability Comment: confused Visual Impairment: Diminished Hearing Ability: Normal Proof Reader Required: No marital status: Current Living Situation: Spouse current occupational status: retired current occupation: Former special medical equipment sales retiring age 61 How many Children do You have: 0 How many Children do You have Comment: none Feels Safe at Home: Yes Childhood Exposure to Second-Hand Smoke: No Diet: regular caffeine: Yes Dental Care, Regularly: Yes Physical Activity Frequency: Does not Exercise Seatbelt Use: always Sunscreen Use: Yes Assistive Devices: Cane Allergies Allergies Allergy/AdvReac Type Severity Reaction Status Date / Time Penicillins Allergy Intermediate RASH Verified 06/09/25 20:45 shellfish derived Allergy Intermediate Rash-WITH Verified 06/09/25 20:45 SHELLFISH oxycodone AdvReac Intermediate confusion Verified 06/09/25 20:45 clindamycin AdvReac Mild Depression Verified 06/09/25 20:45 metoprolol AdvReac Mild Depression Verified 06/09/25 20:45 Home Meds Home Medications Medication Instructions Recorded Confirmed vitamin B complex 1 tab PO DAILY 03/31/24 06/09/25 Previous Rx's Medication Instructions Recorded famotidine 20 mg tablet 20 mg PO QAM PRN Acid Reflux #30 08/28/22 tabs atorvastatin 40 mg tablet 40 mg PO QAM #90 tabs 07/02/24 allopurinol 200 mg tablet 200 mg PO QAM #60 tabs 01/06/25 memantine 21 mg capsule 21 mg PO DAILY 90 days #90 ea 03/01/25 sprinkle,extended release 24hr sertraline 50 mg tablet 50 mg PO DAILY #90 tabs 04/28/25 Results & Data (ED) Vital Signs Vital Signs - 24 hr 06/09/25 19:39 06/09/25 19:49 Temperature 36.6 C Temperature Source Temporal Artery Scan Pulse Rate 108 H 79 Pulse Rhythm Regular Pulse Strength Normal Respiratory Rate 18 Respiratory Effort / Characteristics Non-Labored Spontaneous Respiratory Depth Normal Respiratory Pattern Regular Blood Pressure 123/64 Blood Pressure Mean 83 Blood Pressure Position Sitting Pulse Oximetry 96 Oxygen Delivery Method Room Air Sepsis Recent Fever Within 48 Hours No Sepsis New/Unexplained Change in Mental Status N/A Sepsis Action Taken by Nursing No Action Required Laboratory Data 06/09/25 20:05 06/09/25 20:05 Lab Results 06/09/25 06/09/25 Range/Units 20:05 20:11 WBC 11.29 H (4.8-10.8) K/ul RBC 4.57 L (4.70-6.10) M/uL Hgb 13.7 L (14.0-18.0) g/dl Hct 41.5 L (42.0-52.0) % MCV 90.8 (80.0-100.0) fL MCH 30.0 (25.0-34.0) pg MCHC 33.0 (32.0-36.0) g/dL RDW Std Deviation 42.8 (36.4-46.3) fL RDW Coeff of Andi 13.0 (11.5-14.5) % Plt Count 203 (130-400) K/uL MPV 10.4 (9.4-12.4) fL Immature Gran % (Auto) 0.4 % Neut % (Auto) 77.2 % Lymph % (Auto) 10.1 % Wilkinson % (Auto) 11.2 % Eos % (Auto) 0.7 % Baso % (Auto) 0.4 % Neut # (Auto) 8.71 H (1.40-6.50) K/uL Lymph # (Auto) 1.14 L (1.20-3.40) K/uL Wilkinson # (Auto) 1.27 H (0.11-0.59) K/uL Eos # (Auto) 0.08 (0.00-0.50) K/uL Baso # (Auto) 0.05 (0.00-0.20) K/uL Immature Gran # (Auto) 0.04 (0.01-0.20) K/uL PT 11.4 (9.0-12.0) Seconds INR 1.1 (0.9-1.1) Sodium 135 L (136-145) mmol/L Potassium 3.9 (3.5-5.1) mmol/L Chloride 101 (98-107) mmol/L Carbon Dioxide 26 (21-32) mmol/L Anion Gap 8 (3-11) BUN 25 H (6-23) mg/dl Creatinine 1.43 H (0.6-1.4) mg/dl Est Cr Clr Drug Dosing Not Reportable eGFR 49.23 BUN/Creatinine Ratio 17.5 (10-20) Glucose 105 H (70-99(Fasting)) mg/dl Lactate 1.4 (0.4-2.0) mmol/L Calcium 9.0 (8.6-10.3) mg/dl Magnesium 1.9 (1.7-2.4) mg/dl Total Bilirubin 0.7 (0.2-1.0) mg/dl AST 19 (13-39) U/L ALT 13 (7-52) U/L Alkaline Phosphatase 94 (34-104) U/L Troponin I High Sens 11.7 (0-20) pg/ml B-Natriuretic Peptide 88 (0-100) pg/ml Total Protein 7.7 (6.0-8.3) gm/dl Albumin 3.8 (3.4-5.0) gm/dl Globulin 3.9 (2.5-4.0) gm/dl Albumin/Globulin Ratio 1.0 (0.9-2) Procalcitonin 0.09 (0-0.5) ng/ml TSH 1.945 (0.300-4.500) uIu/ml Adenovirus (PCR) Not Detected (NotDetected) B. pertussis DNA (PCR) Not Detected (NotDetected) B.parapertussis DNA PCR Not Detected (NotDetected) C. pneumoniae DNA (PCR) Not Detected (NotDetected) Coronavirus OC43 (PCR) Not Detected (NotDetected) Coronavirus HKU1 (PCR) Not Detected (NotDetected) Coronavirus 229E (PCR) Not Detected (NotDetected) SARS-CoV-2 (PCR) Not Detected (NotDetected) Coronavirus NL63 (PCR) Not Detected (NotDetected) Human Metapneumovir PCR Not Detected (NotDetected) Influenza Type A (PCR) Not Detected (NotDetected) Influenza Type B (PCR) Not Detected (NotDetected) M. pneumoniae (PCR) Not Detected (NotDetected) Parainfluenza 1 (PCR) Not Detected (NotDetected) Parainfluenza 2 (PCR) Not Detected (NotDetected) Parainfluenza 3 (PCR) Not Detected (NotDetected) Parainfluenza 4 (PCR) Not Detected (NotDetected) RSV (PCR) Not Detected (NotDetected) Entero/Rhino (PCR) Not Detected (NotDetected) Administered Medications Discontinued Medications Sodium Chloride (Nss) 500 mls @ 999 mls/hr IV .Q31M ONE Stop: 06/09/25 22:10 Last Admin: 06/09/25 21:53 Dose: 999 mls/hr Documented By: NRB Imaging Data Radiologist's Impression: Head CT 06/09/25 19:49 Exam(s): CT HEAD Without Contrast EXAM: CT Head Without Intravenous Contrast CLINICAL HISTORY: confusion. TECHNIQUE: Axial computed tomography images of the head/brain without intravenous contrast. CTDI is 36.05 mGy and DLP is 624.41 mGy-cm. Automated exposure control was utilized for the study. A dose lowering technique was utilized adhering to the principles of ALARA. COMPARISON: 07-26-2023 FINDINGS: Brain: Age-appropriate generalized atrophy. No acute stroke. Mild supratentorial periventricular and subcortical white matter changes. No acute hemorrhage or abnormal extra-axial fluid collection. Ventricles: No hydrocephalus. No midline shift. Bones/joints: Unremarkable. No acute fracture. Soft tissues: Unremarkable. Sinuses: Unremarkable as visualized. No acute sinusitis. IMPRESSION: No acute abnormality. Electronically signed by: Kashmir Arauz M.D. 06/09/25 21:29 PM Discharge Plan Visit Data Chief Complaint: Leg Weakness, Bilateral Stated Complaint: WEAKNESS IN LEGS, CONFUSION, ED Provider: Lena Rojas Discharge Problem: Generalized weakness, Ambulatory dysfunction, Acute confusion, Leukocytosis, GATO (acute kidney injury) Condition: Fair Forms Stand Alone Forms: [facility] [employer] Prescriptions Prescriptions: No Action famotidine 20 mg tablet 20 mg PO QAM PRN (Reason: Acid Reflux) Qty: 30 3RF allopurinol 200 mg tablet 200 mg PO QAM Qty: 60 6RF memantine 21 mg capsule,sprinkle,ER 24hr 21 mg PO DAILY 90 Days Qty: 90 1RF sertraline 50 mg tablet 50 mg PO DAILY Qty: 90 2RF vitamin B complex Tablet 1 tab PO DAILY Rx Instructions: PER PT'S SPOUSE "DON'T TAKE REGULARLY" atorvastatin 40 mg tablet 40 mg PO QAM Qty: 90 3RF Referrals Referrals: Carlito Wynn DO [Primary Care Provider] -
[2025-06-09 20:25] LABS: Hematocrit (blood only) 41.5 % (42.0-52.0); Hemoglobin 13.7 g/dl (14.0-18.0); Immature Granulocytes # (auto) 0.04 K/uL (0.01-0.20); Immature Granulocytes % (auto) 0.4 %; Mean Corpuscular Hemoglobin 30.0 pg (25.0-34.0); Mean Corpuscular Volume 90.8 fL (80.0-100.0); Platelet Count 203 K/uL (130-400); RDW Standard Deviation 42.8 fL (36.4-46.3); Red Blood Count 4.57 M/uL (4.70-6.10); White Blood Count 11.29 K/ul (4.8-10.8)
[2025-06-09 20:42] LABS: Alanine Aminotransferase 13 U/L (7-52); Albumin Globulin Ratio 1.0 (0.9-2); Alkaline Phosphatase 94 U/L (34-104); Anion Gap 8 (3-11); Bilirubin,Total 0.7 mg/dl (0.2-1.0); Blood Urea Nitrogen 25 mg/dl (6-23); Calcium 9.0 mg/dl (8.6-10.3); Carbon Dioxide 26 mmol/L (21-32); Chloride 101 mmol/L (98-107); Globulin 3.9 gm/dl (2.5-4.0); Glucose 105 mg/dl (70-99(Fasting)); Magnesium 1.9 mg/dl (1.7-2.4); Potassium 3.9 mmol/L (3.5-5.1); Sodium 135 mmol/L (136-145); Total Protein 7.7 gm/dl (6.0-8.3)
[2025-06-09 20:49] LABS: INR 1.1 (0.9-1.1); Prothrombin Time 11.4 Seconds (9.0-12.0)
[2025-06-09 20:57] LABS: Thyroid Stimulating Hormone 1.945 uIu/ml (0.300-4.500)
[2025-06-09 21:23] LABS: Chlamydia pneumoniae PCR Not Detected (NotDetected); Coronavirus 229E PCR Not Detected (NotDetected); Coronavirus CoV-2 (COVID19)PCR Not Detected (NotDetected); Coronavirus HKU1 PCR Not Detected (NotDetected); Coronavirus NL63 PCR Not Detected (NotDetected); Coronavirus OC43PCR Not Detected (NotDetected); Human Metapneumovirus PCR Not Detected (NotDetected); Parainfluenza Virus 1 PCR Not Detected (NotDetected); Parainfluenza Virus 2 PCR Not Detected (NotDetected); Parainfluenza Virus 3 PCR Not Detected (NotDetected); Parainfluenza Virus 4 PCR Not Detected (NotDetected); Respiratory Syncytial VirusPCR Not Detected (NotDetected); Rhinovirus/Enterovirus PCR Not Detected (NotDetected)
--- NOTE | 2025-06-09 21:30 | CT Scan Report ---
Exam(s): CT HEAD Without Contrast EXAM: CT Head Without Intravenous Contrast CLINICAL HISTORY: confusion. TECHNIQUE: Axial computed tomography images of the head/brain without intravenous contrast. CTDI is 36.05 mGy and DLP is 624.41 mGy-cm. Automated exposure control was utilized for the study. A dose lowering technique was utilized adhering to the principles of ALARA. COMPARISON: 07-26-2023 FINDINGS: Brain: Age-appropriate generalized atrophy. No acute stroke. Mild supratentorial periventricular and subcortical white matter changes. No acute hemorrhage or abnormal extra-axial fluid collection. Ventricles: No hydrocephalus. No midline shift. Bones/joints: Unremarkable. No acute fracture. Soft tissues: Unremarkable. Sinuses: Unremarkable as visualized. No acute sinusitis. IMPRESSION: No acute abnormality. Electronically signed by: Kashmir Arauz M.D. 06/09/25 21:29 PM
[2025-06-09] MEDS: SODIUM CHLORIDE 0.9% 500 ML IV ONE (21:53)
--- NOTE | 2025-06-09 23:00 | History & Physical Report ---
Date of Service June 09, 2025 Assessment & Plan (1) GATO (acute kidney injury): (2) Leukocytosis: (3) Ambulatory dysfunction: (4) Dementia: (5) Generalized weakness: (6) Pacemaker: (7) Hypertension: (8) Hyperlipidemia: (9) CKD (chronic kidney disease) stage 3, GFR 30-59 ml/min: Plan This is an 80 year old male with a PMH of dementia, HLD, HTN, GERD, SSS s/p PPM, CKD stage 3 - coming in with ambulatory dysfunction and weakness. Ambulatory Dysfunction - a functional decline in clinical status - was just receiving therapy at home, but acutely worsened - check for other causes (UTI or infection); head CT negative - PT/OT evals placed GATO superimposed on CKD stage 3 - received IV fluids in the ED - hold off on maintenance fluids due to bilateral LE edema - avoid nephrotoxic agents when able Bilateral Lower Extremity Edema - check bilateral venous doppler to rule out DVT - hold off on IV fluids - consider echo; diuresis SSS s/p PPM - noted Leukocytosis - check UA History of Present Illness Chief Complaint: Weakness Primary Care Provider: Carlito Wynn, This is an 80 year old male with a PMH of dementia, HLD, HTN, GERD, SSS s/p PPM, CKD stage 3 - coming in with ambulatory dysfunction and weakness. Patient's states that they have had a difficult time moving him and he had a difficult time ambulating; he was getting therapy at home but this ended on Saturday, June 04, 2025. Patient denies any symptoms. Per , he has not had a bowel movement in a few days. On arrival here, head CT done and negative for acute process. Labs done and noted to have a mild elevation in white count and a mild elevation in creatinine. Allergies Allergy/AdvReac Type Severity Reaction Status Date / Time Penicillins Allergy Intermediate RASH Verified 06/09/25 20:45 shellfish derived Allergy Intermediate Rash-WITH Verified 06/09/25 20:45 SHELLFISH oxycodone AdvReac Intermediate confusion Verified 06/09/25 20:45 clindamycin AdvReac Mild Depression Verified 06/09/25 20:45 metoprolol AdvReac Mild Depression Verified 06/09/25 20:45 Home Medications Medication Instructions Recorded Confirmed Type famotidine 20 mg tablet 20 mg PO QAM PRN Acid Reflux #30 08/28/22 06/09/25 Rx tabs vitamin B complex 1 tab PO DAILY 03/31/24 06/09/25 History atorvastatin 40 mg tablet 40 mg PO QAM #90 tabs 07/02/24 06/09/25 Rx allopurinol 200 mg tablet 200 mg PO QAM #60 tabs 01/06/25 06/09/25 Rx memantine 21 mg capsule 21 mg PO DAILY 90 days #90 ea 03/01/25 06/09/25 Rx sprinkle,extended release 24hr sertraline 50 mg tablet 50 mg PO DAILY #90 tabs 04/28/25 06/09/25 Rx Past Med/Surg History Problem List (Updated 06/09/25 @ 22:05 by Lena Rojas MD) GATO (acute kidney injury) (Acute) Leukocytosis (Acute) Acute confusion (Acute) Ambulatory dysfunction (Acute) Generalized weakness (Acute) Dementia Hypertension (Chronic) Pacemaker Bradycardia by electrocardiogram Aortic stenosis Hyperlipidemia (Chronic) CKD (chronic kidney disease) stage 3, GFR 30-59 ml/min GERD (gastroesophageal reflux disease) (Chronic) Well controlled and stable Memory changes Abnormal CT scan, head NPH (normal pressure hydrocephalus) Urinary frequency (Acute) Second degree AV block, Mobitz type II 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 EMG Vitamin B12 deficiency Left knee DJD Osteoarthritis (Chronic) Lumbar radiculopathy (Acute) Physical deconditioning Gait abnormality (Acute) Medical History CHB (complete heart block) Gout Multiple fractures of ribs of right side Encounter for pre-operative examination Hx of hiatal hernia Surgical History History of bilateral knee replacement Status post total left knee replacement History of carpal tunnel release History of colonoscopy History of wisdom tooth extraction History of total right knee replacement History of ventral hernia repair S/P cholecystectomy Family History Mother Myocardial infarction Father Lung cancer Denies family history of Ovarian cancer Prostate cancer Breast cancer Colorectal cancer Social History Smoking Status: Never smoker Second Hand Exposure: No; Do You Dip or Chew Tobacco: No; Hx Alcohol Use: Yes Alcohol type: beer Alcohol Intake Frequency: 2-4 x/Month Alcohol Intake Frequency Comment: Averages 1 beer a week Hx Substance Use: No Preferred Language: Nam[place]ian Communication Ability: Effective Communication Ability Comment: confused Visual Impairment: Diminished Hearing Ability: Normal Local Flatbed Driver Required: No marital status: Current Living Situation: Spouse current occupational status: retired current occupation: Former special medical records coordinator retiring age 61 How many Children do You have: 0 How many Children do You have Comment: none Feels Safe at Home: Yes Childhood Exposure to Second-Hand Smoke: No Diet: regular caffeine: Yes Dental Care, Regularly: Yes Physical Activity Frequency: Does not Exercise Seatbelt Use: always Sunscreen Use: Yes Assistive Devices: Cane Review of Systems Review of Systems: Constitutional: No Weight Change, No Fever, No Chills, No Night Sweats, No Fatigue, No Malaise ENT/Mouth: No Hearing Changes, No Ear Pain, No Nasal Congestion, No Sinus Pain, No Hoarseness, No sore throat, No Rhinorrhea, No Swallowing Difficulty Eyes: No Eye Pain, No Swelling, No Redness, No Foreign Body, No Discharge, No Vision Changes Cardiovascular: No Chest Pain, No SOB, No PND, No Dyspnea on Exertion, No Orthopnea, No Claudication, No Edema, No Palpitations Respiratory: No Cough, No Sputum, No Wheezing, No Smoke Exposure, No Dyspnea Gastrointestinal: No Nausea, No Vomiting, No Diarrhea, No Constipation, No Pain, No Heartburn, No Anorexia, No Dysphagia, No Hematochezia, No Melena, No Flatulence, No Jaundice Genitourinary: No Dysmenorrhea, No DUB, No Dyspareunia, No Dysuria, No Urinary Frequency, No Hematuria, No Urinary Incontinence, No Urgency, No Flank Pain, No Urinary Flow Changes, No Hesitancy Musculoskeletal: No Arthralgias, No Myalgias, No Joint Swelling, No Joint Stiffness, No Back Pain, No Neck Pain, No Injury History Skin: No Skin Lesions, No Pruritis, No Hair Changes, No Breast/Skin Changes, No Nipple Discharge Neuro: No Weakness, No Numbness, No Paresthesias, No Loss of Consciousness, No Syncope, No Dizziness, No Headache, No Coordination Changes, No Recent Falls Psych: No Anxiety/Panic, No Depression, No Insomnia, No Personality Changes, No Delusions, No Rumination, No SI/HI/AH/VH, No Social Issues, No Memory Changes, No Violence/Abuse Hx., No Eating Concerns Heme/Lymph: No Bruising, No Bleeding, No Transfusions History, No Lymphadenopathy Endocrine: No Polyuria, No Polydipsia, No Temperature Intolerance Physical Exam Physical Exam: VITALS: Reviewed. WEIGHT/BMI reviewed. GEN: Healthy appearing, well-developed, NAD. PSYCH: +alert, not oriented; baseline mental status HEENT -Head: NC/AT; -Eyes: PERRL, EOMI. No discharge or redn ess; -Ears: External ears are normal. Normal TMs. -Nose: Normal nares. -Mouth and throat: MMM. Normal gums, muc oly, palate,. Good dentition. NECK: Supple, with no masses. CV: RRR, no m/r/g. LUNGS: CTAB, no w/r/c. ABD: Soft, NT/ND, NBS, no masses or organomegaly. : N/A SKIN: Warm, well perfused. No skin rashes or abnormal lesions. MSK: No deformities, Normal gait. EXT: +2 pitting edema b/l LE NEURO: Ambulating with no limitations. Normal muscle strength and tone. No focal deficits. Results & Data Results & Data Vital Signs (Past 12 Hours) Vital Signs Temp Pulse Resp BP Pulse Ox O2 Del Method 06/09/25 19:49 79 06/09/25 19:39 36.6 C 108 H 18 123/64 96 Room Air Laboratory Results 06/09/25 06/09/25 20:11 20:05 WBC 11.29 H RBC 4.57 L Hgb 13.7 L Hct 41.5 L MCV 90.8 MCH 30.0 MCHC 33.0 RDW Std Deviation 42.8 RDW Coeff of Andi 13.0 Plt Count 203 MPV 10.4 Immature Gran % (Auto) 0.4 Neut % (Auto) 77.2 Lymph % (Auto) 10.1 [place] % (Auto) 11.2 Eos % (Auto) 0.7 Baso % (Auto) 0.4 Neut # (Auto) 8.71 H Lymph # (Auto) 1.14 L [place] # (Auto) 1.27 H Eos # (Auto) 0.08 Baso # (Auto) 0.05 Immature Gran # (Auto) 0.04 PT 11.4 INR 1.1 Sodium 135 L Potassium 3.9 Chloride 101 Carbon Dioxide 26 Anion Gap 8 BUN 25 H Creatinine 1.43 H Est Cr Clr Drug Dosing Not Reportable eGFR 49.23 BUN/Creatinine Ratio 17.5 Glucose 105 H Lactate 1.4 Calcium 9.0 Magnesium 1.9 Total Bilirubin 0.7 AST 19 ALT 13 Alkaline Phosphatase 94 Troponin I High Sens 11.7 B-Natriuretic Peptide 88 Total Protein 7.7 Albumin 3.8 Globulin 3.9 Albumin/Globulin Ratio 1.0 Procalcitonin 0.09 TSH 1.945 Adenovirus (PCR) Not Detected B. pertussis DNA (PCR) Not Detected B.parapertussis DNA PCR Not Detected C. pneumoniae DNA (PCR) Not Detected Coronavirus OC43 (PCR) Not Detected Coronavirus HKU1 (PCR) Not Detected Coronavirus 229E (PCR) Not Detected SARS-CoV-2 (PCR) Not Detected Coronavirus NL63 (PCR) Not Detected Human Metapneumovir PCR Not Detected Influenza Type A (PCR) Not Detected Influenza Type B (PCR) Not Detected M. pneumoniae (PCR) Not Detected Parainfluenza 1 (PCR) Not Detected Parainfluenza 2 (PCR) Not Detected Parainfluenza 3 (PCR) Not Detected Parainfluenza 4 (PCR) Not Detected RSV (PCR) Not Detected Entero/Rhino (PCR) Not Detected Diagnostic Findings Chest X-Ray 06/09/25 19:49 Exam(s): XR CXR 1 VIEW EXAM: XR Chest, 1 View CLINICAL HISTORY: confusion. TECHNIQUE: Frontal view of the chest. COMPARISON: 11/29/2023. FINDINGS: Heart is enlarged. Hypoventilation with increased bibasilar atelectasis. No pleural effusion or pneumothorax. Bones are unchanged. IMPRESSION: Hypoventilation with increased bibasilar atelectasis. Electronically signed by: Kashmir Arauz M.D. 06/09/25 23:[address] 06/09/25 19:49 Exam(s): CT HEAD Without Contrast EXAM: CT Head Without Intravenous Contrast CLINICAL HISTORY: confusion. TECHNIQUE: Axial computed tomography images of the head/brain without intravenous contrast. CTDI is 36.05 mGy and DLP is 624.41 mGy-cm. Automated exposure control was utilized for the study. A dose lowering technique was utilized adhering to the principles of ALARA. COMPARISON: 07-26-2023 FINDINGS: Brain: Age-appropriate generalized atrophy. No acute stroke. Mild supratentorial periventricular and subcortical white matter changes. No acute hemorrhage or abnormal extra-axial fluid collection. Ventricles: No hydrocephalus. No midline shift. Bones/joints: Unremarkable. No acute fracture. Soft tissues: Unremarkable. Sinuses: Unremarkable as visualized. No acute sinusitis. IMPRESSION: No acute abnormality. Electronically signed by: Kashmir Arauz M.D. 06/09/25 21:29 PM Code Status & VTE Plan VTE Prophylaxis Plan VTE Prophylaxis will be ordered: Yes PG Care Time/CCT Total # of Minutes Spent Total Time Spent with Patient: Total time spent is greater than 50% in coordination of care (as documented) at patient's floor/unit and/or counseling patient: Coding Level of Care Code 23031 INT INP/OBS CARE 3/75MIN Diagnoses GATO (acute kidney injury) N17.9 Leukocytosis D72.829 Ambulatory dysfunction R26.2 Dementia F03.90 Generalized weakness R53.1 Pacemaker Z95.0 Hypertension I10 Hypertension type: primary hypertension Hyperlipidemia E78.5 CKD (chronic kidney disease) stage 3, GFR 30-59 ml/min N18.30 (7) Hypertension Hypertension type: primary hypertension Qualified Code(s): I10 - Essential (primary) hypertension
[2025-06-09] MEDS ORDERED: ALUMINUM/MAGNESIUM SUSP 30 ML UDC PO PRN (23:06)
[2025-06-09] MEDS ORDERED: ONDANSETRON INJ 2 MG/ML 2 ML VIAL IV PRN (23:06)
--- NOTE | 2025-06-09 23:24 | XRay Report ---
Exam(s): XR CXR 1 VIEW EXAM: XR Chest, 1 View CLINICAL HISTORY: confusion. TECHNIQUE: Frontal view of the chest. COMPARISON: 11/29/2023. FINDINGS: Heart is enlarged. Hypoventilation with increased bibasilar atelectasis. No pleural effusion or pneumothorax. Bones are unchanged. IMPRESSION: Hypoventilation with increased bibasilar atelectasis. Electronically signed by: Kashmir Arauz M.D. 06/09/25 23:23 PM
[2025-06-09] MEDS: MELATONIN 3 MG TAB PO PRN (23:36)
[2025-06-09] MEDS: ACETAMINOPHEN 325 MG TAB PO PRN (23:37)
[2025-06-10] MEDS: HEPARIN SOD 5,000 UNIT/0.5 ML VIAL SQ SCH (05:19)
--- NOTE | 2025-06-10 08:36 | Ultrasound Report ---
ULTRASOUND BILATERAL LOWER EXTREMITY VENOUS CLINICAL HISTORY: Lower extremity edema COMPARISON STUDY: No priors TECHNIQUE: Real-time, grayscale, and color Doppler sonography of the deep veins of the right and left lower extremity was performed from the inguinal crease to the calf. Compression and augmentation wer e utilized. FINDINGS: Right lower extremity: There is no sonographic evidence of deep venous thrombosis in the right lower extremity. The common femoral, superficial femoral, and popliteal veins are patent and normally compr essible. The greater saphenous vein and the profunda femoris vein at the junction with the common fem oral vein are clear. The visualized calf veins are patent. Left lower extremity: There is nearly occlusive deep venous thrombosis in the left popliteal vein. Th is extends into the calf within the posterior tibial and peroneal veins. The common femoral and super ficial femoral veins are patent and normally compressible. The greater saphenous vein and the profund a femoris vein at the junction with the common femoral vein are clear. IMPRESSION: 1. There is nearly occlusive deep venous thrombosis in the left popliteal vein which extends into the calf as above. 2. There is no sonographic evidence of deep venous thrombosis in the right lower extremity. ACT 112: Negative or not required by law. Electronically signed by: Wild Vega M.D. 06/10/2025 8:35 AM
[2025-06-10] MEDS: MEMANTINE HCL 5 MG TAB PO SCH (09:20)
[2025-06-10] MEDS: ATORVASTATIN 40 MG TAB PO SCH (09:21)
[2025-06-10] MEDS: SERTRALINE HCL 50 MG TABLET PO SCH (09:21)
[2025-06-10 09:36] LABS: Hematocrit (blood only) 41.3 % (42.0-52.0); Hemoglobin 13.9 g/dl (14.0-18.0); Immature Granulocytes # (auto) 0.05 K/uL (0.01-0.20); Immature Granulocytes % (auto) 0.5 %; Mean Corpuscular Hemoglobin 31.0 pg (25.0-34.0); Mean Corpuscular Volume 92.0 fL (80.0-100.0); Platelet Count 217 K/uL (130-400); RDW Standard Deviation 43.2 fL (36.4-46.3); Red Blood Count 4.49 M/uL (4.70-6.10); White Blood Count 10.07 K/ul (4.8-10.8)
[2025-06-10 09:59] LABS: Anion Gap 7.0 (3-11); Blood Urea Nitrogen 21.0 mg/dl (6-23); Calcium 9.1 mg/dl (8.6-10.3); Carbon Dioxide 27.0 mmol/L (21-32); Chloride 103.0 mmol/L (98-107); Creatinine Clr Calc Pharmacy 47.4 ml/min; Glucose 108.0 mg/dl (70-99(Fasting)); Magnesium 2.0 mg/dl (1.7-2.4); Potassium 3.9 mmol/L (3.5-5.1); Sodium 137.0 mmol/L (136-145)
[2025-06-10] MEDS: APIXABAN 5 MG TABLET PO SCH (10:06)
--- NOTE | 2025-06-10 11:42 | Hospitalist Progress Note ---
"Date of Service June 10, 2025 Assessment & Plan (1) GATO (acute kidney injury): (2) Leukocytosis: (3) Ambulatory dysfunction: (4) Dementia: (5) Generalized weakness: (6) Pacemaker: (7) Hypertension: (8) Hyperlipidemia: (9) CKD (chronic kidney disease) stage 3, GFR 30-59 ml/min: Plan This is an 80 year old male with a PMH of dementia, HLD, HTN, GERD, SSS s/p PPM, CKD stage 3 - coming in with ambulatory dysfunction and weakness. #Ambulatory Dysfunction | weakness So far no infectious cause found leukocytosis resolved without antibiotics,Pro- Parmjit wnl, no fever. Bio fire negative. Chest x-ray without acute findings. Head CT without acute finding Awaiting UA PT/OT - recommend rehab, case management following #GATO superimposed on CKD stage 3 Creatinine 1.43 on arrival, received IV fluids in the ED Kidney function has returned to baseline. No additional IV fluids needed Avoid nephrotoxic agents when able #left popliteal vein DVT Possibly contributing to his ambulatory dysfunction Eliquis 10 mg twice daily x 7 days then 5 mg twice daily Heat for discomfort #SSS s/p PPM - noted #Dementia continue Namenda, and zoloft Currently at his mental status baseline dispo: Continued inpatient stay, awaiting UA and safe discharge location DVT prophylaxis: Eliquhimanshu updated at bedside 06/10 Admission and Anticipated Discharge Date Admission Date: June 09, 2025 Subjective patient seen sitting up in bed, finishing session with OT. present at bedside. Francisco is pleasantly pleasantly confused, thinks it is October. reports that this is his mental status baseline. helps provide additional history. Reports leg swelling for about 10 days, had traveled towards the end of April to [place], has had decreased mobility in the last couple weeks as well. No fevers. Still awaiting urine sample collection Review of Systems Review of Systems: All systems reviewed & are unremarkable except as noted in Subjective Physical Exam Physical Exam: General: NAD, VS as above Resp: normal respiratory effort, lungs clear to auscultation CV: RRR, no murmur, Abd: normal bowel sounds, non tender, no hepatosplenomegaly Extremities: Moves all extremities, left lower extremity warm and enlarged, positive Homans' sign. Right lower extremity without edema Neuro: A&O x1, Skin: intact, no lesions noted Results & Data Results & Data Vital Signs (Past 12 Hours) Vital Signs Temp Pulse Resp BP Pulse Ox O2 Del Method 06/10/25 07:19 97.7 F 99 H 18 135/85 99 Room Air Laboratory Results seen DC reviewed BioFire Pro-Parmjit and TSH reviewed Diagnostic Findings venous Doppler study reviewed PG Care Time/CCT Total # of Minutes Spent Total Time Spent with Patient: Total time spent is greater than 50% in coordination of care (as documented) at patient's floor/unit and/or counseling patient: Coding Level of Care Code 68340 SUB INP/OBS CARE 2/35MIN Diagnoses GATO (acute kidney injury) N17.9 Leukocytosis D72.829 Ambulatory dysfunction R26.2 Dementia F03.90 Generalized weakness R53.1 Pacemaker Z95.0 Hypertension I10 Hypertension type: primary hypertension Hyperlipidemia E78.5 CKD (chronic kidney disease) stage 3, GFR 30-59 ml/min N18.30 (7) Hypertension Hypertension type: primary hypertension Qualified Code(s): I10 - Essential (primary) hypertension"
[2025-06-10 14:19] LABS: Appearance Urine Clear (Clear); Bacteria Urine Automated None Seen (None Seen); Cast Urine Automated 0-2 /lpf (0-2); Epithelial Cell Urine Auto 0-2 /hpf (0-2); Glucose Urine UA Negative (Negative); RBC Urine Automated 0-2 /hpf (0-2); WBC Urine Automated 0-5 /hpf (0-5)
[2025-06-10] MEDS: MEMANTINE HCL 10 MG TAB PO SCH (19:58)
--- NOTE | 2025-06-11 13:44 | Hospitalist Progress Note ---
"Date of Service June 11, 2025 Assessment & Plan (1) GATO (acute kidney injury): (2) Leukocytosis: (3) Ambulatory dysfunction: (4) Dementia: (5) Generalized weakness: (6) Pacemaker: (7) Hypertension: (8) Hyperlipidemia: (9) CKD (chronic kidney disease) stage 3, GFR 30-59 ml/min: Plan This is an 80 year old male with a PMH of dementia, HLD, HTN, GERD, SSS s/p PPM, CKD stage 3 - coming in with ambulatory dysfunction and weakness. #Ambulatory Dysfunction | weakness So far no infectious cause found leukocytosis resolved without antibiotics,Pro- Parmjit wnl, no fever. Bio fire negative. Chest x-ray without acute findings. Head CT without acute finding. UA negative Suspect related to his DVT PT/OT - recommend rehab, case management following #GATO superimposed on CKD stage 3 Creatinine 1.43 on arrival, received IV fluids in the ED. Kidney function has returned to baseline. No additional IV fluids needed Avoid nephrotoxic agents when able #left popliteal vein DVT Possibly contributing to his ambulatory dysfunction Eliquis 10 mg twice daily x 7 days then 5 mg twice daily Heat for discomfort #SSS s/p PPM - noted #Dementia continue Namenda, and zoloft Currently at his mental status baseline dispo: Continued inpatient stay, awaiting safe discharge location DVT prophylaxis: Eliquis updated at bedside 06/10 & 06/11 Admission and Anticipated Discharge Date Admission Date: June 09, 2025 Subjective Patient seen sitting up in bed, present at bedside. Patient alert to self and offers no complaints, he thinks it is november today has multiple questions about labs which are answered Review of Systems Review of Systems: All systems reviewed & are unremarkable except as noted in Subjective Physical Exam Physical Exam: General: NAD, vitals as above, sitting up in bed Pulm: breathing unlabored CV: well perfused extremities: moves all extremities, right leg still edematous Results & Data Results & Data Vital Signs (Past 12 Hours) Vital Signs Temp Pulse Resp BP BP Pulse Ox O2 Del Method 06/11/25 12:02 97.7 F 97 H 18 127/69 98 Room Air 06/11/25 08:06 98.2 F 93 H 16 117/82 98 Room Air Laboratory Results UA reviewed PG Care Time/CCT Total # of Minutes Spent Total Time Spent with Patient: Total time spent is greater than 50% in coordination of care (as documented) at patient's floor/unit and/or counseling patient: Coding Level of Care Code 10529 SUB INP/OBS CARE 2/35MIN Diagnoses GATO (acute kidney injury) N17.9 Leukocytosis D72.829 Ambulatory dysfunction R26.2 Dementia F03.90 Generalized weakness R53.1 Pacemaker Z95.0 Hypertension I10 Hypertension type: primary hypertension Hyperlipidemia E78.5 CKD (chronic kidney disease) stage 3, GFR 30-59 ml/min N18.30 (7) Hypertension Hypertension type: primary hypertension Qualified Code(s): I10 - Essential (primary) hypertension"
[2025-06-11] MEDS: OLANZAPINE 2.5 MG TAB PO STA (15:11)
--- NOTE | 2025-06-11 22:49 | Electrocardiogram Report ---
Test Reason : Blood Pressure : */* mmHG Vent. Rate : 83 BPM Atrial Rate : 83 BPM P-R Int : * ms QRS Dur : 98 ms QT Int : 364 ms P-R-T Axes : * -39 78 degrees QTcB Int : 427 ms AV dual-paced rhythm Abnormal ECG When compared with ECG of 29-Nov-2023 23:09, Vent. rate has decreased by 4 bpm Confirmed by Christiano Negrete ([id number]) on 06/11/2025 10:48:57 PM Referred By: REFERRED SELF Confirmed By: Christiano Negrete
--- NOTE | 2025-06-12 08:34 | Hospitalist Progress Note ---
"Date of Service June 12, 2025 Assessment & Plan (1) GATO (acute kidney injury): (2) Leukocytosis: (3) Ambulatory dysfunction: (4) Dementia: (5) Generalized weakness: (6) Pacemaker: (7) Hypertension: (8) Hyperlipidemia: (9) CKD (chronic kidney disease) stage 3, GFR 30-59 ml/min: Plan This is an 80 year old male with a PMH of dementia, HLD, HTN, GERD, SSS s/p PPM, CKD stage 3 - coming in with ambulatory dysfunction and weakness. #Ambulatory Dysfunction | weakness So far no infectious cause found leukocytosis resolved without antibiotics,Pro- Parmjit wnl, no fever. Bio fire negative. Chest x-ray without acute findings. Head CT without acute finding. UA negative Suspect related to his DVT PT/OT - recommend rehab, case management following #GATO superimposed on CKD stage 3 Creatinine 1.43 on arrival, received IV fluids in the ED. Kidney function has returned to baseline. No additional IV fluids needed Avoid nephrotoxic agents when able #left popliteal vein DVT Possibly contributing to his ambulatory dysfunction Eliquis 10 mg twice daily x 7 days then 5 mg twice daily Heat for discomfort #SSS s/p PPM - noted #Dementia continue Namenda, and zoloft Currently at his mental status baseline had increased restlessness that responded well to PO zyprexa 2.5mg dispo: Continued inpatient stay, awaiting safe discharge location DVT prophylaxis: Eliquis updated at bedside 06/10 & 06/11 Admission and Anticipated Discharge Date Admission Date: June 09, 2025 Subjective Patient seen sitting up in bed, eating breakfast. Denies acute complaints Review of Systems Review of Systems: All systems reviewed & are unremarkable except as noted in Subjective Physical Exam Physical Exam: General: NAD, vitals as above, sitting up in bed Pulm: breathing unlabored CV: well perfused extremities: moves all extremities, right leg still edematous and tender with palpation Results & Data Results & Data Vital Signs (Past 12 Hours) Vital Signs Temp Pulse Resp BP Pulse Ox O2 Del Method 06/12/25 08:12 97.3 F L 83 16 146/83 H 93 Room Air 06/11/25 23:01 97.7 F 96 H 18 160/84 H 97 Room Air PG Care Time/CCT Total # of Minutes Spent Total Time Spent with Patient: Total time spent is greater than 50% in coordination of care (as documented) at patient's floor/unit and/or counseling patient: Coding Level of Care Code 51938 SUB INP/OBS CARE Diagnoses GATO (acute kidney injury) N17.9 Leukocytosis D72.829 Ambulatory dysfunction R26.2 Dementia F03.90 Generalized weakness R53.1 Pacemaker Z95.0 Hypertension I10 Hypertension type: primary hypertension Hyperlipidemia E78.5 CKD (chronic kidney disease) stage 3, GFR 30-59 ml/min N18.30 (7) Hypertension Hypertension type: primary hypertension Qualified Code(s): I10 - Essential (primary) hypertension"
--- NOTE | 2025-06-13 10:02 | Hospitalist Progress Note ---
"Date of Service June 13, 2025 Assessment & Plan (1) GATO (acute kidney injury): (2) Leukocytosis: (3) Ambulatory dysfunction: (4) Dementia: (5) Generalized weakness: (6) Pacemaker: (7) Hypertension: (8) Hyperlipidemia: (9) CKD (chronic kidney disease) stage 3, GFR 30-59 ml/min: Plan This is an 80 year old male with a PMH of dementia, HLD, HTN, GERD, SSS s/p PPM, CKD stage 3 - coming in with ambulatory dysfunction and weakness. #Ambulatory Dysfunction | weakness So far no infectious cause found leukocytosis resolved without antibiotics,Pro- Parmjit wnl, no fever. Bio fire negative. Chest x-ray without acute findings. Head CT without acute finding. UA negative Suspect related to his DVT PT/OT - recommend rehab, case management following, awaiting insurance auth #GATO superimposed on CKD stage 3 Creatinine 1.43 on arrival, received IV fluids in the ED. Kidney function has returned to baseline. No additional IV fluids needed Avoid nephrotoxic agents when able #left popliteal vein DVT Possibly contributing to his ambulatory dysfunction Eliquis 10 mg twice daily x 7 days (06/10-06/16) then 5 mg twice daily Heat for discomfort #SSS s/p PPM - noted #Dementia continue Namenda, and zoloft Currently at his mental status baseline had increased restlessness that responded well to PO zyprexa 2.5mg dispo: Continued inpatient stay, awaiting safe discharge location DVT prophylaxis: Eliquis updated at bedside 06/10 & 06/11 & 06/12 Admission and Anticipated Discharge Date Admission Date: June 09, 2025 Subjective Patient seen sitting up in bed, eating breakfast. Denies acute complaints. says his leg is feeling better unable to tell me a month Review of Systems Review of Systems: All systems reviewed & are unremarkable except as noted in Subjective Physical Exam Physical Exam: General: NAD, vitals as above, sitting up in bed Pulm: breathing unlabored CV: well perfused extremities: moves all extremities, right leg nontender with palpiation today Results & Data Results & Data Vital Signs (Past 12 Hours) Vital Signs Temp Pulse Resp BP Pulse Ox O2 Del Method 06/13/25 07:32 97.0 F L 98 H 20 133/75 96 Room Air 06/13/25 00:27 97.9 F 95 H 18 141/98 H 98 Room Air PG Care Time/CCT Total # of Minutes Spent Total Time Spent with Patient: Total time spent is greater than 50% in coordination of care (as documented) at patient's floor/unit and/or counseling patient: Coding Level of Care Code 71025 SUB INP/OBS CARE 1/25MIN Diagnoses GATO (acute kidney injury) N17.9 Leukocytosis D72.829 Ambulatory dysfunction R26.2 Dementia F03.90 Generalized weakness R53.1 Pacemaker Z95.0 Hypertension I10 Hypertension type: primary hypertension Hyperlipidemia E78.5 CKD (chronic kidney disease) stage 3, GFR 30-59 ml/min N18.30 (7) Hypertension Hypertension type: primary hypertension Qualified Code(s): I10 - Essential (primary) hypertension"
--- NOTE | 2025-06-14 11:38 | Hospitalist Progress Note ---
Date of Service June 14, 2025 Assessment & Plan (1) GATO (acute kidney injury): (2) Leukocytosis: (3) Ambulatory dysfunction: (4) Dementia: (5) Generalized weakness: (6) Pacemaker: (7) Hypertension: (8) Hyperlipidemia: (9) CKD (chronic kidney disease) stage 3, GFR 30-59 ml/min: Plan This is an 80 year old male with a PMH of dementia, HLD, HTN, GERD, SSS s/p PPM, CKD stage 3 - coming in with ambulatory dysfunction and weakness. #Ambulatory Dysfunction | weakness So far no infectious cause found leukocytosis resolved without antibiotics,Pro- Parmjit wnl, no fever. Bio fire negative. Chest x-ray without acute findings. Head CT without acute finding. UA negative Suspect related to his DVT PT/OT - recommend rehab, case management following, awaiting insurance auth #GATO superimposed on CKD stage 3 Creatinine 1.43 on arrival, received IV fluids in the ED. Kidney function has returned to baseline. No additional IV fluids needed Avoid nephrotoxic agents when able #left popliteal vein DVT Possibly contributing to his ambulatory dysfunction Eliquis 10 mg twice daily x 7 days (06/10-06/16) then 5 mg twice daily Heat for discomfort #SSS s/p PPM - noted #Dementia continue Namenda, and zoloft Currently at his mental status baseline had increased restlessness that responded well to PO zyprexa 2.5mg dispo: Continued inpatient stay, awaiting safe discharge location DVT prophylaxis: Eliquis updated at bedside 06/10 & 06/11 & 06/12 & 06/13 & 06/14 Admission and Anticipated Discharge Date Admission Date: June 09, 2025 Supervising Physician Co-Signing Physician Notes The patient was not seen by me. The chart was reviewed. Case discussed with REGLA Frances. Agree with assessment and plan Subjective Patient seen resting in bed this morning, no complaints. Reports that his leg feels better. requested they look in the series because she was concerned that there was wax buildup. No wax in either ear. Aware that we are still waiting placement Review of Systems Review of Systems: All systems reviewed & are unremarkable except as noted in Subjective Physical Exam Physical Exam: General: NAD, vitals as above, sitting up in bed HEENT" TM pearly culp bilaterally, no evidence of wax or infection Pulm: breathing unlabored CV: well perfused extremities: moves all extremities, right leg nontender with palpiation today Results & Data Results & Data Vital Signs (Past 12 Hours) Vital Signs Temp Pulse Resp BP Pulse Ox O2 Del Method 06/14/25 07:45 97.7 F 95 H 18 130/86 99 Room Air PG Care Time/CCT Total # of Minutes Spent Total Time Spent with Patient: Total time spent is greater than 50% in coordination of care (as documented) at patient's floor/unit and/or counseling patient: Coding Level of Care Code 80365 SUB INP/OBS CARE 12/05MIN Diagnoses GATO (acute kidney injury) N17.9 Leukocytosis D72.829 Ambulatory dysfunction R26.2 Dementia F03.90 Generalized weakness R53.1 Pacemaker Z95.0 Hypertension I10 Hypertension type: primary hypertension Hyperlipidemia E78.5 CKD (chronic kidney disease) stage 3, GFR 30-59 ml/min N18.30 (7) Hypertension Hypertension type: primary hypertension Qualified Code(s): I10 - Essential (primary) hypertension
[2025-06-15 00:23] VITALS: RESP 18
[2025-06-15] MEDS: POLYETHYLENE (MIRALAX) 17 GM PACK PO PRN (08:44)
[2025-06-15] MEDS: MAGNESIUM HYDROXIDE SUSP 30 ML UDC PO PRN (08:44)
--- NOTE | 2025-06-15 09:18 | Discharge Summary ---
Discharge Summary Date of Service June 15, 2025 Principal Dx & Hospital Course #1 = Principal Diagnosis (1) GATO (acute kidney injury): (2) Leukocytosis: (3) Ambulatory dysfunction: (4) Dementia: (5) Generalized weakness: (6) Pacemaker: (7) Hypertension: (8) Hyperlipidemia: (9) CKD (chronic kidney disease) stage 3, GFR 30-59 ml/min: Plan This is an 80 year old male with a PMH of dementia, HLD, HTN, GERD, SSS s/p PPM, CKD stage 3 - coming in with ambulatory dysfunction and weakness. #Ambulatory Dysfunction | weakness Infectious workup was negative. CXR negative, Head CT w/ no acute findings UA negative Likely secondary to DVT. PT/OT recommending rehab #GATO superimposed on CKD stage 3 Creatinine 1.43 on arrival, received IV fluids in the ED. Kidney function has returned to baseline. No additional IV fluids needed Avoid nephrotoxic agents when able #left popliteal vein DVT Possibly contributing to his ambulatory dysfunction Eliquis 10 mg twice daily x 7 days (06/10-06/16) then 5 mg twice daily Heat for discomfort #SSS s/p PPM - noted #Dementia continue Namenda, and zoloft Currently at his mental status baseline had increased restlessness that responded well to PO zyprexa 2.5mg when needed. Consider using prn in outpatient setting if behavioral issues persist. Updated at bedside 06/15. Discharged to [facility] Admission HPI Per Admitting Provider This is an 80 year old male with a PMH of dementia, HLD, HTN, GERD, SSS s/p PPM, CKD stage 3 - coming in with ambulatory dysfunction and weakness. Patient's states that they have had a difficult time moving him and he had a difficult time ambulating; he was getting therapy at home but this ended on Saturday, June 04, 2025. Patient denies any symptoms. Per , he has not had a bowel movement in a few days. On arrival here, head CT done and negative for acute process. Labs done and noted to have a mild elevation in white count and a mild elevation in creatinine. Discharge Exam Constitutional alert to self, pleasant and confused Respiratory no respiratory distress. Symmetrical expansion of chest wall. Cardiovascular no LE edema noted Neurologic PERRL, EOMI, accommodation nl, no face palsy, no dysarthria Psychiatric alert to person Discharge Plan Discharge Items Patient Disposition: Transfer Inpatient Rehab Fac Reason For Visit: WEAKNESS Discharge Diagnosis: Ambulatory dysfunction, LLE DVT Condition on Discharge: Fair Activity: Resume your previous activity Non-emergency contact: Primary Care Provider Call non-emergency contact if: you have any medication questions and your symptoms worsen Follow-up/Referrals: Carlito Wynn, [Primary Care Provider] - Diet: Regular Addtl Attending Provider Instructions: Mr. Guzman, You were recently hospitalized for weakness at home and were found to have a blood clot in your left leg. You were treated with anticoagulation. You are going to rehab to get stronger. Best of luck! Olivia Ogden PA-C Addtl [place] Smearer Provider Instructions: For [facility]: Loading dose of Eliquis 10mg BID through 06/16 following that it will be Eliquis 5mg BID. Pending Studies at Discharge: No Stand-Alone Forms: My [facility] Skilled Items Patient informed of condition?: Yes DNR: No Discharge Level of Care: Acute rehab Communicable Disease: No Discharge Prognosis: Stable Lines: None Urinary Catheter: No Medications and DC Order Prescriptions: New Eliquis 5 mg Tablet 10 mg PO BID Qty: 3 0RF Eliquis 5 mg tablet 5 mg PO BID Qty: 30 0RF Rx Instructions: starting 8/7 in AM Continued famotidine 20 mg tablet 20 mg PO QAM PRN (Reason: Acid Reflux) Qty: 30 3RF allopurinol 200 mg tablet 200 mg PO QAM Qty: 60 6RF memantine 21 mg capsule,sprinkle,ER 24hr 21 mg PO DAILY 90 Days Qty: 90 1RF sertraline 50 mg tablet 50 mg PO DAILY Qty: 90 2RF vitamin B complex Tablet 1 tab PO DAILY Rx Instructions: PER PT'S SPOUSE "DON'T TAKE REGULARLY" atorvastatin 40 mg tablet 40 mg PO QAM Qty: 90 3RF Discharge Orders: Discharge Order (Routine); Ordered 06/15/25 Ordered By: Olivia Robbins/Other Patient Handouts: Apixaban Oral Tablet Admission Data Admit Date/Time: 06/09/25 22:26 Attending Provider: Matteo Salcedo Admit Provider: Ping Mary Primary Care Provider: Carlito Wynn Other Providers: Ping Mary; [facility]; [facility],Care; [facility],[facility] Other Interventions: Discharge Summary Assessment (RN) Last Done: 06/15/25 09:57 Hospital Stay Data Consultations 06/09/25 22:10 ED Decision to Admit Stat Diagnostic Imagining Performed 06/09/25 19:49 CT head/brain wo con Stat 06/10/25 US venous doppler LE BI Stat Pending Results Patient Have Any Pending Studies at Discharge: No Discharge Instructions Given to Patient (Per Discharging Provider) Mr. Guzman, You were recently hospitalized for weakness at home and were found to have a blood clot in your left leg. You were treated with anticoagulation. You are going to rehab to get stronger. Best of luck! Olivia Ogden PA-C Total Time Total Time Spent Total Time Spent (In Minutes): 50 Total Time Includes: Examination of the Patient, Discharge Planning and Medic ation Reconciliation Coding Level of Care Code 36992 INP/OBS DISCH >30 MIN Diagnoses GATO (acute kidney injury) N17.9 Leukocytosis D72.829 Ambulatory dysfunction R26.2 Dementia F03.90 Generalized weakness R53.1 Pacemaker Z95.0 Hypertension I10 Hypertension type: primary hypertension Hyperlipidemia E78.5 CKD (chronic kidney disease) stage 3, GFR 30-59 ml/min N18.30
[2025-06-15 15:09] VITALS: BP 104/65; PULSE 86; TEMP 97.9; O2SAT 98
== END 2025-06-15 16:18 | DRG 683 ==
LOC: ED 19:36 → 3N 22:26 → SUATTDRO 22:26 → 3N 22:54

== ENCOUNTER 2025-07-06 22:29 | Inpatient (IN) ==
[2025-07-06 23:01] LABS: Hematocrit (blood only) 36.2 % (42.0-52.0); Hemoglobin 11.9 g/dl (14.0-18.0); Immature Granulocytes # (auto) 0.04 K/uL (0.01-0.20); Immature Granulocytes % (auto) 0.5 %; Mean Corpuscular Hemoglobin 29.8 pg (25.0-34.0); Mean Corpuscular Volume 90.5 fL (80.0-100.0); Platelet Count 283 K/uL (130-400); RDW Standard Deviation 43.1 fL (36.4-46.3); Red Blood Count 4.00 M/uL (4.70-6.10); White Blood Count 8.81 K/ul (4.8-10.8)
[2025-07-06 23:21] LABS: Alanine Aminotransferase 20.0 U/L (7-52); Albumin Globulin Ratio 0.9 (0.9-2); Alkaline Phosphatase 99.0 U/L (34-104); Anion Gap 8.0 (3-11); Bilirubin,Total 0.5 mg/dl (0.2-1.0); Blood Urea Nitrogen 27.0 mg/dl (6-23); Calcium 9.3 mg/dl (8.6-10.3); Carbon Dioxide 25.0 mmol/L (21-32); Chloride 106.0 mmol/L (98-107); Creatinine Clr Calc Pharmacy 45.1 ml/min; Globulin 3.7 gm/dl (2.5-4.0); Glucose 90.0 mg/dl (70-99(Fasting)); Lipase 48.0 U/L (11-82); Magnesium 2.0 mg/dl (1.7-2.4); Potassium 4.3 mmol/L (3.5-5.1); Sodium 139.0 mmol/L (136-145); Total Protein 7.1 gm/dl (6.0-8.3)
[2025-07-06 23:35] LABS: INR 1.1 (0.9-1.1); Prothrombin Time 12.3 Seconds (9.0-12.0)
[2025-07-06 23:37] LABS: Thyroid Stimulating Hormone 2.662 uIu/ml (0.300-4.500)
--- NOTE | 2025-07-06 23:45 | Emergency Department Note ---
Impression & Plan Acute urinary retention, Dementia ED Provider Note NAME: CHRISTINA NAJERA AGE: 80 SEX: M : 1945 ARRIVES VIA: Ambulance INFORMANT: Patient ED PROVIDER(S): Heri Arciniega MD CHIEF COMPLAINT: dementia, restlessness PLAN: Disposition: Admit MEDICAL DECISION MAKING: The patient is an 80-year-old gentleman with past medical history of dementia, CKD who presents to the emergency department via EMS and by his for evaluation of increased restlessness and complaining of abdominal pain this evening in the setting of recently being admitted to this facility discharged to acute rehab and discharged to home a week ago. reports he had been doing well up until tonight. She does admit that he has not moved his bowels for couple of days and has had urinary incontinence. Patient had been treated with MiraLAX on a daily basis to move his bowels but they had discontinued this. On evaluation patient was restless but in no distress, afebrile stable vital signs. He is alert and oriented to self and place. He has suprapubic fullness with mild discomfort without discrete tenderness to palpation. Bladder scan per RN does demonstrate urinary retention and White catheter was placed in 350 cc of urine subsequently did drain. Patient felt relief of his abdominal pain. EKG is paced without overt acute ischemia. CXR negative for acute cardiopulmonary process per my personal preliminary review/interpretation. WBC and platelets within normal limits. Will hold off normal chemistry without metabolic acidosis. Creatinine 1.4, similar to prior range of values. Electrolyte LFTs unremarkable. HS troponin 12.5, within normal limits. Lipase normal. TSH within limits. UA without evidence of infection. CT of the abdomen pelvis was performed. Per my preliminary interpretation no acute intra-abdominal pathology. Of note, during the patient's ED observation the patient was experiencing some increased agitation where the patient's felt she would be unable to manage him in this state and further complicated by requiring indwelling White catheter. She does agree with plan for admission at this time. Case was discussed with DARLYN Brennan PAC, with DARLYN Zelaya hospitalist who will evaluate the patient for admission. Further management per admitting team. Triage Nursing notes reviewed and agree them. Prior/external medical records reviewed Vital Signs: reviewed Differential diagnosis: Renal colic, UTI, appendicitis, diverticulitis, mesenteric ischemia, aortic pathology, infections, inflammatory bowel disease, PUD, biliary pathology, as well as other pathologies. ER treatment provided: See below. Diagnostics interpreted by me: ECG: AV dual paced rhythm, 73 bpm, no ectopy, no overt acute ischemia Cardiac Monitoring: An order for continuous cardiac monitoring was placed and demonstrated AV dual paced rhythm, 73 bpm, no ectopy. Laboratory studies: See below Imaging studies: See below Consultation(s): DARLYN Brennan PAC, with DARLYN Zelaya hospitalist HPI: Per MDM. ROS: See above HPI for pertinent positives & negatives. A total of 10 systems reviewed and were otherwise negative. VITALS:See Below PHYSICAL EXAMINATION: GENERAL: Awake, alert, in no distress HENT: Normocephalic, atraumatic. Oropharynx unremarkable. EYES: Normal conjunctiva. Sclera non-icteric. NECK: Supple. No nuchal rigidity. FROM. No JVD. RESPIRATORY: Clear to auscultation. CARDIAC: Regular rate, normal rhythm. Extremities warm and well perfused. Pulses equal. ABDOMEN: Soft, non-distended. Suprapubic fullness with mild discomfort without discrete tenderness to palpation. MUSCULOSKELETAL: Chest examination reveals no tenderness. The back is symmetrical on inspection without obvious abnormality. There is no CVA tenderness to palpation. No joint edema. LOWER EXTREMITIES: Calves are equal size bilaterally and non-tender. 1+ BLE edema. No discoloration. NEURO: At baseline for dementia. No focal sensory or motor deficits noted. SKIN: No rash or jaundice noted. Heri Arciniega MD Past Med/Surg History Problem List (Updated 07/07/25 @ 18:59 by Heri Arciniega MD) Dementia (Acute) Acute urinary retention (Acute) Hypophosphatemia Dementia with behavioral disturbance Deep vein thrombosis (DVT) of popliteal vein of left lower extremity GATO (acute kidney injury) (Acute) Leukocytosis (Acute) Acute confusion (Acute) Ambulatory dysfunction (Acute) Generalized weakness (Acute) Dementia Hypertension (Chronic) Pacemaker Bradycardia by electrocardiogram Aortic stenosis Hyperlipidemia (Chronic) CKD (chronic kidney disease) stage 3, GFR 30-59 ml/min GERD (gastroesophageal reflux disease) (Chronic) Well controlled and stable Memory changes Abnormal CT scan, head NPH (normal pressure hydrocephalus) Urinary frequency (Acute) Second degree AV block, Mobitz type II 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 [facility] Vitamin B12 deficiency Left knee DJD Osteoarthritis (Chronic) Lumbar radiculopathy (Acute) Physical deconditioning Gait abnormality (Acute) Medical History CHB (complete heart block) Gout Multiple fractures of ribs of right side Encounter for pre-operative examination Hx of hiatal hernia Surgical History History of bilateral knee replacement Status post total left knee replacement History of carpal tunnel release History of colonoscopy History of wisdom tooth extraction History of total right knee replacement History of ventral hernia repair S/P cholecystectomy Family History Mother Myocardial infarction Father Lung cancer Denies family history of Ovarian cancer Prostate cancer Breast cancer Colorectal cancer Social History Smoking Status: Never smoker Second Hand Exposure: No; Do You Dip or Chew Tobacco: No; Hx Alcohol Use: Yes Alcohol type: beer Alcohol Intake Frequency: 2-4 x/Month Alcohol Intake Frequency Comment: Averages 1 beer a week Hx Substance Use: No Preferred Language: Greek Communication Ability: Effective Communication Ability Comment: confused Visual Impairment: Diminished Hearing Ability: Normal Crib Clerk Required: No Beliefs That Will Affect Care: None marital status: Current Living Situation: Spouse current occupational status: retired current occupation: Former special medication technician retiring age 61 How many Children do You have: 0 How many Children do You have Comment: none Feels Safe at Home: Yes Childhood Exposure to Second-Hand Smoke: No Diet: regular caffeine: Yes Dental Care, Regularly: Yes Physical Activity Frequency: Does not Exercise Seatbelt Use: always Sunscreen Use: Yes Assistive Devices: Bedside Commode, Cane and Walker Allergies Allergies Allergy/AdvReac Type Severity Reaction Status Date / Time Penicillins Allergy Intermediate RASH Verified 07/01/25 11:16 shellfish derived Allergy Intermediate Rash-WITH Verified 07/01/25 11:16 SHELLFISH oxycodone AdvReac Intermediate confusion Verified 07/01/25 11:16 clindamycin AdvReac Mild Depression Verified 07/01/25 11:16 metoprolol AdvReac Mild Depression Verified 07/01/25 11:16 Home Meds Home Medications Medication Instructions Recorded Confirmed vitamin B complex 1 tab PO DAILY 03/31/24 07/07/25 Previous Rx's Medication Instructions Recorded famotidine 20 mg tablet 20 mg PO QAM PRN Acid Reflux #30 08/28/22 tabs allopurinol 200 mg tablet 200 mg PO QAM #60 tabs 01/06/25 sertraline 50 mg tablet 50 mg PO DAILY #90 tabs 04/28/25 atorvastatin 40 mg tablet 40 mg PO QAM #90 tabs 06/24/25 apixaban 5 mg tablet (Eliquis) 5 mg PO BID #30 tabs 07/01/25 memantine 21 mg capsule 21 mg PO DAILY 90 days #90 ea 07/01/25 sprinkle,extended release 24hr Results & Data (ED) Vital Signs Vital Signs - 24 hr 07/06/25 22:45 07/06/25 22:49 07/06/25 22:49 Temperature 36.4 C Temperature Source Oral Pulse Rate 82 97 H Pulse Rate [Apical] Respiratory Rate 16 Respiratory Effort / Characteristics Non-Labored Spontaneous Blood Pressure 136/84 Blood Pressure [Right Arm] Blood Pressure Mean 101 Blood Pressure Mean [Right Arm] Pulse Oximetry 97 97 Oxygen Delivery Method Room Air Room Air Sepsis Recent Fever Within 48 Hours No Sepsis New/Unexplained Change in Mental Status Yes Sepsis Action Taken by Nursing No Action Required 07/06/25 22:49 07/06/25 23:00 07/07/25 00:00 Temperature Temperature Source Pulse Rate 97 H 88 Pulse Rate [Apical] 97 H Respiratory Rate 16 18 20 Respiratory Effort / Characteristics Non-Labored Spontaneous Blood Pressure 124/88 Blood Pressure [Right Arm] 136/84 Blood Pressure Mean 102 Blood Pressure Mean [Right Arm] 101 Pulse Oximetry 97 97 Oxygen Delivery Method Room Air Room Air Sepsis Recent Fever Within 48 Hours Sepsis New/Unexplained Change in Mental Status Sepsis Action Taken by Nursing Laboratory Data 07/06/25 22:45 07/06/25 22:45 Lab Results 07/06/25 07/07/25 Range/Units 22:45 00:00 WBC 8.81 (4.8-10.8) K/ul RBC 4.00 L (4.70-6.10) M/uL Hgb 11.9 L (14.0-18.0) g/dl Hct 36.2 L (42.0-52.0) % MCV 90.5 (80.0-100.0) fL MCH 29.8 (25.0-34.0) pg MCHC 32.9 (32.0-36.0) g/dL RDW Std Deviation 43.1 (36.4-46.3) fL RDW Coeff of Andi 13.2 (11.5-14.5) % Plt Count 283 (130-400) K/uL MPV 10.4 (9.4-12.4) fL Immature Gran % (Auto) 0.5 % Neut % (Auto) 66.9 % Lymph % (Auto) 19.4 % [place] % (Auto) 9.2 % Eos % (Auto) 3.1 % Baso % (Auto) 0.9 % Neut # (Auto) 5.90 (1.40-6.50) K/uL Lymph # (Auto) 1.71 (1.20-3.40) K/uL [place] # (Auto) 0.81 H (0.11-0.59) K/uL Eos # (Auto) 0.27 (0.00-0.50) K/uL Baso # (Auto) 0.08 (0.00-0.20) K/uL Immature Gran # (Auto) 0.04 (0.01-0.20) K/uL PT 12.3 H (9.0-12.0) Seconds INR 1.1 (0.9-1.1) Sodium 139 (136-145) mmol/L Potassium 4.3 (3.5-5.1) mmol/L Chloride 106 (98-107) mmol/L Carbon Dioxide 25 (21-32) mmol/L Anion Gap 8 (3-11) BUN 27 H (6-23) mg/dl Creatinine 1.41 H (0.6-1.4) mg/dl Est Cr Clr Drug Dosing 45.1 ml/min eGFR 50.06 BUN/Creatinine Ratio 19.1 (10-20) Glucose 90 (70-99(Fasting)) mg/dl Calcium 9.3 (8.6-10.3) mg/dl Phosphorus 2.1 L (2.5-4.9) mg/dl Magnesium 2.0 (1.7-2.4) mg/dl Total Bilirubin 0.5 (0.2-1.0) mg/dl AST 23 (13-39) U/L ALT 20 (7-52) U/L Alkaline Phosphatase 99 (34-104) U/L Troponin I High Sens 12.5 (0-20) pg/ml Total Protein 7.1 (6.0-8.3) gm/dl Albumin 3.4 (3.4-5.0) gm/dl Globulin 3.7 (2.5-4.0) gm/dl Albumin/Globulin Ratio 0.9 (0.9-2) Lipase 48 (11-82) U/L TSH 2.662 (0.300-4.500) uIu/ml Urine Color Yellow Urine Appearance Clear (Clear) Urine pH 8.0 H (4.5-7.5) Ur Specific [place] 1.013 (1.000-1.030) Urine Protein Negative (Negative) Urine Glucose (UA) Negative (Negative) Urine Ketones Negative (Negative) Urine Blood Negative (Negative) Urine Nitrite Negative (Negative) Urine Bilirubin Negative (Negative) Urine Urobilinogen Positive H (Negative) Ur Leukocyte Esterase Negative (Negative) Urine Comment Administered Medications Allopurinol ([facility]ol 100 Mg Tab) [facility] Stop: 08/06/25 08:59 Last Admin: 07/07/25 09:20 Dose: 200 mg Documented By: [facility] Apixaban (Apixaban 5 Mg Tablet) 5 mg PO BID [facility] Stop: 08/06/25 08:59 Last Admin: 07/07/25 09:21 Dose: 5 mg Documented By: [facility] Atorvastatin Calcium (Atorvastatin 40 Mg Tab) 40 mg PO QAM [facility] Stop: 08/06/25 08:59 Last Admin: 07/07/25 09:21 Dose: 40 mg Documented By: [facility] Memantine (Memantine Hcl 5 Mg Tab) 5 mg PO DAILY [facility] Stop: 08/06/25 08:59 Last Admin: 07/07/25 09:20 Dose: 5 mg Documented By: [facility] Sertraline HCl (Sertraline Hcl 50 Mg Tablet) 50 mg PO DAILY ALEJANDRO Stop: 08/06/25 08:59 Last Admin: 07/07/25 09:20 Dose: 50 mg Documented By: [facility] Discontinued Medications Haloperidol Lactate (Haloperidol Lactate 5 Mg/Ml 1 Ml Vial) 1 mg IV NOW STA Stop: 07/07/25 00:58 Last Admin: 07/07/25 01:19 Dose: 1 mg Documented By: NAW Sodium Chloride (Nss) 500 mls @ 999 mls/hr IV .Q31M ONE Stop: 07/07/25 01:33 Last Infusion: 07/07/25 03:15 Dose: Infused Documented By: Admin: 07/07/25 02:19 Dose: 999 mls/hr Documented By: MBL Potassium Phosphate 15 mmol/ (Sodium Chloride) 255 mls @ 100 mls/hr IV ONE ONE Stop: 07/07/25 05:02 Last Infusion: 07/07/25 05:50 Dose: Infused Documented By: Admin: 07/07/25 03:17 Dose: 100 mls/hr Documented By: RUBINA Lactated Ringer's (Lr) 1,000 mls @ 80 mls/hr IV .[id number] ALEJANDRO Stop: 07/07/25 14:44 Last Infusion: 07/07/25 16:30 Dose: Infused Documented By: Admin: 07/07/25 03:51 Dose: 80 mls/hr Documented By: RUBINA Olanzapine (Olanzapine 10 Mg/2.1 Ml Sdv) 5 mg IM NOW STA Stop: 07/07/25 07:21 Last Admin: 07/07/25 07:37 Dose: 5 mg Documented By: [facility] Imaging Data Radiologist's Impression: Chest X-Ray 07/06/25 22:51 Exam(s): XR CXR 1 VIEW EXAM: XR Chest, 1 View CLINICAL HISTORY: Reason for exam: weak. TECHNIQUE: Frontal view of the chest. COMPARISON: 06/09/2025 FINDINGS: Lungs: Artifact from soft tissues of the lower thorax due to large body habitus. No definite focal infiltrate or consolidation is seen. Pleural space: Unremarkable. No pneumothorax. Heart: Unremarkable. No cardiomegaly. Mediastinum: Unremarkable. Normal mediastinal contour. Bones/joints: Mild osteophytosis of the mid to lower thoracic spine. Moderate degenerative changes in both shoulders. No acute fracture. Tubes, lines and devices: There is a pacing device on the left with leads extending to the right side of the heart. The cardiac silhouette is mildly enlarged. Upper abdomen: Unremarkable as visualized. No pneumoperitoneum under the diaphragm. IMPRESSION: 1. There is a pacing device on the left with leads extending to the right side of the heart. The cardiac silhouette is mildly enlarged. 2. Artifact from soft tissues of the lower thorax due to large body habitus. No definite focal infiltrate or consolidation is seen. Electronically signed by: Duane Atkinson MD 07/07/25 01:16 AM Abdomen/Pelvis CT 07/07/25 00:12 EXAM: CT abd pelvis wo con CLINICAL HISTORY: abd pain, urinary retention TECHNIQUE: Contiguous axial images were obtained from the level of the diaphragm to the pubic symphysis without intravenous or oral contrast. Coronal and sagittal reconstructions were likewise performed and indicated to increase the sensitivity for detecting clinically relevant pathology. CT scan was performed according to ALARA (as low as reasonable achievable). COMPARISON: August 01/2022 17:40:37 IT PROGRAM MANAGER FINDINGS: The visualized lung bases are clear. Evaluation of the abdominal and pelvic visceral organs is limited without intravenous contrast. The unenhanced liver, spleen, pancreas, and adrenal glands are grossly unremarkable. Status post-cholecystectomy. The kidneys are normal in size and attenuation without obvious calcification. There is no hydronephrosis . Mild bilateral perinephric stranding. The ureters are normal in caliber. The urinary bladder is minimally distended with White's catheter in situ. Pelvic viscera are grossly unremarkable. No adenopathy or fluid collections are seen. No evidence of focal or diffuse bowel wall thickening or evidence of bowel obstruction is seen. No evidence of inflamed appendix. The aorta is normal in caliber. No aggressive appearing osseous lesions are identified. Multiple small uncomplicated colonic diverticulosis. Degenerative changes involving visualized spine. Retrolisthesis of L1 over L2, L2 over L3, L3 over L4 vertebra. IMPRESSION: Mild bilateral perinephric fat stranding-stable. Multiple small uncomplicated colonic diverticulosis.-stable. Degenerative changes swallowing visible spine.-stable. The urinary bladder is minimally distended with White's catheter in situ. No other new interval abnormality since prior study. Electronically signed by Ian Warren 07-07-2025 01:49 AM Discharge Plan Visit Data Chief Complaint: Altered Mental Status Stated Complaint: AMS ED Provider: Heri Arciniega Discharge Problem: Acute urinary retention, Dementia Patient Disposition: Admitted As Inpatient Condition: Good Discharge Instructions Interventions: ED Discharge Assessment Last Done: 07/07/25 02:07 Discharge Problem: Dementia Qualifiers: Dementia type: unspecified type Dementia severity: unspecified severity D ementia behavioral or psychological symptom: with other behavioral disturbance Q ualified Code(s): F03.918 - Unspecified dementia, unspecified severity, with other behavioral disturbance
[2025-07-07 00:21] LABS: Appearance Urine Clear (Clear); Glucose Urine UA Negative (Negative)
--- NOTE | 2025-07-07 01:16 | XRay Report ---
Exam(s): XR CXR 1 VIEW EXAM: XR Chest, 1 View CLINICAL HISTORY: Reason for exam: weak. TECHNIQUE: Frontal view of the chest. COMPARISON: 06/09/2025 FINDINGS: Lungs: Artifact from soft tissues of the lower thorax due to large body habitus. No definite focal infiltrate or consolidation is seen. Pleural space: Unremarkable. No pneumothorax. Heart: Unremarkable. No cardiomegaly. Mediastinum: Unremarkable. Normal mediastinal contour. Bones/joints: Mild osteophytosis of the mid to lower thoracic spine. Moderate degenerative changes in both shoulders. No acute fracture. Tubes, lines and devices: There is a pacing device on the left with leads extending to the right side of the heart. The cardiac silhouette is mildly enlarged. Upper abdomen: Unremarkable as visualized. No pneumoperitoneum under the diaphragm. IMPRESSION: 1. There is a pacing device on the left with leads extending to the right side of the heart. The cardiac silhouette is mildly enlarged. 2. Artifact from soft tissues of the lower thorax due to large body habitus. No definite focal infiltrate or consolidation is seen. Electronically signed by: Duane Atkinson MD 07/07/25 01:16 AM
[2025-07-07] MEDS: HALOPERIDOL LACTATE 5 MG/ML 1 ML VIAL IV STA (01:19)
--- NOTE | 2025-07-07 01:25 | History & Physical Report ---
Date of Service July 07, 2025 Assessment & Plan (1) Dementia with behavioral disturbance: (2) Acute confusion: (3) Hypophosphatemia: Plan Patient is a 80-year-old male with past medical history of dementia, HLD, HTN, GERD, complete heart block s/p pacer, recent DVT on Eliquis. Patient presented via EMS after worsening confusion/aggression at home. No signs of acute infection in the ED, TSH WNL. Will obtain head CT. Patient is being admitted given it is unsafe for him to be at home with his aggression. #Dementia/AMS - Oriented to person only. With worsening aggressive behaviors at home. No signs of acute infectionno leukocytosis, afebrile, UA negative, CXR negative, AP CT negative. TSH WNL. Recently evaluated by neurology 07/01 as patient still not improved from encephalopathy during recent admission from 06/10 to 06/15, he has at home rehab from this admission. Ordered head CT Patient's concerned about caring for him at home given his aggression however ultimate goal is for him to come back home, would like to consider poss ible evening medication adjustments Received Haldol 1 Mg IV in the ED for aggression, currently pleasant at bedside Consult neurology for possible medication adjustments - noted to have responded well to PO Zyprexa 2.5 mg prn in the past Continue sertraline 50 Mg daily and memantine 21 Mg daily - melatonin prn, promote good sleep wake cycles Fall and aspiration precautions #hypophosphatemia - Phos 2.1 on admission, renal function at baseline, other electrolytes stable. Unlikely to be contributing significantly to above. - 15 mmol K phos ordered on admission - trend BMP and phos #CKD stage 3 - Cr 1.41 on arrival, appears to be patient's new baseline. - Received 500 mL NSS bolus in the ED - LR @ 80 ml/hr x 1L Promote oral hydration Avoid nephrotoxic agents when able #sick sinus syndromes/p pacer #DVTdiagnosed during recent admission, continue Eliquis indefinitely. #HLDcontinue atorvastatin VTE ppx: continue home Eliquis Dispo: med surg Admission and Anticipated Discharge Date Admission Date: 07/07/25 History of Present Illness Chief Complaint: ams Primary Care Provider: Carlito Wynn DO Patient is a 80-year-old male with past medical history of dementia, HLD, HTN, GERD, complete heart block s/p pacer, recent DVT on Eliquis. Patient presented via EMS after worsening confusion/aggression at home. No signs of acute infection in the ED, electrolytes stable, TSH WNL. Will obtain head CT. Patient is being admitted given it is unsafe for him to be at home with his aggression. Patient seen at bedside. He is oriented to person only. Spoke with nursing at bedside who discussed care with patient's . Patient's called EMS due to concern for his worsening confusion to be considered for infectious workup which was negative. She considered weaning him back, however she feels it is unsafe given his worsening aggression in the past few weeks. Her ultimate goal is to have him come back home possibly with some medication adjustments at nighttime given his aggression occurs overnight. Allergies Allergy/AdvReac Type Severity Reaction Status Date / Time Penicillins Allergy Intermediate RASH Verified 07/01/25 11:16 shellfish derived Allergy Intermediate Rash-WITH Verified 07/01/25 11:16 SHELLFISH oxycodone AdvReac Intermediate confusion Verified 07/01/25 11:16 clindamycin AdvReac Mild Depression Verified 07/01/25 11:16 metoprolol AdvReac Mild Depression Verified 07/01/25 11:16 Home Medications Medication Instructions Recorded Confirmed Type famotidine 20 mg tablet 20 mg PO QAM PRN Acid Reflux #30 08/28/22 07/01/25 Rx tabs vitamin B complex 1 tab PO DAILY 03/31/24 07/01/25 History allopurinol 200 mg tablet 200 mg PO QAM #60 tabs 01/06/25 07/01/25 Rx sertraline 50 mg tablet 50 mg PO DAILY #90 tabs 04/28/25 07/01/25 Rx atorvastatin 40 mg tablet 40 mg PO QAM #90 tabs 06/24/25 07/01/25 Rx apixaban 5 mg tablet (Eliquis) 5 mg PO BID #30 tabs 07/01/25 07/01/25 Rx memantine 21 mg capsule 21 mg PO DAILY 90 days #90 ea 07/01/25 07/01/25 Rx sprinkle,extended release 24hr Past Med/Surg History Problem List (Updated 07/07/25 @ 02:01 by Heri Arciniega MD) Dementia (Acute) Acute urinary retention (Acute) Hypophosphatemia Dementia with behavioral disturbance Deep vein thrombosis (DVT) of popliteal vein of left lower extremity GATO (acute kidney injury) (Acute) Leukocytosis (Acute) Acute confusion (Acute) Ambulatory dysfunction (Acute) Generalized weakness (Acute) Dementia Hypertension (Chronic) Pacemaker Bradycardia by electrocardiogram Aortic stenosis Hyperlipidemia (Chronic) CKD (chronic kidney disease) stage 3, GFR 30-59 ml/min GERD (gastroesophageal reflux disease) (Chronic) Well controlled and stable Memory changes Abnormal CT scan, head NPH (normal pressure hydrocephalus) Urinary frequency (Acute) Second degree AV block, Mobitz type II 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 EMG Vitamin B12 deficiency Left knee DJD Osteoarthritis (Chronic) Lumbar radiculopathy (Acute) Physical deconditioning Gait abnormality (Acute) Medical History CHB (complete heart block) Gout Multiple fractures of ribs of right side Encounter for pre-operative examination Hx of hiatal hernia Surgical History History of bilateral knee replacement Status post total left knee replacement History of carpal tunnel release History of colonoscopy History of wisdom tooth extraction History of total right knee replacement History of ventral hernia repair S/P cholecystectomy Family History Mother Myocardial infarction Father Lung cancer Denies family history of Ovarian cancer Prostate cancer Breast cancer Colorectal cancer Social History Smoking Status: Never smoker Second Hand Exposure: No; Do You Dip or Chew Tobacco: No; Hx Alcohol Use: Yes Alcohol type: beer Alcohol Intake Frequency: 2-4 x/Month Alcohol Intake Frequency Comment: Averages 1 beer a week Hx Substance Use: No Preferred Language: Sinhala Communication Ability: Effective Communication Ability Comment: confused Visual Impairment: Diminished Hearing Ability: Normal Radio/Tv Technician Required: No Beliefs That Will Affect Care: None marital status: Current Living Situation: Spouse current occupational status: retired 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 Non-toxic appearing. HEENT- EOMI, mucous membranes moist. Hearing grossly intact. Heart-normal S1 and S2. No murmurs, rubs or gallops. Lungs-clear bilaterally, no respiratory distress, no accessory muscle use. Abdomen-normal bowel sounds and soft. No ascites noted. Non-tender. Extremities- no clubbing, cyanosis, or edema. Rheumatologic-normal range of motion. Results & Data Results & Data Vital Signs (Past 12 Hours) Vital Signs Temp Pulse Pulse Resp BP BP Pulse Ox 07/07/25 00:00 88 20 124/88 07/06/25 23:00 97 H 18 97 07/06/25 22:49 97 H 16 136/84 97 07/06/25 22:49 97 07/06/25 22:49 36.4 C 97 H 16 136/84 97 07/06/25 22:45 82 O2 Del Method 07/07/25 00:00 07/06/25 23:00 Room Air 07/06/25 22:49 Room Air 07/06/25 22:49 Room Air 07/06/25 22:49 Room Air 07/06/25 22:45 Laboratory Results reviewed cbc, cmp,mag, UA, tsh, phosphorus. troponin Diagnostic Findings reviewed CXR and AP CT Medications Administered ED - NSS 500 ml bolus, Haldol 1mg IV ECG Additional Comments: ordered Code Status & VTE Plan Code Status previous full code - unable to obtain given patient's dementia and no family at bedside VTE Prophylaxis Plan VTE Prophylaxis will be ordered: Yes Supervising Physician Co-Signing Physician Notes Attending addendum: I have physically seen this patient, have supervised the UNIQUE's activities, and agree with the H&P unless as otherwise noted. Assessment and Plan: The patient is an 80-year-old male with past medical history including dementia, hyperlipidemia, hypertension, GERD, complete heart block status post pacer, and recent DVT on Eliquis. He presented to the emergency department via EMS after developing worsening confusion and aggression at home. The patient is referred for evaluation and treatment to [facility], due to patient being unsafe at home due to progressive dementia and aggression. Dementia/aggression/altered mental status- Patient was noted to have worsening behaviors at home. No signs of acute infection to treat Ordering CT head without contrast Was given Haldol 1 mg IV from the ED, which has helped with his aggression Continue sertraline 50 mg daily and memantine 21 mg daily Consult neurology Hypophosphatemia- Phosphorus 2.1 on admission K-Phos 15 mmol ordered as noted and follow lab serially CKD stage III- Creatinine 1.41 on admission, with base 1.22 Placed on LR at 80 mL/h x 1 L Recheck laboratories in the a.m. DVT- On chronic Eliquis Sick sinus syndrome- status post pacer Hyperlipidemia- Continue atorvastatin PG Care Time/CCT Total # of Minutes Spent Total Time Spent with Patient: Total time spent is greater than 50% in coordination of care (as documented) at patient's floor/unit and/or counseling patient: Coding Level of Care Code 37859 INT INP/OBS CARE 3/75MIN Diagnoses Dementia with behavioral disturbance F03.918 Acute confusion R41.0 Hypophosphatemia E83.39
--- NOTE | 2025-07-07 01:50 | CT Scan Report ---
EXAM: CT abd pelvis wo con CLINICAL HISTORY: abd pain, urinary retention TECHNIQUE: Contiguous axial images were obtained from the level of the diaphragm to the pubic symphysis without intravenous or oral contrast. Coronal and sagittal reconstructions were likewise performed and indicated to increase the sensitivity for detecting clinically relevant pathology. CT scan was performed according to ALARA (as low as reasonable achievable). COMPARISON: August 01/2022 17:40:37 HYDRAULIC ASSEMBLER FINDINGS: The visualized lung bases are clear. Evaluation of the abdominal and pelvic visceral organs is limited without intravenous contrast. The unenhanced liver, spleen, pancreas, and adrenal glands are grossly unremarkable. Status post-cholecystectomy. The kidneys are normal in size and attenuation without obvious calcification. There is no hydronephrosis . Mild bilateral perinephric stranding. The ureters are normal in caliber. The urinary bladder is minimally distended with White's catheter in situ. Pelvic viscera are grossly unremarkable. No adenopathy or fluid collections are seen. No evidence of focal or diffuse bowel wall thickening or evidence of bowel obstruction is seen. No evidence of inflamed appendix. The aorta is normal in caliber. No aggressive appearing osseous lesions are identified. Multiple small uncomplicated colonic diverticulosis. Degenerative changes involving visualized spine. Retrolisthesis of L1 over L2, L2 over L3, L3 over L4 vertebra. IMPRESSION: Mild bilateral perinephric fat stranding-stable. Multiple small uncomplicated colonic diverticulosis.-stable. Degenerative changes swallowing visible spine.-stable. The urinary bladder is minimally distended with White's catheter in situ. No other new interval abnormality since prior study. Electronically signed by Ian Warren 07-07-2025 01:49 AM
[2025-07-07] MEDS ORDERED: POTASSIUM PHOS 3 MMOL/1 ML INFUSION IV STA (01:56)
[2025-07-07] MEDS: SODIUM CHLORIDE 0.9% 500 ML IV ONE (02:19)
[2025-07-07] MEDS ORDERED: DOCUSATE SODIUM 100 MG CAP PO PRN (02:20)
[2025-07-07] MEDS ORDERED: ACETAMINOPHEN 325 MG TAB PO PRN (02:20)
[2025-07-07] MEDS ORDERED: ONDANSETRON INJ 2 MG/ML 2 ML VIAL IV PRN (02:20)
[2025-07-07] MEDS ORDERED: FAMOTIDINE 20 MG TAB PO PRN (02:20)
--- NOTE | 2025-07-07 03:10 | CT Scan Report ---
EXAM: CT head/brain wo con CLINICAL HISTORY: ams TECHNIQUE: Axial non-contrast CT scan of the brain was performed from the skull base to the high parietal region .One of the following dose reduction techniques were utilized for this exam: Automated exposure control, adjustment of the mA and/or kV according to patient size, use of iterative reconstruction. COMPARISON: 06/09/2025 FINDINGS: Brain Parenchyma: There are ill-defined iso-to hypodense areas in the subcortical and periventricular white matter bilaterally, representing chronic microvascular ischemic changes. The rest of visualized brain parenchyma shows normal appearance. No intracerebral or extra axial hematoma. Ventricular System: Prominent ventricular system. Subarachnoid Spaces: The cortical sulci and basal cisterns are prominent, consistent with senile changes. Cerebellum and Brainstem: No masses, lesions, or areas of abnormal density. Orbits: Normal appearance of the globes, optic nerves, and extraocular muscles. No evidence of orbital masses or abnormal density. Visualised Paranasal sinuses: Clear paranasal sinuses. Mastoid Air Cells: Clear mastoid air cells. Skull and soft tissue: Normal skull morphology. IMPRESSION: No acute abnormality detected in plain CT head Chronic microvascular ischemic changes and senile cortical atrophy, grossly unchanged Electronically signed by Tex Staley 07-07-2025 03:08 AM
[2025-07-07] MEDS: POTASSIUM PHOSPHATE 15 MMOL in SODIUM CHLORIDE 0.9% 250 ML IV ONE (03:17)
[2025-07-07] MEDS: LACTATED RINGER'S 1,000 ML IV SCH (03:51)
[2025-07-07] MEDS: MEMANTINE HCL 5 MG TAB PO SCH ×2 (09:20→20:14)
[2025-07-07] MEDS: SERTRALINE HCL 50 MG TABLET PO SCH (09:20)
[2025-07-07] MEDS: ATORVASTATIN 40 MG TAB PO SCH (09:21)
[2025-07-07] MEDS: APIXABAN 5 MG TABLET PO SCH (09:21)
--- NOTE | 2025-07-07 17:32 | Neurology Consultation ---
Date of Consultation July 07, 2025 Assessment & Plan (1) Dementia with behavioral disturbance: Plan 80-year-old male with a history of dementia with behavioral disturbance. Has had a tendency for agitation and aggressiveness recently. Had some urinary retention in the context of this most recent hospitalization that may have triggered some of his acute behavioral change. Currently, his dementia does appear to be moderate to severe. He is not agitated at this time, exhibits very limited attention, he is perseverative and has difficulty following commands. He is disoriented to place and time. His thought processes quite confused and he sometimes makes nonsensical statements. May continue with memantine. He was taking 21 mg/day as extended release memantine. It would not be unreasonable to change his memantine to 10 mg twice daily while in the hospital. I would not start a cholinesterase inhibitor such as donepezil or rivastigmine at this point in time. I do agree with Zyprexa as prescribed, 2.5 mg twice daily. If necessary, the dosage can be increased. Could also ask for psychiatry assistance depending on how he does. He may continue with sertraline at the current dosage. I do not think an EEG or lumbar puncture are necessary at this time. He may follow-up with either Lisa Dacosta or Dr. Serrano in neurology clinic in 2 to 3 weeks after discharge. Please call with any questions. History of Present Illness Reason for Consultation: Dementia, agitation, aggression, medication adjustment? Requesting Physician: Jing Attending Physician: Damaso Hopkins MD History of Present Illness The patient is an 80-year-old male who follows in our neurology clinic with Lisa Dacosta PA-C, and Dr. Serrano, for dementia. Was last seen July 01, 2025 after a recent hospitalization for encephalopathy in the context of acute kidney injury. He has been prescribed memantine, and sertraline. He presented to the emergency department overnight with increasing agitation, restlessness, abdominal pain and distention, urinary retention. A CT of the head was negative for hemorrhage or acute process, there is generalized atrophy and chronic microvascular ischemic disease. I independently reviewed these images. I reviewed his labs as well, no leukocytosis, he does have a mild anemia, sodium and potassium are both normal, does have an elevated creatinine. He is currently confused and is an unreliable historian. See examination below for further details. Allergies Allergy/AdvReac Type Severity Reaction Status Date / Time Penicillins Allergy Intermediate RASH Verified 07/01/25 11:16 shellfish derived Allergy Intermediate Rash-WITH Verified 07/01/25 11:16 SHELLFISH oxycodone AdvReac Intermediate confusion Verified 07/01/25 11:16 clindamycin AdvReac Mild Depression Verified 07/01/25 11:16 metoprolol AdvReac Mild Depression Verified 07/01/25 11:16 Home Medications Medication Instructions Recorded Confirmed Type famotidine 20 mg tablet 20 mg PO QAM PRN Acid Reflux #30 08/28/22 07/07/25 Rx tabs vitamin B complex 1 tab PO DAILY 03/31/24 07/07/25 History allopurinol 200 mg tablet 200 mg PO QAM #60 tabs 01/06/25 07/07/25 Rx sertraline 50 mg tablet 50 mg PO DAILY #90 tabs 04/28/25 07/07/25 Rx atorvastatin 40 mg tablet 40 mg PO QAM #90 tabs 06/24/25 07/07/25 Rx apixaban 5 mg tablet (Eliquis) 5 mg PO BID #30 tabs 07/01/25 07/07/25 Rx memantine 21 mg capsule 21 mg PO DAILY 90 days #90 ea 07/01/25 07/07/25 Rx sprinkle,extended release 24hr Patient History Medical History CHB (complete heart block) Gout Multiple fractures of ribs of right side Encounter for pre-operative examination Hx of hiatal hernia Surgical History History of bilateral knee replacement Status post total left knee replacement History of carpal tunnel release History of colonoscopy History of wisdom tooth extraction History of total right knee replacement History of ventral hernia repair S/P cholecystectomy Family History Mother Myocardial infarction Father Lung cancer Denies family history of Ovarian cancer Prostate cancer Breast cancer Colorectal cancer Social History Smoking Status: Never smoker Second Hand Exposure: No; Do You Dip or Chew Tobacco: No; Hx Alcohol Use: Yes Alcohol type: beer Alcohol Intake Frequency: 2-4 x/Month Alcohol Intake Frequency Comment: Averages 1 beer a week Hx Substance Use: No Preferred Language: Azeri Communication Ability: Effective Communication Ability Comment: confused Visual Impairment: Diminished Hearing Ability: Normal Sports Agent Required: No Beliefs That Will Affect Care: None marital status: Current Living Situation: Spouse current occupational status: retired current occupation: Former special in service educator retiring age 61 How many Children do You have: 0 How many Children do You have Comment: none Feels Safe at Home: Yes Childhood Exposure to Second-Hand Smoke: No Diet: regular caffeine: Yes Dental Care, Regularly: Yes Physical Activity Frequency: Does not Exercise Seatbelt Use: always Sunscreen Use: Yes Assistive Devices: Bedside Commode, Cane and Walker Review of Systems Review of Systems: Unobtainable due to cognitive status Exam (Neuro) Constitutional: well developed, well nourished and + behavioral limitations; no acute distress Eyes: normal visual gonzalez by confrontation, PERRL and EOM intact bilaterally; no nystagmus Neurologic: Oriented to:: Person; negative Place or Time Cognitive Functi on: negative Insight, Abstraction, Calculations or Time Awareness Memory: negative Short Term Intact or Remote Intact Attention: negative Span Intact or Concentration Intact Speech Fluency: negative Dysarthria or Dysfluency Speech Aphasia: negative Aphasia Fund of Knowledge: Vocabulary; negative Current Events or Past History Cranial Nerves: Normal II, III, IV, , V, VII, VIII, IX, X, XI and XII Motor Strength: Normal Lower Extremities and Normal Upper Extremities Motor Tone: Normal Lower Extremities and Normal Upper Extremities Muscle Bulk/Involuntary Movements: No Involuntary Movements; negative Muscle Atrophy Sensation: Light Touch Intact, Pain/Temperature Intact and Proprioception Intact Coordination: negative Dysdiadochokinesia or Finger-Nose Abnormal Deep Tendon Reflexes: Rt Triceps: 2+, Lt Triceps: 2+, Rt Biceps: 2+, Lt Biceps: 2+, Rt Brachioradialis: 2+, Lt Brachioradialis: 2+, Rt Patellar: 2+, Lt Patellar: 2+, Rt Ankle: 1+ and Lt Ankle: 1+ Special Tests: negative Babinski Present Results & Data Vital Signs (Past 12 Hours) Vital Signs Pulse Pulse Resp BP Pulse Ox O2 Del Method 07/07/25 15:02 88 17 120/70 97 Room Air 07/07/25 15:00 88 07/07/25 08:08 91 H 16 102/55 L 97 Room Air 07/07/25 07:26 100 H Laboratory Results WBC 8.81, hemoglobin 11.9, hematocrit 36.2, MCV 90.5, platelet count 283, sodium 139, potassium 4.3, BUN 27, creatinine 1.41, glucose 90, calcium 9.3, magnesium 2.0, AST 23, ALT 20, TSH 2.662 Diagnostic Findings Electrocardiogram revealed an AV dual paced rhythm. Coding Level of Care Code 38680 INT INP/OBS CARE 2/55MIN Diagnoses Dementia with behavioral disturbance F03.918 Time Spent (min) 60
[2025-07-07] MEDS: OLANZAPINE 2.5 MG TAB PO SCH (20:13)
[2025-07-07] MEDS: MELATONIN 3 MG TAB PO PRN (20:15)
[2025-07-08 09:44] LABS: Anion Gap 8.0 (3-11); Blood Urea Nitrogen 19.0 mg/dl (6-23); Calcium 9.1 mg/dl (8.6-10.3); Carbon Dioxide 25.0 mmol/L (21-32); Chloride 107.0 mmol/L (98-107); Creatinine Clr Calc Pharmacy 52.1 ml/min; Glucose 90.0 mg/dl (70-99(Fasting)); Potassium 4.0 mmol/L (3.5-5.1); Sodium 140.0 mmol/L (136-145)
--- NOTE | 2025-07-08 10:47 | Hospitalist Progress Note ---
Date of Service July 08, 2025 Assessment & Plan (1) Dementia with behavioral disturbance: (2) Acute confusion: (3) Hypophosphatemia: Plan Patient is a 80-year-old male with past medical history of dementia, HLD, HTN, GERD, complete heart block s/p pacer, recent DVT on Eliquis. Patient presented via EMS after worsening confusion/aggression at home. No signs of acute infection in the ED, TSH WNL. Will obtain head CT. Patient is being admitted given it is unsafe for him to be at home with his aggression. #Dementia/AMS - Oriented to person only. With worsening aggressive behaviors at home. -No signs of acute infectionno leukocytosis, afebrile, UA negative, CXR negative, AP CT negative. TSH WNL. -Recently evaluated by neurology 07/01 as patient still not improved from encephalopathy during recent admission from 06/10 to 06/15, he has at home rehab from this admission. Patient's concerned about caring for him at home given his aggression however ultimate goal is for him to come back home, would like to consider possible evening medication adjustments Received Haldol 1 Mg IV in the ED for aggression, currently pleasant at bedside Neurology evaluated, appreciate recs - noted to have responded well to PO Zyprexa 2.5 mg prn in the past ( I think we can schedule the zyprexa 2.5mg BID at home) Continue sertraline 50 Mg daily and memantine 21 Mg daily - melatonin prn, promote good sleep wake cycles Fall and aspiration precautions #hypophosphatemia - Phos 2.1 on admission, renal function at baseline, other electrolytes stable. Unlikely to be contributing significantly to above. - 15 mmol K phos ordered on admission - trend BMP and phos #CKD stage 3 - Cr 1.41 on arrival, appears to be patient's new baseline. - Received 500 mL NSS bolus in the ED - LR @ 80 ml/hr x 1L Promote oral hydration Avoid nephrotoxic agents when able #sick sinus syndromes/p pacer #DVTdiagnosed during recent admission, continue Eliquis indefinitely. #HLDcontinue atorvastatin VTE ppx: continue home Eliquis Dispo: Hopefully d/c in the next 24 hrs Admission and Anticipated Discharge Date Admission Date: July 07, 2025 Subjective Patient seen and examined, lying quietly in bed still confused Review of Systems Review of Systems: unreliable due to dementia Physical Exam Physical Exam: The patient is awake, alert and confused HEENT--PERRL, EOMI, mucous membranes and oropharynx mildly dry Neck--supple. No JVD. No bruits. Thyroid normal, trachea midline, no adenopathy. Heart--normal S1 and S2. No murmurs, rubs or gallops. Lungs--clear bilaterally, no respiratory distress, no accessory muscle use. Abdomen--normal bowel sounds and soft. Extremities--no cyanosis or clubbing. No edema. Dermatologic--normal skin turgor, normal color, no abnormal lymph nodes, no rash. Neurologic--cranial nerves II through XII grossly intact. Rheumatologic--normal range of motion. Psychiatric--normal affect. Results & Data Results & Data Vital Signs (Past 12 Hours) Vital Signs Temp Pulse Resp BP Pulse Ox O2 Del Method 07/08/25 07:46 98.6 F 98 H 17 127/74 97 Room Air PG Care Time/CCT Total # of Minutes Spent Total Time Spent with Patient: Total time spent is greater than 50% in coordination of care (as documented) at patient's floor/unit and/or counseling patient: Coding Level of Care Code 24989 SUB INP/OBS CARE 2/35MIN Diagnoses Dementia with behavioral disturbance F03.918 Acute confusion R41.0 Hypophosphatemia E83.39 Time Spent (min) 35
--- NOTE | 2025-07-08 17:42 | Electrocardiogram Report ---
Test Reason : Blood Pressure : */* mmHG Vent. Rate : 73 BPM Atrial Rate : 73 BPM P-R Int : 172 ms QRS Dur : 90 ms QT Int : 374 ms P-R-T Axes : * -39 73 degrees QTcB Int : 412 ms Poor data quality, interpretation may be adversely affected AV dual-paced rhythm Abnormal ECG When compared with ECG of 09-Jun-2025 19:49, Vent. rate has decreased by 10 bpm Confirmed by Christiano Negrete ([id number]) on 07/08/2025 5:41:44 PM Referred By: REFERRED SELF Confirmed By: Christiano Negrete
--- NOTE | 2025-07-09 11:10 | Hospitalist Progress Note ---
Date of Service July 09, 2025 Assessment & Plan (1) Dementia with behavioral disturbance: (2) Acute confusion: (3) Hypophosphatemia: Plan Patient is a 80-year-old male with past medical history of dementia, HLD, HTN, GERD, complete heart block s/p pacer, recent DVT on Eliquis. Patient presented via EMS after worsening confusion/aggression at home. No signs of acute infection in the ED, TSH WNL. Will obtain head CT. Patient is being admitted given it is unsafe for him to be at home with his aggression. #Dementia/AMS - Oriented to person only. - Admitted With worsening aggressive behaviors at home. -No signs of acute infectionno leukocytosis, afebrile, UA negative, CXR negative, AP CT negative. TSH WNL. Neurology evaluated, appreciate recs - noted to have responded well to PO Zyprexa 2.5 mg prn in the past ( I think we can schedule the zyprexa 2.5mg BID at home) Continue sertraline 50 Mg daily and memantine 21 Mg daily - melatonin prn, promote good sleep wake cycles Fall and aspiration precautions -Patient has been calm and no longer aggressive - said with the football, visitors may trigger him again -Plan is to d/c him on saturday #hypophosphatemia - Replace #CKD stage 3 - Renal function is at baseline #sick sinus syndromes/p pacer #DVTdiagnosed during recent admission, continue Eliquis indefinitely. #HLDcontinue atorvastatin VTE ppx: continue home Eliquis Dispo: Hopefully d/c on Saturday Admission and Anticipated Discharge Date Admission Date: July 07, 2025 Subjective Patient seen and examined, lying quietly in bed still confused Review of Systems Review of Systems: unreliable due to dementia Physical Exam Physical Exam: The patient is awake, alert and confused HEENT--PERRL, EOMI, mucous membranes and oropharynx mildly dry Neck--supple. No JVD. No bruits. Thyroid normal, trachea midline, no adenopathy. Heart--normal S1 and S2. No murmurs, rubs or gallops. Lungs--clear bilaterally, no respiratory distress, no accessory muscle use. Abdomen--normal bowel sounds and soft. Extremities--no cyanosis or clubbing. No edema. Dermatologic--normal skin turgor, normal color, no abnormal lymph nodes, no rash. Neurologic--cranial nerves II through XII grossly intact. Rheumatologic--normal range of motion. Psychiatric--normal affect. Results & Data Results & Data Vital Signs (Past 12 Hours) Vital Signs Temp Pulse Resp BP Pulse Ox O2 Del Method 07/09/25 08:02 98.2 F 92 H 18 135/83 97 Room Air 07/09/25 00:40 97.7 F 88 94 Room Air PG Care Time/CCT Total # of Minutes Spent Total Time Spent with Patient: Total time spent is greater than 50% in coordination of care (as documented) at patient's floor/unit and/or counseling patient: Coding Level of Care Code 04922 SUB INP/OBS CARE 2/35MIN Diagnoses Dementia with behavioral disturbance F03.918 Acute confusion R41.0 Hypophosphatemia E83.39 Time Spent (min) 35
--- NOTE | 2025-07-10 10:18 | Hospitalist Progress Note ---
Date of Service July 10, 2025 Assessment & Plan (1) Dementia with behavioral disturbance: (2) Acute confusion: (3) Hypophosphatemia: Plan Patient is a 80-year-old male with past medical history of dementia, HLD, HTN, GERD, complete heart block s/p pacer, recent DVT on Eliquis. Patient presented via EMS after worsening confusion/aggression at home. No signs of acute infection in the ED, TSH WNL. Will obtain head CT. Patient is being admitted given it is unsafe for him to be at home with his aggression. #Dementia/AMS - Oriented to person only. - Admitted With worsening aggressive behaviors at home. -No signs of acute infectionno leukocytosis, afebrile, UA negative, CXR negative, AP CT negative. TSH WNL. Neurology evaluated, appreciate recs - noted to have responded well to PO Zyprexa 2.5 mg prn in the past ( I think we can schedule the zyprexa 2.5mg BID at home) Continue sertraline 50 Mg daily and memantine 21 Mg daily - melatonin prn, promote good sleep wake cycles Fall and aspiration precautions -Patient has been calm and no longer aggressive - said with the weekend football, visitors may trigger him again -Plan is to d/c him on saturday #hypophosphatemia - Replace #CKD stage 3 - Renal function is at baseline #sick sinus syndromes/p pacer #DVTdiagnosed during recent admission, continue Eliquis indefinitely. #HLDcontinue atorvastatin VTE ppx: continue home Eliquis Dispo: Hopefully d/c on Saturday Admission and Anticipated Discharge Date Admission Date: July 07, 2025 Subjective Patient seen and examined, lying quietly in bed still confused. will remove his mckay today and wear him depends as discussed with his Review of Systems 2 Review of Systems: unreliable due to dementia Physical Exam Physical Exam: The patient is awake, alert and confused HEENT--PERRL, EOMI, mucous membranes and oropharynx mildly dry Neck--supple. No JVD. No bruits. Thyroid normal, trachea midline, no adenopathy. Heart--normal S1 and S2. No murmurs, rubs or gallops. Lungs--clear bilaterally, no respiratory distress, no accessory muscle use. Abdomen--normal bowel sounds and soft. Extremities--no cyanosis or clubbing. No edema. Dermatologic--normal skin turgor, normal color, no abnormal lymph nodes, no rash. Neurologic--cranial nerves II through XII grossly intact. Rheumatologic--normal range of motion. Psychiatric--normal affect. Results & Data Results & Data Vital Signs (Past 12 Hours) Vital Signs Temp Pulse Resp BP Pulse Ox O2 Del Method 07/10/25 07:28 97.9 F 101 H 20 104/67 97 Room Air 07/09/25 23:00 98.1 F 96 H 20 127/76 95 Room Air PG Care Time/CCT Total # of Minutes Spent Total Time Spent with Patient: Total time spent is greater than 50% in coordination of care (as documented) at patient's floor/unit and/or counseling patient: Coding Level of Care Code 78817 SUB INP/OBS CARE 2/35MIN Diagnoses Dementia with behavioral disturbance F03.918 Acute confusion R41.0 Hypophosphatemia E83.39 Time Spent (min) 35
[2025-07-10 22:58] VITALS: RESP 18
[2025-07-11 08:07] VITALS: BP 126/80; PULSE 101; TEMP 96.6; O2SAT 98
--- NOTE | 2025-07-11 09:27 | Discharge Summary ---
Date of Service July 11, 2025 Admission HPI Per Admitting Provider Patient is a 80-year-old male with past medical history of dementia, HLD, HTN, GERD, complete heart block s/p pacer, recent DVT on Eliquis. Patient presented via EMS after worsening confusion/aggression at home. No signs of acute infection in the ED, electrolytes stable, TSH WNL. Will obtain head CT. Patient is being admitted given it is unsafe for him to be at home with his aggression. Patient seen at bedside. He is oriented to person only. Spoke with nursing at bedside who discussed care with patient's . Patient's called EMS due to concern for his worsening confusion to be considered for infectious workup which was negative. She considered weaning him back, however she feels it is unsafe given his worsening aggression in the past few weeks. Her ultimate goal is to have him come back home possibly with some medication adjustments at nighttime given his aggression occurs overnight. Admission Exam (Per Admitting) Constitutional The patient is awake, alert and confused HEENT--PERRL, EOMI, mucous membranes and oropharynx mildly dry Neck--supple. No JVD. No bruits. Thyroid normal, trachea midline, no adenopa thy. Heart--normal S1 and S2. No murmurs, rubs or gallops. Lungs--clear bilaterally, no respiratory distress, no accessory muscle use. Abdomen--normal bowel sounds and soft. Extremities--no cyanosis or clubbing. No edema. Dermatologic--normal skin turgor, normal color, no abnormal lymph nodes, no rash. Neurologic--cranial nerves II through XII grossly intact. Rheumatologic--normal range of motion. Psychiatric--normal affect. Discharge Data Consultations 07/07/25 01:01 ED Decision to Admit Stat 07/07/25 02:20 Consult Neurology Routine Hospital Course (1) Dementia with behavioral disturbance: (2) Acute confusion: (3) Hypophosphatemia: Plan Patient is a 80-year-old male with past medical history of dementia, HLD, HTN, GERD, complete heart block s/p pacer, recent DVT on Eliquis. Patient presented via EMS after worsening confusion/aggression at home. No signs of acute infection in the ED, TSH WNL. Will obtain head CT. Patient is being admitted given it is unsafe for him to be at home with his aggression. #Dementia/AMS - Oriented to person only. - Admitted With worsening aggressive behaviors at home. -No signs of acute infectionno leukocytosis, afebrile, UA negative, CXR negative, AP CT negative. TSH WNL. Neurology evaluated, appreciate recs - noted to have responded well to PO Zyprexa 2.5 mg prn in the past ( I think we can schedule the zyprexa 2.5mg BID at home) Continue sertraline 50 Mg daily and memantine 21 Mg daily - melatonin prn, promote good sleep wake cycles Fall and aspiration precautions -Patient has been calm and no longer aggressive - said with the weekend football, visitors may trigger him again -Plan is to d/c him today on scheduled PO zyprexa 2.5mg BID #hypophosphatemia - Replace #CKD stage 3 - Renal function is at baseline #sick sinus syndromes/p pacer #DVTdiagnosed during recent admission, continue Eliquis indefinitely. #HLDcontinue atorvastatin VTE ppx: continue home Eliquis Dispo: Hopefully d/c on Saturday Coding Level of Care Code 27537 INP/OBS DISCH >30 MIN Diagnoses Dementia with behavioral disturbance F03.918 Acute confusion R41.0 Hypophosphatemia E83.39 Time Spent (min) 35
== END 2025-07-11 12:49 | disposition home or self-care (01) | DRG 884 ==
LOC: ED 22:29 → EDINP 07-07 01:37 → SUATTDRO 07-07 01:37 → 3W 07-07 02:07